=== PATIENT | female | born 1960 | race Caucasian/White ===

== ENCOUNTER 2018-05-05 22:38 | Emergency (ER) | payer OTHER, SELFPAY ==
--- NOTE | 2018-05-06 00:50 | ER ---
Nurse's Notes [facility] Name: Estephanie Paige Age: 57 yrs Sex: Female : 1960 Arrival Date: 05/05/2018 Time: 22:43 Bed 16 Private MD: Mario Stevens S Diagnosis: Unspecified sprain of left little finger Presentation: 05/05 22:54 Presenting complaint: Patient states: Patient states she injured her left little finger ea getting into her truck about four days ago. States she tried grabbing the handle while getting in and accidently tugged her little finger. Transition of care: patient was not received from another setting of care. Onset of symptoms was May 05, 2018. Risk Assessment: Do you want to hurt yourself or someone else? Patient reports no desire to harm self or others. Initial Sepsis Screen: Does the patient meet any 2 criteria? No. Patient's initial sepsis screen is negative. Does the patient have a suspected source of infection? No. Patient's initial sepsis screen is negative. Care prior to arrival: None. 22:54 Method Of Arrival: Ambulatory ea 22:54 Acuity: SARA 3 ea Triage Assessment: 22:58 General: Appears uncomfortable, Behavior is calm, cooperative, appropriate for age. ea Pain: Complains of pain in palmar aspect of distal phalanx of left little finger, palmar aspect of middle phalanx of left little finger and palmar aspect of proximal phalanx of left little finger Pain currently is 6 out of 10 on a pain scale. Quality of pain is described as aching. Neuro: Level of Consciousness is awake, alert, obeys commands, Oriented to person, place, time, situation. Cardiovascular: Heart tones S1 S2 present Patient's skin is warm and dry. Respiratory: Airway is patent Respiratory effort is even, unlabored, Respiratory pattern is regular, symmetrical, Breath sounds are clear bilaterally. GI: No deficits noted. Musculoskeletal: Range of motion: limited in DIP of left little finger, PIP of left little finger and MCP of left little finger Swelling present in palmar aspect of distal phalanx of left little finger, palmar aspect of middle phalanx of left little finger and palmar aspect of proximal phalanx of left little finger. Injury Description: swelling noted to left little finger. 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 - Social history:: Smoking status: Patient/guardian denies using tobacco. - Ebola Screening: : No symptoms or risks identified at this time. Screenin:01 Abuse screen: Denies threats or abuse. Nutritional screening: No deficits noted. ea Tuberculosis screening: No symptoms or risk factors identified. Fall Risk None identified. Assessment: 23:41 Reassessment: Patient and/or family updated on plan of care and expected duration. Pain ea level reassessed. Patient is alert, oriented x 3, equal unlabored respirations, skin warm/dry/pink. 05/06 00:55 Reassessment: Patient and/or family updated on plan of care and expected duration. Pain ea level reassessed. Patient is alert, oriented x 3, equal unlabored respirations, skin warm/dry/pink. Discharge instructions given to patient verbalized the understanding of instructions Patient states feeling better. Patient states symptoms have improved. Vital Signs: 05/05 23:00 BP 144 / 91; Pulse 81; Resp 18; Temp 98.4; Pulse Ox 99% on R/A; Weight 101.6 kg; Height ea 5 ft. 6 in. (167.64 cm); Pain 7/10; 23:51 BP 122 / 80; Pulse 90; Resp 18; Pulse Ox 100% on R/A; mt 05/06 00:45 BP 105 / 86; Pulse 79; Resp 18; Pulse Ox 98% on R/A; Pain 3/10; ea 05/05 23:00 Body Mass Index 36.15 (101.60 kg, 167.64 cm) ea ED Course: 05/05 22:43 Patient arrived in ED. al2 22:43 Mario Stevens MD is Private Physician. al2 22:53 Kathy Phan RN is Primary Nurse. ea 22:56 Triage completed. ea 23:02 Patient has correct armband on for positive identification. Bed in low position. Call ea light in reach. Side rails up X 1. 23:02 Arm band placed on right wrist. Patient placed in an exam room, on a stretcher, on ea pulse oximetry. 23:20 left little finger injury. ea 23:25 Keith Koenig NP is PHCP. pm1 23:25 Quentin Hubbard MD is Attending Physician. pm1 23:45 X-ray completed. Portable x-ray completed in exam room. Patient tolerated procedure kw well. 23:46 XRAY Hand LEFT 2 View In Process Unspecified. EDMS 05/06 00:35 Aluminum finger splint applied to left little finger. mt 00:46 No provider procedures requiring assistance completed. Patient did not have IV access ea during this emergency room visit. 00:48 Carlyle Magana MD is Referral Physician. pm1 Administered Medications: No medications were administered Outcome: 00:48 Discharge ordered by . pm1 01:00 Condition: improved ea 01:00 Discharge instructions given to patient, Instructed on discharge instructions, follow up and referral plans. medication usage, Demonstrated understanding of instructions, follow-up care, medications, Prescriptions given X 1. 01:01 Discharged to home ambulatory, with significant other. ea 01:01 Patient left the ED. ea Signatures: Dispatcher [employer] EDIN Maci Garsia Keith Koenig NP HOSPICE COMMUNITY LIAISON pm1 Lesia Loya mt, Elena, KENTRELL RN Teresita Lagos
--- NOTE | 2018-05-06 00:50 | EDPHYS ---
Physician Documentation [facility] Name: Estephanie Paige Age: 57 yrs Sex: Female : 1960 Arrival Date: 05/05/2018 Time: 22:43 Bed 16 Private MD: Mario Stevens S ED Physician Quentin Hubbard HPI: 05/06 00:40 This 57 yrs old Female presents to ER via Ambulatory with complaints of Hand pm1 Injury. 00:40 The patient or guardian reports pain. The complaints affect the PIP of left little pm1 finger. Context: The problem was sustained at home, resulted from possible jamming of finger when reaching for pull up bar while getting in and out of truck. Onset: The symptoms/episode began/occurred 4 day(s) ago. Modifying factors: The symptoms are alleviated by nothing, the symptoms are aggravated by bending 5th finger. Associated signs and symptoms: Pertinent negatives: cyanosis distally, decreased sensation distally, numbness distally, tingling distally. Severity of symptoms: in the emergency department the symptoms are actually worse. The patient has not experienced similar symptoms in the past. The patient has not recently seen a physician. 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 - Social history:: Smoking status: Patient/guardian denies using tobacco. - Ebola Screening: : No symptoms or risks identified at this time. ROS: 05/06 00:40 Constitutional: Negative for fever, chills, and weight loss, Eyes: Negative for injury, pm1 pain, redness, and discharge, ENT: Negative for injury, pain, and discharge, Neck: Negative for injury, pain, and swelling, Cardiovascular: Negative for chest pain, palpitations, and edema, Respiratory: Negative for shortness of breath, cough, wheezing, and pleuritic chest pain, Abdomen/GI: Negative for abdominal pain, nausea, vomiting, diarrhea, and constipation, Back: Negative for injury and pain. Skin: Negative for injury, rash, and discoloration, Neuro: Negative for headache, weakness, numbness, tingling, and seizure. MS/extremity: Positive for pain, of the left hand and PIP of left little finger, Negative for decreased range of motion, deformity. Exam: 00:40 Constitutional: This is a well developed, well nourished patient who is awake, alert, pm1 and in no acute distress. Head/Face: Normocephalic, atraumatic. Eyes: Pupils equal round and reactive to light, extra-ocular motions intact. Lids and lashes normal. Conjunctiva and sclera are non-icteric and not injected. Cornea within normal limits. Periorbital areas with no swelling, redness, or edema. ENT: Nares patent. No nasal discharge, no septal abnormalities noted. Tympanic membranes are normal and external auditory canals are clear. Oropharynx with no redness, swelling, or masses, exudates, or evidence of obstruction, uvula midline. Mucous membranes moist. Neck: Trachea midline, no thyromegaly or masses palpated, and no cervical lymphadenopathy. Supple, full range of motion without nuchal rigidity, or vertebral point tenderness. No Meningismus. Chest/axilla: Normal chest wall appearance and motion. Nontender with no deformity. No lesions are appreciated. Cardiovascular: Regular rate and rhythm with a normal S1 and S2. No gallops, murmurs, or rubs. Normal PMI, no JVD. No pulse deficits. Respiratory: Lungs have equal breath sounds bilaterally, clear to auscultation and percussion. No rales, rhonchi or wheezes noted. No increased work of breathing, no retractions or nasal flaring. Abdomen/GI: Soft, non-tender, with normal bowel sounds. No distension or tympany. No guarding or rebound. No evidence of tenderness throughout. Back: No spinal tenderness. No costovertebral tenderness. Full range of motion. 00:40 Skin: Warm, dry with normal turgor. Normal color with no rashes, no lesions, and no evidence of cellulitis. 00:40 Musculoskeletal/extremity: Extremities: grossly normal except: noted in the PIP of left little finger: tenderness. 00:40 Neuro: Orientation: is normal, Motor: is normal, moves all fours. Vital Signs: 05/05 23:00 BP 144 / 91; Pulse 81; Resp 18; Temp 98.4; Pulse Ox 99% on R/A; Weight 101.6 kg; Height ea 5 ft. 6 in. (167.64 cm); Pain 7/10; 23:51 BP 122 / 80; Pulse 90; Resp 18; Pulse Ox 100% on R/A; mt 05/06 00:45 BP 105 / 86; Pulse 79; Resp 18; Pulse Ox 98% on R/A; Pain 3/10; ea 05/05 23:00 Body Mass Index 36.15 (101.60 kg, 167.64 cm) ea MDM: 00:13 Patient medically screened. pm1 00:47 Data reviewed: vital signs. Data interpreted: Pulse oximetry: on room air is 98 %. pm1 Interpretation: normal. Counseling: I had a detailed discussion with the patient and/or guardian regarding: the historical points, exam findings, and any diagnostic results supporting the discharge/admit diagnosis, radiology results, the need for outpatient follow up, a hand specialist, to return to the emergency department if symptoms worsen or persist or if there are any questions or concerns that arise at home. 05/05 23:20 Order name: XRAY Hand LEFT 2 View ea 05/06 00:47 Order name: Splint - Finger; Complete Time: 00:48 pm1 Administered Medications: No medications were administered Disposition: 04:25 Co-signature as Attending Physician, Quentin Hubbard MD I agree with the assessment and wa plan of care. Disposition: 05/06/18 00:48 Discharged to Home. Impression: Unspecified sprain of left little finger. - Condition is Stable. - Discharge Instructions: Cast or Splint Care, Adult, Finger Sprain, Adult. - Prescriptions for Naprosyn 500 mg Oral Tablet - take 1 tablet by ORAL route 2 times per day take with food; 30 tablet. - Medication Reconciliation Form, Thank You Letter form. - Follow up: Emergency Department; When: As needed; Reason: Worsening of condition. Follow up: Carlyle Magana MD; When: 5 - 6 days; Reason: Recheck today's complaints, Continuance of care, Re-evaluation by your physician. - Problem is new. - Symptoms have improved. Signatures: Dispatcher [employer] EDMS Keith Koenig, [employer] W[employer]ER pm1 Kathy Phan, Quentin Smith RN, ea, MD MD wa Corrections: (The following items were deleted from the chart) 00:49 00:48 05/06/2018 00:48 Discharged to Home. Impression: Other sprain of left index pm1 finger. Condition is Stable. Forms are Medication Reconciliation Form, Thank You Letter, Antibiotic Education, Prescription Opioid Use. Follow up: Emergency Department; When: As needed; Reason: Worsening of condition. Follow up: Carlyle Magana; When: 2 - 3 days; Reason: Recheck today's complaints, Continuance of care, Re-evaluation by your physician. Problem is new. Symptoms have improved. pm1 00:50 00:49 05/06/2018 00:48 Discharged to Home. Impression: Other sprain of left index pm1 finger. Condition is Stable. Discharge Instructions: Cast or Splint Care, Adult, Finger Sprain, Adult. Prescriptions for Naprosyn 500 mg Oral Tablet - take 1 tablet by ORAL route 2 times per day take with food; 30 tablet. and Forms are Medication Reconciliation Form, Thank You Letter. Follow up: Emergency Department; When: As needed; Reason: Worsening of condition. Follow up: Carlyle Magana; When: 5 - 6 days; Reason: Recheck today's complaints, Continuance of care, Re-evaluation by your physician. Problem is new. Symptoms have improved. pm1 01:01 00:50 05/06/2018 00:48 Discharged to Home. Impression: Unspecified sprain of left ea little finger. Condition is Stable. Discharge Instructions: Cast or Splint Care, Adult, Finger Sprain, Adult. Prescriptions for Naprosyn 500 mg Oral Tablet - take 1 tablet by ORAL route 2 times per day take with food; 30 tablet. and Forms are Medication Reconciliation Form, Thank You Letter. Follow up: Emergency Department; When: As needed; Reason: Worsening of condition. Follow up: Carlyle Magana; When: 5 - 6 days; Reason: Recheck today's complaints, Continuance of care, Re-evaluation by your physician. Problem is new. Symptoms have improved. pm1
--- NOTE | 2018-05-06 08:39 | RAD REPORT ---
EXAM DESCRIPTION: RAD - Hand Left 2 View - 05/05/2018 11:46 pm CLINICAL HISTORY: Left hand pain, pain to the fifth digit COMPARISON: None. FINDINGS: No fracture is identified. There is no dislocation or periosteal reaction noted. IP joint space narrowing is present in the hand. Joint space narrowing is most notable at the fifth DIP joint. No spurring or erosive changes seen. MCP joints are spared. No foreign body or other soft tissue abn ormality. 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 No acute or destructive finding.
== END 2018-05-06 01:01 | disposition home or self-care (01) ==
LOC: ER 22:38
DX: S63.617A Unspecified sprain of left little finger, initial encounter (principal); X58.XXXA Exposure to other specified factors, initial encounter; Y93.89 Activity, other specified; Y92.009 Unspecified place in unspecified non-institutional (private) residence as the place of occurrence of the external cause; Z88.5 Allergy status to narcotic agent; F32.9 Major depressive disorder, single episode, unspecified; R73.03 Prediabetes
CPT/HCPCS: 99284

== ENCOUNTER 2018-08-08 08:40 | Emergency (ER) | payer OTHER, SELFPAY ==
--- OUTSIDE RECORDS SUMMARY | 2018-08-08 08:42 | XMS REPORT ---
:1960 [facility] Address [address] [place] [address] Dr. Mcdermott [address] [place] [id number] Care Team Providers Name Role Phone Unavailable Unavailable Unavailable Problems This patient has no known problems. Allergies, Adverse Reactions, Alerts This patient has no known allergies or adverse reactions. Medications This patient has no known medications.
--- NOTE | 2018-08-08 09:08 | ER ---
Nurse's Notes [facility] Name: Estephanie Paige Age: 57 yrs Sex: Female : 1960 Arrival Date: 08/08/2018 Time: 08:43 Bed 8 Private MD: Mario Stevens S Diagnosis: Acute upper respiratory infection, unspecified Presentation: 08/08 08:54 Presenting complaint: Patient states: COUGH AND CONGESTION. Transition of care: patient bp was not received from another setting of care. Onset of symptoms was August 03, 2018. Risk Assessment: Do you want to hurt yourself or someone else? Patient reports no desire to harm self or others. Initial Sepsis Screen: Does the patient meet any 2 criteria? No. Patient's initial sepsis screen is negative. Does the patient have a suspected source of infection? No. Patient's initial sepsis screen is negative. Care prior to arrival: None. 08:54 Method Of Arrival: Ambulatory bp 08:54 Acuity: SARA 3 bp Triage Assessment: 08:56 General: Appears in no apparent distress. comfortable, ill, obese, Behavior is calm, bp cooperative, appropriate for age. Pain: Complains of pain in neck. EENT: No deficits noted. Neuro: Level of Consciousness is awake, alert, obeys commands, Oriented to person, place, time, situation, Appropriate for age. Cardiovascular: No deficits noted. Respiratory: Breath sounds with crackles bilaterally. GI: No signs and/or symptoms were reported involving the gastrointestinal system. : No signs and/or symptoms were reported regarding the genitourinary system. Derm: No deficits noted. Musculoskeletal: Circulation, motion, and sensation intact. Range of motion: intact in all extremities. 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 - Social history:: Smoking status: unknown. - Ebola Screening: : Patient negative for fever greater than or equal to 101.5 degrees Fahrenheit, and additional compatible Ebola Virus Disease symptoms Patient denies exposure to infectious person Patient denies travel to an Ebola-affected area in the 21 days before illness onset No symptoms or risks identified at this time. Screenin:00 Abuse screen: Denies threats or abuse. Denies injuries from another. Nutritional bp screening: No deficits noted. Tuberculosis screening: No symptoms or risk factors identified. Fall Risk None identified. Assessment: 09:00 General: SEE TRIAGE NOTE. Cardiovascular: No deficits noted. Cardiovascular: Rhythm is bp sinus rhythm. Cardiovascular: Capillary refill < 3 seconds Patient's skin is warm and dry. Respiratory: Reports cough that is productive, Airway is patent Respiratory effort is even, unlabored, Respiratory pattern is regular, symmetrical. 09:00 Respiratory: Breath sounds are clear bilaterally. bp 09:24 Reassessment: PT D/C HOME AMBULATORY, DX WITH URI. bp Vital Signs: 08:56 BP 122 / 72; Pulse 92; Resp 16; Temp 98.2; Pulse Ox 97% ; Weight 99.79 kg; Height 5 ft. bp 5 in. (165.10 cm); 09:25 BP 115 / 55; Pulse 87; Resp 14; Pulse Ox 97% ; bp 08:56 Body Mass Index 36.61 (99.79 kg, 165.10 cm) bp ED Course: 08:43 Patient arrived in ED. rg4 08:43 Mario Stevens MD is Private Physician. rg4 08:50 Miguel Christian, RN is Primary Nurse. bp 08:51 Gagan Barry PA is PHCP. jr8 08:51 Alex Ashley MD is Attending Physician. jr8 08:55 Triage completed. bp 09:00 Patient has correct armband on for positive identification. Bed in low position. Call bp light in reach. Side rails up X2. Adult w/ patient. 09:04 Arm band placed on. bp 09:20 No provider procedures requiring assistance completed. Patient did not have IV access bp during this emergency room visit. Administered Medications: No medications were administered Outcome: 09:07 Discharge ordered by . jr8 09:24 Discharged to home ambulatory, with family. bp 09:24 Condition: stable 09:24 Discharge instructions given to patient, Instructed on discharge instructions, follow up and referral plans. medication usage, Demonstrated understanding of instructions, follow-up care, medications, Prescriptions given X 3. 09:38 Patient left the ED. bp Signatures: Gagan Barry PA PA jr8 Marley Perales rg4 Miguel Christian, RN RN bp
--- NOTE | 2018-08-08 09:08 | EDPHYS ---
Physician Documentation [facility] Name: Estephanie Paige Age: 57 yrs Sex: Female : 1960 Arrival Date: 08/08/2018 Time: 08:43 Bed 8 Private MD: Mario Stevens S ED Physician Alex Ashley HPI: 08/08 09:05 This 57 yrs old Female presents to ER via Ambulatory with complaints of jr8 Cough, Congestion, Sore Throat. 09:05 The patient or guardian reports cough, that is intermittent, described as mild, with jr8 productive sputum, that is yellow, rhinorrhea, sore throat, sinus congestion . Onset: The symptoms/episode began/occurred gradually, 5 day(s) ago. Severity of symptoms: At their worst the symptoms were mild, in the emergency department the symptoms are unchanged. Modifying factors: The symptoms are alleviated by nothing, the symptoms are aggravated by nothing. Associated signs and symptoms: The patient has no apparent associated signs or symptoms. The patient has not experienced similar symptoms in the past. The patient has not recently seen a physician. MARKETING LIAISON: 08:56 LMP N/A - Post-menopause bp Historical: - Allergies: 08:56 Morphine; bp - Home Meds: 08:56 Metformin Oral [Active]; Zoloft 50 mg Oral tab [Active]; bp - PMHx: 08:56 Depression; PRE DIABETIC; bp - Immunization history:: Adult Immunizations up to date. - Social history:: Smoking status: unknown. - Ebola Screening: : Patient negative for fever greater than or equal to 101.5 degrees Fahrenheit, and additional compatible Ebola Virus Disease symptoms Patient denies exposure to infectious person Patient denies travel to an Ebola-affected area in the 21 days before illness onset No symptoms or risks identified at this time. ROS: 09:05 Eyes: Negative for injury, pain, redness, and discharge, Neck: Negative for injury, jr8 pain, and swelling, Cardiovascular: Negative for chest pain, palpitations, and edema, Abdomen/GI: Negative for abdominal pain, nausea, vomiting, diarrhea, and constipation, Back: Negative for injury and pain, MS/Extremity: Negative for injury and deformity, Skin: Negative for injury, rash, and discoloration, Neuro: Negative for headache, weakness, numbness, tingling, and seizure. 09:05 ENT: Positive for rhinorrhea, sinus congestion, sinus pain, sore throat. 09:05 Respiratory: Positive for cough, with yellow sputum. Exam: 09:05 Head/Face: Normocephalic, atraumatic. Eyes: Pupils equal round and reactive to light, jr8 extra-ocular motions intact. Lids and lashes normal. Conjunctiva and sclera are non-icteric and not injected. Cornea within normal limits. Periorbital areas with no swelling, redness, or edema. ENT: Nares patent. No nasal discharge, no septal abnormalities noted. Tympanic membranes are normal and external auditory canals are clear. Oropharynx with no redness, swelling, or masses, exudates, or evidence of obstruction, uvula midline. Mucous membranes moist. Neck: Trachea midline, no thyromegaly or masses palpated, and no cervical lymphadenopathy. Supple, full range of motion without nuchal rigidity, or vertebral point tenderness. No Meningismus. Cardiovascular: Regular rate and rhythm with a normal S1 and S2. No gallops, murmurs, or rubs. Normal PMI, no JVD. No pulse deficits. Respiratory: Lungs have equal breath sounds bilaterally, clear to auscultation and percussion. No rales, rhonchi or wheezes noted. No increased work of breathing, no retractions or nasal flaring. Abdomen/GI: Soft, non-tender, with normal bowel sounds. No distension or tympany. No guarding or rebound. No evidence of tenderness throughout. Back: No spinal tenderness. No costovertebral tenderness. Full range of motion. Skin: Warm, dry with normal turgor. Normal color with no rashes, no lesions, and no evidence of cellulitis. MS/ Extremity: Pulses equal, no cyanosis. Neurovascular intact. Full, normal range of motion. Neuro: Awake and alert, GCS 15, oriented to person, place, time, and situation. Cranial nerves II-XII grossly intact. Motor strength 5/5 in all extremities. Sensory grossly intact. Cerebellar exam normal. Normal gait. Vital Signs: 08:56 BP 122 / 72; Pulse 92; Resp 16; Temp 98.2; Pulse Ox 97% ; Weight 99.79 kg; Height 5 ft. bp 5 in. (165.10 cm); 09:25 BP 115 / 55; Pulse 87; Resp 14; Pulse Ox 97% ; bp 08:56 Body Mass Index 36.61 (99.79 kg, 165.10 cm) bp MDM: 08:51 Patient medically screened. jr8 09:05 Data reviewed: vital signs, nurses notes, and as a result, I will discharge patient. jr8 Data interpreted: Pulse oximetry: on room air is 97 %. Interpretation: normal. Counseling: I had a detailed discussion with the patient and/or guardian regarding: the historical points, exam findings, and any diagnostic results supporting the discharge/admit diagnosis, the need for outpatient follow up, a family practitioner, to return to the emergency department if symptoms worsen or persist or if there are any questions or concerns that arise at home. Administered Medications: No medications were administered Disposition: 08/08/18 09:07 Discharged to Home. Impression: Acute upper respiratory infection, unspecified. - Condition is Stable. - Discharge Instructions: Upper Respiratory Infection, Adult. - Prescriptions for Prednisone 20 mg Oral Tablet - take 1 tablet by ORAL route once daily for 5 days; 5 tablet. Tessalon Perles 100 mg Oral Capsule - take 1 capsule by ORAL route every 8 hours As needed; 15 capsule. Guaifenesin AC 10- 100 mg/5 mL Oral Liquid - take 10 milliliter by ORAL route every 4 hours As needed; 240 milliliter. - Medication Reconciliation Form, Thank You Letter, Antibiotic Education, Prescription Opioid Use, Work release form form. - Follow up: Private Physician; When: 2 - 3 days; Reason: Recheck today's complaints, Continuance of care, Re-evaluation by your physician. - Problem is new. - Symptoms have improved. Addendum: 08/12/2018 08:04 Co-signature as Attending Physician, Alex Ashley MD I agree with the assessment and c bruce plan of care. Signatures: Alex Ashley MD MD cha Roszak, Josh, PA PA jr8 Miguel Christian, RN RN bp Corrections: (The following items were deleted from the chart) 08/08 09:38 09:07 08/08/2018 09:07 Discharged to Home. Impression: Acute upper respiratory bp infection, unspecified. Condition is Stable. Forms are Medication Reconciliation Form, Thank You Letter, Antibiotic Education, Prescription Opioid Use. Follow up: Private Physician; When: 2 - 3 days; Reason: Recheck today's complaints, Continuance of care, Re-evaluation by your physician. Problem is new. Symptoms have improved. jr8
== END 2018-08-08 09:38 | disposition home or self-care (01) ==
LOC: ER 08:40
DX: J06.9 Acute upper respiratory infection, unspecified (principal); F32.9 Major depressive disorder, single episode, unspecified; R73.03 Prediabetes; Z88.5 Allergy status to narcotic agent
CPT/HCPCS: 99284

== ENCOUNTER 2019-02-09 14:10 | Observation (INO) | payer OTHER ==
--- OUTSIDE RECORDS SUMMARY | 2019-02-09 14:21 | XMS REPORT ---
:1960 [facility] Address [address] [place] [address] Dr. Mcdermott [address] [place] [id number] Care Team Providers Name Role Phone Unavailable Unavailable Unavailable Problems This patient has no known problems. Allergies, Adverse Reactions, Alerts This patient has no known allergies or adverse reactions. Medications This patient has no known medications.
[2019-02-09] MEDS ORDERED: NA CHLORIDE 0.9% 1,000 ML ONE (15:07)
[2019-02-09 15:14] LABS: Absolute Lymphocytes (CBC) 2.6 K/uL (0.7-4.9); Basophils % 0.8 % (0-1.3); Eosinophils % 0.9 % (0-4.4); Hematocrit 36.2 % (36.0-45.0); Lymphocytes % 39.6 % (15.3-44.8); MPV 9.8 fL (7.6-11.3); Monocytes % 5.9 % (3.3-12.3); RBC Red Blood Cell Count 5.37 M/uL (3.86-4.86)
[2019-02-09 15:17] LABS: Protime INR 0.9
[2019-02-09 15:34] LABS: ALT/SGPT 25 U/L (12-78); AST/SGOT 15 U/L (15-37); Albumin 3.7 g/dL (3.4-5.0); Alkaline Phosphatase 84 U/L (45-117); BUN Blood Urea Nitrogen 9 mg/dL (7-18); Bicarbonate 27 mmol/L (21-32); Bilirubin Direct < 0.1 mg/dL (0-0.2); Bilirubin Total 0.2 mg/dL (0.2-1.0); Glucose Level 141 mg/dL (74-106); Lipase 107 U/L (73-393); Magnesium 2.3 mg/dL (1.8-2.4); NT PRO-BNP 55 pg/mL (<125); Potassium 3.9 mmol/L (3.5-5.1); Protein, Total 7.1 g/dL (6.4-8.2); Sodium Level 142 mmol/L (136-145); Troponin I < 0.02 ng/mL (0.0-0.045)
[2019-02-09 15:37] LABS: Anisocytosis 1+; Blood Morphology Comment NOTED (NOT SEEN); Platelet Estimate ADEQ; Urine White Blood Cell Casts OK
--- NOTE | 2019-02-09 16:01 | RAD REPORT ---
EXAM DESCRIPTION: US - Abdomen Exam Limited - 02/09/2019 3:46 pm CLINICAL HISTORY: Abdominal pain COMPARISON: None. FINDINGS: No gallstones, sludge or other abnormalities within the gallbladder lumen. There is no wal l thickening or pericholecystic fluid. No common duct stone or biliary tree dilatation identified. Partially imaged liver shows a coarsened, increased echogenicity typical for diffuse fatty infiltrati on. The liver is not fully evaluated. IMPRESSION: Normal gallbladder and biliary tree ultrasound. Fatty infiltration of a partially imaged liver.
[2019-02-09] MEDS ORDERED: FAMOTIDINE 20 MG/2 ML VIAL IV ONE (16:12)
--- NOTE | 2019-02-09 16:14 | RAD REPORT ---
EXAM DESCRIPTION: RAD - Chest Single View - 02/09/2019 3:54 pm CLINICAL HISTORY: Epigastric pain radiating to the back COMPARISON: September 2013 TECHNIQUE: AP portable chest image was obtained 1537 hours . FINDINGS: Lung volumes are low. No peripheral mass, consolidation or failure finding. Lung markings match comparison. Heart and vasculature are normal. No measurable pleural effusion and no pneumothora x. No acute bony abnormality seen. No acute aortic findings suspected. IMPRESSION: No acute cardiopulmonary process. No significant interval change.
--- NOTE | 2019-02-09 16:34 | ER ---
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 Pt denies nausea/vomiting. Transition of care: patient was not received from another setting of care. Onset of symptoms was February 09, 2019. Risk Assessment: Do you want to hurt yourself or someone else? Patient reports no desire to harm self or others. Initial Sepsis Screen: Does the patient meet any 2 criteria? No. Patient's initial sepsis screen is negative. Does the patient have a suspected source of infection? No. Patient's initial sepsis screen is negative. Care prior to arrival: Glucose check: 178 Oxygen administered. via nasal cannula. 14:20 Method Of Arrival: EMS: [facility] aa5 14:20 Acuity: SARA 3 aa5 Historical: - Allergies: 14:22 Morphine; aa5 - Home Meds: 14:22 Zoloft 50 mg Oral tab [Active]; Metformin Oral [Active]; aa5 - PMHx: 14:22 Depression; Diabetes - NIDDM; aa5 - PSHx: 14:22 Knee surgery; right foot; right shoulder; Tonsillectomy; Gastric Bypass; aa5 - Immunization history:: Adult Immunizations up to date. - Ebola Screening: : No symptoms or risks identified at this time. - Family history:: not pertinent. - Social history:: Smoking status: unknown. Screenin:25 Abuse screen: Denies threats or abuse. Nutritional screening: No deficits noted. rb1 Tuberculosis screening: No symptoms or risk factors identified. Fall Risk None identified. Assessment: 14:25 General: Appears in no apparent distress. comfortable, Behavior is calm, cooperative, rb1 Denies fever. General: Pt. had just eaten chili sauce before the pain started.. Pain: Complains of pain in epigastric area Pain radiates to back Pain currently is 5 out of 10 on a pain scale. Neuro: Level of Consciousness is awake, alert, obeys commands, Oriented to person, place, time, situation. Cardiovascular: Capillary refill < 3 seconds is brisk in bilateral fingers. Respiratory: Airway is patent Respiratory effort is even, unlabored, Respiratory pattern is regular, symmetrical. Respiratory: Denies shortness of breath. GI: No signs and/or symptoms were reported involving the gastrointestinal system. : No signs and/or symptoms were reported regarding the genitourinary system. Derm: Skin is pink, warm \\T\\ dry. Musculoskeletal: Range of motion: intact in all extremities. 15:25 Reassessment: Patient appears in no apparent distress at this time. No changes from rb1 previously documented assessment. Family at bedside. 16:22 Reassessment: Patient appears in no apparent distress at this time. Patient and/or rb1 family updated on plan of care and expected duration. Pain level reassessed. Patient is alert, oriented x 3, equal unlabored respirations, skin warm/dry/pink. Pt. reports that the pain is manageable right now. 17:21 Reassessment: Patient appears in no apparent distress at this time. Patient and/or rb1 family updated on plan of care and expected duration. Pain level reassessed. 18:19 Reassessment: Patient appears in no apparent distress at this time. Patient and/or rb1 family updated on plan of care and expected duration. Pain level reassessed. Patient is alert, oriented x 3, equal unlabored respirations, skin warm/dry/pink. 19:00 General: Appears in no apparent distress. Behavior is calm, cooperative, appropriate ea for age. Pain: Denies pain. Neuro: Level of Consciousness is awake, alert, obeys commands, Oriented to person, place, time, situation. Cardiovascular: Patient's skin is warm and dry. Respiratory: Airway is patent Respiratory effort is even, unlabored, Respiratory pattern is regular, symmetrical. GI: No signs and/or symptoms were reported involving the gastrointestinal system. Derm: Skin is pink, warm \\T\\ dry. 20:15 Reassessment: Patient and/or family updated on plan of care and expected duration. Pain ea level reassessed. Patient is alert, oriented x 3, equal unlabored respirations, skin warm/dry/pink. Report called to receiving nurse on second floor. Pt admitted to second floor, taken via wheelchair per tech. Pt tolerating well. Vital Signs: 14:20 BP 126 / 74 LA; Pulse 80; Resp 16 S; Temp 98.1(O); Pulse Ox 99% on R/A; Weight 99.79 kg aa5 (R); Height 5 ft. 6 in. (167.64 cm) (R); Pain 1/10; 14:22 BP 117 / 61 RA; aa5 15:20 BP 120 / 76; Pulse 81; Resp 16; Temp 98.2; Pulse Ox 98% on R/A; Pain 0/10; rb1 16:20 BP 114 / 72; Pulse 75; Resp 14; Temp 98.2(O); Pulse Ox 99% on R/A; Pain 3/10; rb1 17:20 BP 112 / 59; Pulse 79; Resp 15; Temp 98.4(O); Pulse Ox 98% on R/A; Pain 3/10; rb1 18:20 BP 112 / 67; Pulse 79; Resp 17; Temp 98.5(O); Pulse Ox 100% ; Pain 3/10; rb1 19:35 BP 127 / 70; Pulse 75; Resp 18; Pulse Ox 99% ; ea 20:15 BP 130 / 70; Pulse 76; Resp 18; Pulse Ox 100% ; ea 14:20 Body Mass Index 35.51 (99.79 kg, 167.64 cm) aa5 ED Course: 14:19 Patient arrived in ED. aa5 14:20 Arm band placed on Patient placed in an exam room, on a stretcher. aa5 14:21 Triage completed. aa5 14:25 Patient has correct armband on for positive identification. Placed in gown. Bed in low rb1 position. Call light in reach. Side rails up X 1. site monitor on. Pulse ox on. NIBP on. 14:35 Rabia Gamez, RN is Primary Nurse. rb1 14:36 Alex Ashley MD is Attending Physician. vamsi 14:53 EKG done, by senior wind turbine technician. reviewed by Alex Ashley MD. tc 14:54 Initial lab(s) drawn, by co, sent to lab. Inserted saline lock: 20 gauge in right dh3 antecubital area, using aseptic technique. Blood collected. 15:47 US Abdomen Limited In Process Unspecified. EDMS 15:52 X-ray completed. Portable x-ray completed in exam room. Patient tolerated procedure ml well. 16:05 Chest Single View In Process Unspecified. EDMS 16:32 Alberto Cerna MD is Hospitalizing Provider. [facility] 17:32 CT Aorta for Dissection In Process Unspecified. EDMS 19:14 No provider procedures requiring assistance completed. Patient admitted, IV remains in ea place. Administered Medications: 14:58 Drug: NS 0.9% 1000 ml Route: IV; Rate: 125 ml/hr; Site: right antecubital; rb1 20:25 Follow up: Response: No adverse reaction; IV Status: Infusion continued upon admission; ea IV Intake: 500ml 15:20 Drug: Pepcid 20 mg Route: IVP; Site: right antecubital; rb1 15:35 Follow up: Response: No adverse reaction rb1 16:47 Drug: ProTONIX 40 mg Route: IVP; Site: right antecubital; rb1 17:00 Follow up: Response: No adverse reaction rb1 16:47 Drug: Aspirin 162 mg Route: PO; rb1 17:00 Follow up: Response: No adverse reaction rb1 17:47 Not Given (Patient Refused): fentaNYL (PF) 25 mcg IVP once rb1 17:48 Not Given (Patient Refused): Zofran 4 mg IVP once; over 2 minutes rb1 18:54 Not Given (Patient Refused): fentaNYL (PF) 25 mcg IVP once rb1 Intake: 20:25 IV: 500ml; Total: 500ml. ea Outcome: 16:33 Decision to Hospitalize by Provider. [facility] 19:34 Instructed on the need for admit, Demonstrated understanding of instructions. ea 20:25 Admitted to Med/surg accompanied by tech, via wheelchair, room 230, with chart, Report ea called to Receiving nurse on second floor 20:25 Condition: stable 20:28 Patient left the ED. ea Signatures: Dispatcher [employer] EDMS Alex Ashley MD MD cha Lopez, Melissa ml Calderon, Audri, RN RN aa5 My Mejia, scientific informatics analyst EKG Rabia Mcgrath, RN RN rb1 Ashley Meyers formerly [facility] Kathy Phan RN RN ea
--- NOTE | 2019-02-09 16:34 | EDPHYS ---
Physician Documentation [facility] Name: Estephanie Paige Age: 58 yrs Sex: Female : 1960 Arrival Date: 02/09/2019 Time: 14:19 Bed 15 Private MD: ED Physician Alex Ashley HPI: 02/09 15:09 This 58 yrs old Female presents to ER via EMS with complaints of Epigastric vamsi Pain. 15:09 The patient presents with abdominal pain in the epigastric area, in the upper abdomen. vamsi Onset: The symptoms/episode began/occurred just prior to arrival. The symptoms radiate to back. Associated signs and symptoms: none. The symptoms are described as crampy. Modifying factors: The symptoms are alleviated by nothing, the symptoms are aggravated by nothing. Severity of pain: At its worst the pain was mild moderate in the emergency department the pain has improved moderately. The patient has experienced similar episodes in the past, several times. Historical: - Allergies: 14:22 Morphine; aa5 - Home Meds: 14:22 Zoloft 50 mg Oral tab [Active]; Metformin Oral [Active]; aa5 - PMHx: 14:22 Depression; Diabetes - NIDDM; aa5 - PSHx: 14:22 Knee surgery; right foot; right shoulder; Tonsillectomy; Gastric Bypass; aa5 - Immunization history:: Adult Immunizations up to date. - Ebola Screening: : No symptoms or risks identified at this time. - Family history:: not pertinent. - Social history:: Smoking status: unknown. ROS: 15:09 Constitutional: Negative for fever, chills, and weight loss, Eyes: Negative for injury, vamsi pain, redness, and discharge, ENT: Negative for injury, pain, and discharge, Neck: Negative for injury, pain, and swelling, Respiratory: Negative for shortness of breath, cough, wheezing, and pleuritic chest pain, Back: Negative for injury and pain, : Negative for injury, bleeding, discharge, and swelling, MS/Extremity: Negative for injury and deformity, Skin: Negative for injury, rash, and discoloration, Neuro: Negative for headache, weakness, numbness, tingling, and seizure, Psych: Negative for depression, anxiety, suicide ideation, homicidal ideation, and hallucinations, Allergy/Immunology: Negative for hives, rash, and allergies, Endocrine: Negative for neck swelling, polydipsia, polyuria, polyphagia, and marked weight changes, Hematologic/Lymphatic: Negative for swollen nodes, abnormal bleeding, and unusual bruising. 15:09 Cardiovascular: Positive for chest pain, of the diaphragm and xyphoid area. Exam: 15:09 Constitutional: This is a well developed, well nourished patient who is awake, alert, vamsi and in no acute distress. Head/Face: Normocephalic, atraumatic. Eyes: Pupils equal round and reactive to light, extra-ocular motions intact. Lids and lashes normal. Conjunctiva and sclera are non-icteric and not injected. Cornea within normal limits. Periorbital areas with no swelling, redness, or edema. ENT: Nares patent. No nasal discharge, no septal abnormalities noted. Tympanic membranes are normal and external auditory canals are clear. Oropharynx with no redness, swelling, or masses, exudates, or evidence of obstruction, uvula midline. Mucous membranes moist. Neck: Trachea midline, no thyromegaly or masses palpated, and no cervical lymphadenopathy. Supple, full range of motion without nuchal rigidity, or vertebral point tenderness. No Meningismus. Chest/axilla: Normal chest wall appearance and motion. Nontender with no deformity. No lesions are appreciated. Cardiovascular: Regular rate and rhythm with a normal S1 and S2. No gallops, murmurs, or rubs. Normal PMI, no JVD. No pulse deficits. Respiratory: Lungs have equal breath sounds bilaterally, clear to auscultation and percussion. No rales, rhonchi or wheezes noted. No increased work of breathing, no retractions or nasal flaring. Back: No spinal tenderness. No costovertebral tenderness. Full range of motion. Female : Normal external genitalia. Skin: Warm, dry with normal turgor. Normal color with no rashes, no lesions, and no evidence of cellulitis. MS/ Extremity: Pulses equal, no cyanosis. Neurovascular intact. Full, normal range of motion. Neuro: Awake and alert, GCS 15, oriented to person, place, time, and situation. Cranial nerves II-XII grossly intact. Motor strength 5/5 in all extremities. Sensory grossly intact. Cerebellar exam normal. Normal gait. Psych: Awake, alert, with orientation to person, place and time. Behavior, mood, and affect are within normal limits. 15:09 Abdomen/GI: Inspection: abdomen appears normal, Bowel sounds: normal, Palpation: mild abdominal tenderness, in the epigastric area, Liver: no appreciated palpable abnormalities, Hernia: not appreciated. Vital Signs: 14:20 BP 126 / 74 LA; Pulse 80; Resp 16 S; Temp 98.1(O); Pulse Ox 99% on R/A; Weight 99.79 kg aa5 (R); Height 5 ft. 6 in. (167.64 cm) (R); Pain 1/10; 14:22 BP 117 / 61 RA; aa5 15:20 BP 120 / 76; Pulse 81; Resp 16; Temp 98.2; Pulse Ox 98% on R/A; Pain 0/10; rb1 16:20 BP 114 / 72; Pulse 75; Resp 14; Temp 98.2(O); Pulse Ox 99% on R/A; Pain 3/10; rb1 17:20 BP 112 / 59; Pulse 79; Resp 15; Temp 98.4(O); Pulse Ox 98% on R/A; Pain 3/10; rb1 18:20 BP 112 / 67; Pulse 79; Resp 17; Temp 98.5(O); Pulse Ox 100% ; Pain 3/10; rb1 19:35 BP 127 / 70; Pulse 75; Resp 18; Pulse Ox 99% ; ea 20:15 BP 130 / 70; Pulse 76; Resp 18; Pulse Ox 100% ; ea 14:20 Body Mass Index 35.51 (99.79 kg, 167.64 cm) aa5 MDM: 14:36 Patient medically screened. [facility] 15:11 Data reviewed: vital signs, nurses notes, lab test result(s), EKG, radiologic studies, [facility] plain films, ultrasound. 02/09 15:23 Order name: CBC with Automated Diff; Complete Time: 15:39 [facility] 02/09 15:24 Order name: Protime (+INR); Complete Time: 15:39 [facility] 02/09 15:32 Order name: Basic Metabolic Panel [facility] 02/09 15:32 Order name: Liver (Hepatic) Function [facility] 02/09 15:32 Order name: Troponin I [facility] 02/09 15:32 Order name: NT PRO-BNP [facility] 02/09 14:38 Order name: XRAY Chest (1 view) [facility] 02/09 14:38 Order name: EKG; Complete Time: 15:16 [facility] 02/09 14:38 Order name: Cardiac monitoring; Complete Time: 14:58 [facility] 02/09 15:09 Order name: US Abdomen Limited; Complete Time: 16:28 [facility] 02/09 15:25 Order name: Chest Single View [facility] 02/09 15:32 Order name: Magnesium [facility] 02/09 15:32 Order name: Lipase [facility] 02/09 15:35 Order name: CBC Smear Scan; Complete Time: 15:39 [facility] 02/09 16:29 Order name: CT Aorta for Dissection [facility] 02/09 14:38 Order name: EKG - Nurse/Tech; Complete Time: 14:59 [facility] 02/09 14:38 Order name: IV Saline Lock; Complete Time: 14:59 [facility] 02/09 14:38 Order name: Labs collected and sent; Complete Time: 14:59 [facility] 02/09 14:38 Order name: O2 Per Protocol; Complete Time: 14:59 [facility] 02/09 14:38 Order name: O2 Sat Monitoring; Complete Time: 14:59 [facility] 02/09 14:38 Order name: Urine Dipstick-Ancillary (obtain specimen); Complete Time: 20:25 [facility] Administered Medications: 14:58 Drug: NS 0.9% 1000 ml Route: IV; Rate: 125 ml/hr; Site: right antecubital; rb1 20:25 Follow up: Response: No adverse reaction; IV Status: Infusion continued upon admission; ea IV Intake: 500ml 15:20 Drug: Pepcid 20 mg Route: IVP; Site: right antecubital; rb1 15:35 Follow up: Response: No adverse reaction rb1 16:47 Drug: ProTONIX 40 mg Route: IVP; Site: right antecubital; rb1 17:00 Follow up: Response: No adverse reaction rb1 16:47 Drug: Aspirin 162 mg Route: PO; rb1 17:00 Follow up: Response: No adverse reaction rb1 17:47 Not Given (Patient Refused): fentaNYL (PF) 25 mcg IVP once rb1 17:48 Not Given (Patient Refused): Zofran 4 mg IVP once; over 2 minutes rb1 18:54 Not Given (Patient Refused): fentaNYL (PF) 25 mcg IVP once rb1 Disposition: 02/09/19 16:33 Hospitalization ordered by Alberto Cerna for Observation. Preliminary diagnosis are Chest pain, unspecified, Abdominal tenderness, Type 2 diabetes mellitus. - Bed requested for Telemetry/MedSurg (observation). - Status is Observation. ea - Condition is Stable. - Problem is new. - Symptoms have improved. UTI on Admission? No Signatures: Dispatcher [employer] EDMS Xin Finch RN RN dw Anderson, Corey, MD MD cha Calderon, Audri, RN KENTRELL aa5 Rabia Gamez RN RN rb1 Antunez, Elena, RN RN ea Corrections: (The following items were deleted from the chart) 16:54 15:16 BASIC METABOLIC PANEL+C.LAB.BRZ ordered. EDMS EDMS 16:54 15:16 HEPATIC FUNCTION+C.LAB.BRZ ordered. EDMS EDMS 16:54 15:16 MAGNESIUM+C.LAB.BRZ ordered. EDMS EDMS 16:54 15:16 PROBNP+C.LAB.BRZ ordered. EDMS EDMS 16:54 15:16 TROPONIN (EMERG DEPT USE ONLY)+C.LAB.BRZ ordered. EDMS EDMS 16:54 15:16 LIPASE+C.LAB.BRZ ordered. EDMS EDMS 16:55 15:16 CBC+H.LAB.BRZ ordered. EDMS EDMS 16:55 15:16 PROTIME (+INR)+COAG.LAB.BRZ ordered. EDAR EDMS 18:50 16:33 Hospitalization Ordered by Alberto Cerna MD for Observation. Preliminary diagnosis dw is Chest pain, unspecified; Abdominal tenderness; Type 2 diabetes mellitus. Bed requested for Telemetry/MedSurg (observation). Status is Observation. Condition is Stable. Problem is new. Symptoms have improved. UTI on Admission? No. vamsi 20:28 18:50 02/09/2019 16:33 Hospitalization Ordered by Alberto Cerna MD for Observation. ea Preliminary diagnosis is Chest pain, unspecified; Abdominal tenderness; Type 2 diabetes mellitus. Bed requested for Telemetry/MedSurg (observation). Status is Observation. Condition is Stable. Problem is new. Symptoms have improved. UTI on Admission? No. dw
[2019-02-09] MEDS ORDERED: ASPIRIN EC 81 MG TAB PO ONE (17:06)
[2019-02-09] MEDS ORDERED: FENTANYL CITR 100 MCG/2 ML ONE (17:06)
[2019-02-09] MEDS ORDERED: ONDANSETRON 4 MG/2 ML VIAL ONE (17:06)
[2019-02-09] MEDS ORDERED: PANTOPRAZOLE 40 MG INJ ONE (17:07)
--- NOTE | 2019-02-09 18:20 | RAD REPORT ---
EXAM DESCRIPTION: CT - Angio Aorta For Dissection - 02/09/2019 5:31 pm CLINICAL HISTORY: Chest pain COMPARISON: Chest films same date TECHNIQUE: Dynamically enhanced 3 mm thick images of the chest, abdomen, and upper pelvis were obtai gio during administration of approximately 150mL Isovue 370 IV contrast. Sagittal and coronal reconst ruction images were generated using MIP and reviewed. Exam utilizes a protocol to evaluate entire cou rse of the aorta. All CT scans are performed using dose optimization technique as appropriate and may include automated exposure control or mA/KV adjustment according to patient size. FINDINGS: Aorta is normal in diameter with no dissection or other acute aortic findings. Reconstruct ion images show no significant findings. Pulmonary arteries are normal as well. No cardiomegaly, pericardial thickening or pericardial effusio n. No mass or infiltrate in the lung parenchyma. No pleural thickening, pleural effusion or pneumothorax . No abnormal mediastinal or hilar mass or lymphadenopathy seen. No chest wall mass or abnormal axillar y lymphadenopathy. Celiac, SMA and renal arteries show no suspicious findings. Solid abdominal viscera and bowel show no acute findings. Diffuse fatty infiltration of the liver is noted. Lap band is in place. No acute eso phageal finding evident. No mass or abnormal lymphadenopathy. No free air, free fluid or inflammator y stranding. No urinary bladder abnormality. Technical difficulties precluded immediate written report. Findings were telephoned to the referring physician. IMPRESSION: Negative CT scan of the aorta. No acute or suspicious CT chest finding. Fatty infiltration of the liver. No acute abdomen or pelvis findings.
[2019-02-09] MEDS ORDERED: SODIUM CHLORIDE 0.9% 10ML INJ IV PRN (20:19)
[2019-02-09] MEDS ORDERED: FENTANYL CITR 100 MCG/2 ML IV PRN (20:19)
[2019-02-09] MEDS ORDERED: ACETAMINOPHEN 500 MG TAB PO PRN (20:19)
[2019-02-09] MEDS: INSULIN -REGULAR HUMAN 50 UNIT/0.5 ML ML SQ SCH (20:19)
[2019-02-09] MEDS ORDERED: NITROGLYCERIN 0.4 MG/TAB SL PRN (20:19)
[2019-02-09] MEDS: PANTOPRAZOLE 40 MG INJ IVP SCH (20:43)
[2019-02-09] MEDS: METOPROLOL TAR 50 MG TAB PO SCH (20:51)
[2019-02-09 20:57] LABS: Urine Blood NEGATIVE (NEG); Urine Glucose NEGATIVE (NEG)
[2019-02-09 20:58] LABS: Urine Protein NEGATIVE (NEG); Urine pH 6.5 (5.0-7.0)
--- NOTE | 2019-02-10 03:54 | HP ---
Date of Admission: 02/09/2019 Chief Complaint: Epigastric abdominal pain. Primary Care Physician: Dr. Stevens. History Of Present Illness: The patient is a 58-year-old female with past medical history of diabetes and major depressive disorder, who was in her usual state of health until day of admission when the patient was at work and ate some tatertots with chili and has had sudden onset of epigastric abdominal pain radiating to the back. The patient denies any significant nausea, vomiting, diaphoresis, palpitations, fever, chills. No ill contacts. No travel outside the country. The patient did not have any diarrhea or blood in the stool. The patient's symptoms were progressively worsening, constant, and moderate in intensity; therefore, she came into the ER for further evaluation. In the ER, her workup revealed normal WBC count. Her liver enzymes were normal. Ultrasound of the abdomen showed normal gallbladder and biliary tree. Ultrasound did show some fatty infiltration. The patient was given Protonix and Zantac, which helped to alleviate her symptoms. The patient was then referred for admission. When seen in the ER, she was awake, alert, oriented x3. Some mild distress. Past Medical History: Diabetes mellitus type 2, major depressive disorder. Past Surgical History: Gastric bypass in 2000, knee surgery, shoulder surgery, tonsillectomy, wisdom tooth removal. Social History: The patient is . 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 Denies any tobacco use or alcohol use. Independent in her activities of daily living. Allergies: MORPHINE, MAKES HER STOP BREATHING. Family History: Positive for heart disease in the mom, grandparents, as well as the dad. Father had [place] at the age of 42. Review of Systems: An 11-point system reviewed, negative except as per HPI. Physical Examination: Vital Signs: Blood pressure 126/74, pulse 80, respirations 16, temperature 98.1 , O2 99% on room air. BMI is 35.5. General: Awake, alert, oriented x3. Some mild distress due to pain. Obese female. HEENT: Normocephalic, atraumatic. PERRLA. EOMI. Moist mucous membranes. Oropharynx is clear. Conjunctivae are anicteric. Neck: Supple. No JVD. Trachea midline. CV: S1, S2. Regular rate and rhythm. Peripheral pulses are present. Respiratory: Moving air well bilaterally. No wheezing or stridor. No use of accessory muscles. Gastrointestinal: Abdomen is soft. Tenderness to palpation in the epigastric region. No rebound or guarding. Bowel sounds are positive. Extremities: No clubbing, cyanosis, or edema. No calf tenderness. Neuro: Cranial nerves 2 through 12 intact grossly. No focal neurological deficit. Speech is normal. Skin: No rashes. Normal skin turgor. Psych: Mood is okay. Affect is full. Insight and judgment are good. Laboratory Data: Sodium 142, potassium 3.9, chloride 107, CO2 27, BUN 9, creatinine 0.69, glucose 141, calcium 9, magnesium 2.3. Troponin less than 0.02. Lipase 107. Total bilirubin 0.2, AST 15, ALT 25, INR 0.9. WBC 6.5, H and H 11.3 and 36.2, MCV 67.4, MCH is 21, platelets 243. Abdominal ultrasound shows normal gallbladder. Biliary tree ultrasound, fatty infiltration of a partially imaged liver. CT scan of the aorta, dissection mode is still pending. Assessment And Plan: A 58-year-old female with, 1. Acute epigastric abdominal pain, may be secondary to anastomotic ulcer from gastric bypass versus atypical chest pain or gallbladder disease. We will start her on IV proton pump inhibitor and keep her on clear liquids. We will follow up on CT dissection to rule out aortic dissection. We will obtain serial cardiac enzymes to rule out acute coronary syndrome. Start on chest pain guidelines. 2. Diabetes mellitus type 2, non-insulin requiring, with hyperglycemia. We will continue on sliding scale insulin and monitor blood glucose levels. 3. Major depressive disorder, in remission, single episode, stable. 4. Obesity, body mass index 35.5, counseled. 5. Fatty liver disease. 6. Deep venous thrombosis prophylaxis with sequential compression devices. No chemical anticoagulation due to possible ulceration. 7. Microcytic anemia. The patient likely has chronic blood loss anemia. She will need an endoscopy and colonoscopy as an outpatient to rule out malignancy likely caused from bleeding ulcers. Plan: Admit patient to Med/Surg, place as observation. /THONG Voice ID: [id number] ALPESH
[2019-02-10 05:11] LABS: Absolute Lymphocytes (CBC) 2.2 K/uL (0.7-4.9); Basophils % 0.8 % (0-1.3); Eosinophils % 1.5 % (0-4.4); Hematocrit 33.9 % (36.0-45.0); Lymphocytes % 40.5 % (15.3-44.8); MPV 9.7 fL (7.6-11.3); Monocytes % 6.9 % (3.3-12.3); RBC Red Blood Cell Count 5.04 M/uL (3.86-4.86)
[2019-02-10 05:23] LABS: ALT/SGPT 23 U/L (12-78); AST/SGOT 11 U/L (15-37); Albumin 3.3 g/dL (3.4-5.0); Alkaline Phosphatase 74 U/L (45-117); BUN Blood Urea Nitrogen 8 mg/dL (7-18); Bicarbonate 30 mmol/L (21-32); Bilirubin Total 0.2 mg/dL (0.2-1.0); Glucose Level 156 mg/dL (74-106); HDL Cholesterol 40 mg/dL (40-60); LDL Cholesterol, Calculated 110 (<130); Potassium 4.1 mmol/L (3.5-5.1); Protein, Total 6.4 g/dL (6.4-8.2); Sodium Level 143 mmol/L (136-145)
[2019-02-10] MEDS: INSULIN -REGULAR HUMAN 50 UNIT/0.5 ML ML SQ SCH ×3 (06:00→12:00)
[2019-02-10] MEDS ORDERED: LISINOPRIL 10 MG TAB PO SCH (09:00)
[2019-02-10] MEDS ORDERED: ASPIRIN EC 81 MG TAB PO SCH (09:00)
[2019-02-10] MEDS: METOPROLOL TAR 50 MG TAB PO SCH (09:24)
[2019-02-10] MEDS: PANTOPRAZOLE 40 MG INJ IVP SCH (09:25)
--- NOTE | 2019-02-10 09:58 | EKG ---
Test Date: 2019-02-09 Test Time: 14:27:49 Structural Ironworker: JOSE MEASUREMENT RESULTS: Intervals: Rate: 78 WI: 152 QRSD: 78 QT: 368 QTc: 419 [place]: P: 34 WI: 152 QRS: 45 T: 41 INTERPRETIVE STATEMENTS: Normal sinus rhythm Normal ECG No previous ECG available for comparison Electronically Signed On 02-10-19 09:57:20 CDT by Matheus Fernandez
--- NOTE | 2019-02-10 10:12 | ECHO ---
HEIGHT: 5 ft 6 in WEIGHT: 2275 lb 15.999 oz DATE OF STUDY: 02/10/[address]: Alberto Cerna MD 2-DIMENSIONAL: YES M.MODE: YES DOPPLER: YES COLOR FLOW: YES TDS: NO PORTABLE: NO DEFINITY: NO BUBBLE STUDY: NO DIAGNOSIS: CHEST PAIN CARDIAC HISTORY: CATHERIZATION: NO SURGERY: NO PROSTHETIC VALVE: NO PACEMAKER: NO MEASUREMENTS (cm) DIASTOLIC (NORMALS) SYSTOLIC (NORMALS) IVSd 0.9 (0.6-1.2) LA Diam 3.4 (1.9-4.0) LVEF 73% LVIDd 4.4 (3.5-5.7) LVIDs 2.5 (2.0-3.5) %FS 42% LVPWd 0.9 (0.6-1.2) Ao Diam 2.8 (2.0-3.7) 2 DIMENSIONAL ASSESSMENT: RIGHT ATRIUM: NORMAL LEFT ATRIUM: NORMAL RIGHT VENTRICLE: NORMAL LEFT VENTRICLE: NORMAL TRICUSPID VALVE: NORMAL MITRAL VALVE: NORMAL PULMONIC VALVE: NORMAL AORTIC VALVE: NORMAL PERICARDIAL EFFUSION: NONE AORTIC ROOT: NORMAL LEFT VENTRICULAR WALL MOTION: NORMAL DOPPLER/COLOR FLOW: PHYSIOLOGIC TRICUSPID REGURGITATION. NORMAL RIGHT VENTRICULAR SYSOTLIC PRESSURE. COMMENTS: NORMAL 2D ECHOCARDIOGRAM WITH DOPPLER. TECHNOLOGIST: Sonia MADDEN
--- NOTE | 2019-02-10 14:10 | RAD REPORT ---
EXAM DESCRIPTION: RAD - Upper GI W/KUB - 02/10/2019 2:03 pm CLINICAL HISTORY: abd pain Abdominal pain COMPARISON: Abdomen Exam Limited dated 02/09/2019; Angio Aorta For Dissection dated 02/09/2019 FINDINGS: The patient was administered barium by mouth under fluoroscopic observation. Swallowing me chanism is normal. There is a normal contour in appearance to the esophagus. No intrinsic or extrinsi c esophageal lesion detected. Mild gastroesophageal reflux was seen. A small stomach cavity is detected. There is rapid emptying of barium through the small stomach cavit y into the small intestine, which is normal in appearance. Total fluoroscopy time 0.72 minutes. Eight fluoroscopic images were obtained. IMPRESSION: Unremarkable upper GI series status post gastric bypass procedure. Mild gastroesophageal reflux.
[2019-02-10] MEDS ORDERED: INSULIN -REGULAR HUMAN 50 UNIT/0.5 ML ML SQ SCH (16:30)
--- NOTE | 2019-02-10 17:09 | CON ---
Date of Consultation: 02/10/2019 Brief History Of Present Illness: The patient is a 58-year-old female with a history of Ro ux-en-Y gastric bypass, who presents with abdominal pain in the epigastric region that began approxim ately 1 day prior to her admission to the hospital, which was on 02/09/2019. She states that the sym ptoms radiated through to her back. The pain was described as essentially crampy. It was not aggrava ting or alleviating by any other issues. It was mild to moderate in the emergency room. However, af ter I saw her in consultation. She tells me she is completely pain-free during my examination. Past Medical History: Significant for depression, diabetes, morbid obesity. Past Surgical History: Knee surgery, right foot surgery, right shoulder surgery, tonsillectomy, and a Julianna-en-Y gastric bypass with Dr. Champagne. Allergies: TO MORPHINE. Home Medications: Zoloft and metformin. Social History: She denies smoking or recreational drug use. Review of Systems: A 10-point review of systems other than HPI, denies. Physical Examination: Vital Signs: At the time of my examination, her blood pressure 121/67, pulse is 70, respiratory rate 18, temperature 97.0. General: She is awake, alert, oriented. Psychiatric: She is appropriate and conversive. HEENT: She is normocephalic. Neck: Supple. No JVD. Chest: Normal expansion and excursion. Cardiovascular: Regular rate and rhythm. Pulmonary: Clear to auscultation bilaterally. Abdomen: Soft, nontender, nondistended. No rebound. No guarding. No focal peritonitis. Extremities: No clubbing, cyanosis, or edema. Skin: Warm and dry. Laboratory Data: Reveals a white blood count 5.4, hemoglobin 10.7, hematocrit 33.9, platelet count i s 187, PT 10.7. Her sodium is 143, potassium 4.1, chloride 109, carbon dioxide 30, BUN 8, creatinine 0.59, glucose is 156. Her magnesium was 2.3 on admission. Total bilirubin 0.2 on admission, AST 15 , ALT 25, alkaline phosphatase is 84. Her lipase is 107. UA was essentially negative she had imagin g performed, which included a chest x-ray officially read as no acute cardiopulmonary process. She a dditionally had an abdominal ultrasound performed, which officially read as normal gallbladder, bilia ry tree, fatty infiltration of a partially imaged liver. She additionally had a CT dissection protoc ol which is read as negative CT scan of the aorta. No acute or suspicious CT chest findings. Fatty infiltration of liver. No acute abdomen or pelvis findings. Assessment And Plan: This is a 58-year-old woman who comes with possible gastritis/enteritis, uncert ain etiology of the abdominal pain. I have recommended EGD, however, we do not have the scope capabl e of reaching the patient's residual stomach because of her previous Julianna-en-Y gastric bypass and as such I recommend the patient be managed nonoperatively at this time and have outpatient workup if she is able to tolerate diet as she is currently pain free. I have explained the risks, benefits, and a lternatives of the above stated plan with the patient. She agrees to proceed as indicated. THAI/THONG Voice ID: [id number] Report ID: [id number]
--- NOTE | 2019-02-10 23:30 | DS ---
Date of Discharge: 02/10/2019 Consultants: Dr. Kaiser, General Surgery. Procedures: Upper GI series, normal. Echocardiogram shows EF of 73%, physiologic tricuspid regurg. Discharge Diagnoses: 1.Acute epigastric abdominal pain, improved, likely secondary to peptic ulcer disease. 2.Diabetes mellitus, type 2, [id number], with hyperglycemia. 3.Major depressive disorder, in remission, single episode, stable. 4.Obesity, BMI 35.5. 5.Fatty liver disease. 6.Microcytic anemia, likely has pernicious anemia due to history of gastric bypass. We will need lo ng-term B12 shots and IV iron supplementation. Hospital Course: The patient is a 58-year-old female with past medical history of diabetes, comes in with epigastric abdominal pain after eating some tater tots with chili. The patient had sudden onse t of pain radiating to her back. She was worked up in the ER. She felt better with Protonix. CT ao rtic dissection was done, which was negative for aortic dissection. Ultrasound was done, showed norm al gallbladder. There was some fatty infiltration of the liver. Her pain was thought to be from eit her anastomotic ulcer or peptic ulcer disease. She was started on IV Protonix, which improved her pa in. Of note, she has been on NSAIDs regularly for chronic pain and osteoarthritis. She was counsele d regarding use of NSAIDs. She needs to completely stop NSAIDs, switch to Tylenol. There was no GI available. Dr. Kaiser with Surgery was consulted. Due to the nature of her Julianna-en-Y bypass, he wa s not able to scope the patient. The patient's symptoms resolved. She also had an upper GI series, which was normal. She was then cleared for discharge. I did contact Dr. Champagne, her original surge on, for the bypass. He was happy to see her as needed in his office. There is no emergent surgical issue at this time. Dr. Kaiser did not feel that this patient has an internal hernia as a complicat ion of her bypass surgery. She is pain free. Does not have any elevated white blood cell count. He r labs are normal. ACS was also ruled out due to her cardiac pain being masked as epigastric pain. Cardiac enzymes were negative. Echocardiogram showed normal EF. She did have physiologic tricuspid regurg. She was counseled regarding her fatty liver disease. She will need to alter her diet and ex ercise habits in order to avoid fulminant liver failure in the next 10-20 years from nonalcoholic fat ty liver disease. Regarding her anemia, she will need to see internal control specialist for workup of pernicious a nemia and to continue with vitamin B12 and supplemental iron or iron infusions. The patient will be given trial of Protonix 40 mg p.o. b.i.d. She understands that she needs an endoscopy to rule out ul cers and H pylori disease. Protonix is not a permanent drug that she needs to be on for life. This is a trial only until she has endoscopy and found to have ulcers. Followup: The patient to follow up with primary care physician in 2-3 days. Follow up with surgeon, Dr. Kaiser, in 2 weeks or with primary surgeon, Dr. Champagne in [place]. Follow up with GI in 2-4 w eeks for endoscopy. Return to ER for worsening condition. Diet: Diabetic. Activity: As tolerated. Physical Examination: General: Awake, alert, oriented x3, obese female. CV: S1, S2. No murmurs. Respiratory: Moving air well bilaterally. Abdomen: Soft, nontender, nondistended. Positive bowel sounds. Extremities: No clubbing, cyanosis, or edema. Neuro: Nonfocal. SA/MODL Voice ID: [id number] Report ID: [id number]
[2019-02-11] MEDS ORDERED: SERTRALINE HCL 100 MG TAB PO SCH (09:00)
== END 2019-02-10 16:10 | disposition home or self-care (01) ==
LOC: ER 14:10 → ERHOLD 17:50 → 2ND 20:05
PROVIDERS: ADMIT Family Medicine; ATTEND Family Medicine
DX: R10.13 Epigastric pain (principal); E11.65 Type 2 diabetes mellitus with hyperglycemia; F32.5 Major depressive disorder, single episode, in full remission; K76.0 Fatty (change of) liver, not elsewhere classified; D50.9 Iron deficiency anemia, unspecified; E66.9 Obesity, unspecified; Z68.35 Body mass index [BMI] 35.0-35.9, adult; R07.9 Chest pain, unspecified; K21.9 Gastro-esophageal reflux disease without esophagitis; Z79.84 Long term (current) use of oral hypoglycemic drugs; Z79.899 Other long term (current) drug therapy; Z98.84 Bariatric surgery status
CPT/HCPCS: 36415; 71045; 71275; 74175; 74241; 76705; 80048; 80053; 80061; 80076; 81003; 82962; 83690; 83735; 83880; 84484; 85025; 85610; 93005; 93306; 94760; 96361; 96374; 96375; 99285; C9113; G0378; J2405; J3010; J7030; Q9967

== ENCOUNTER 2019-10-10 23:45 | Observation (INO) | payer OTHER ==
--- OUTSIDE RECORDS SUMMARY | 2019-10-10 23:48 | XMS REPORT ---
:1960 [facility] Address [address] [place] [address] Dr. Mcdermott [address] [place] [id number] Care Team Providers Name Role Phone Unavailable Unavailable Unavailable Problems This patient has no known problems. Allergies, Adverse Reactions, Alerts This patient has no known allergies or adverse reactions. Medications This patient has no known medications.
[2019-10-11] MEDS ORDERED: ASPIRIN 81 MG CHEWABLE TABLET ONE (00:10)
[2019-10-11 00:51] LABS: Absolute Lymphocytes (CBC) 3.1 K/uL (0.7-4.9); Basophils % 0.9 % (0-1.3); Hematocrit 33.2 % (36.0-45.0); Lymphocytes % 40.2 % (15.3-44.8); MPV 10.2 fL (7.6-11.3); RBC Red Blood Cell Count 5.03 M/uL (3.86-4.86)
[2019-10-11 01:12] LABS: ALT/SGPT 21 U/L (12-78); AST/SGOT 13 U/L (15-37); Albumin 3.6 g/dL (3.4-5.0); Alkaline Phosphatase 82 U/L (45-117); BUN Blood Urea Nitrogen 12 mg/dL (7-18); Bicarbonate 23 mmol/L (21-32); Bilirubin Direct < 0.1 mg/dL (0-0.2); Bilirubin Total 0.2 mg/dL (0.2-1.0); Glucose Level 154 mg/dL (74-106); Magnesium 2.1 mg/dL (1.8-2.4); NT PRO-BNP 29 pg/mL (<125); Potassium 3.8 mmol/L (3.5-5.1); Protein, Total 6.9 g/dL (6.4-8.2); Sodium Level 137 mmol/L (136-145); Troponin (Emerg Dept Use Only) < 0.02 ng/mL (0.0-0.045)
--- NOTE | 2019-10-11 01:27 | ER ---
Nurse's Notes [facility] Name: Estephanie Wasserman Age: 59 yrs Sex: Female : 1960 Arrival Date: 10/10/2019 Time: 23:46 Bed 16 Private MD: Diagnosis: Chest pain, unspecified Presentation: 10/09 23:45 Chief complaint: EMS states: Chest pain that began prior to calling EMS, states pain to lp1 epigastric area radiating to back; Per EMS,patient was initially tachycardic; Chest pain has now resolved on arrival to ED, pain rated 1/10; Per EMS, EKG sinus rhythm. 23:45 Coronavirus screen: The patient has NOT traveled to a country currently being monitored lp1 by the [facility] within the last 14 days. The patient has NOT had contact with any known and/or suspected case of coronavirus. Ebola Screen: No symptoms or risks identified at this time. Initial Sepsis Screen: Does the patient meet any 2 criteria? No. Patient's initial sepsis screen is negative. Does the patient have a suspected source of infection? No. Patient's initial sepsis screen is negative. Risk Assessment: Do you want to hurt yourself or someone else? Patient reports no desire to harm self or others. Onset of symptoms was October 11, 2019. 23:45 Method Of Arrival: EMS: [facility] 23:45 Acuity: SAAR 3 lp1 23:45 Care prior to arrival: IV initiated. 20 GA, in the right forearm, Glucose check: 171. lp1 Historical: - Allergies: 10/10 00:37 Morphine; lp1 - Home Meds: 00:37 Zoloft 50 mg Oral tab once daily [Active]; lp1 - PMHx: 00:37 Depression; Diabetes - NIDDM; lp1 - PSHx: 00:37 Gastric Bypass; Tonsillectomy; lp1 - Immunization history:: Adult Immunizations up to date. - Social history:: Patient/guardian denies using alcohol, street drugs, The patient lives with family, Smoking status: Patient denies any tobacco usage or history of. - Family history:: not pertinent. Screenin:36 Abuse screen: Denies threats or abuse. Denies injuries from another. Nutritional lp1 screening: No deficits noted. Tuberculosis screening: No symptoms or risk factors identified. Fall Risk None identified. Assessment: 00:00 General: Appears in no apparent distress. Behavior is calm, cooperative, appropriate lp1 for age. Pain: Complains of pain in epigastric area Pain radiates to back Pain currently is 1 out of 10 on a pain scale. Quality of pain is described as crampy. Neuro: Level of Consciousness is awake, alert, obeys commands, Oriented to person, place, time, situation. Cardiovascular: Patient's skin is warm and dry. Respiratory: Respiratory effort is even, unlabored, Breath sounds are clear bilaterally. GI: Abdomen is non-distended. : No signs and/or symptoms were reported regarding the genitourinary system. EENT: No signs and/or symptoms were reported regarding the EENT system. Derm: Skin is pink, warm \T\ dry. Musculoskeletal: No deficits noted. 01:30 Reassessment: Patient appears in no apparent distress at this time. Patient is alert, lp1 oriented x 3, equal unlabored respirations, skin warm/dry/pink. Patient states aching pain 1/10 to epigastric area. Vital Signs: 10/09 23:45 BP 119 / 79; Pulse 82; Resp 18; Temp 98.1(O); Pulse Ox 99% on R/A; Weight 101.6 kg (R); lp1 Height 5 ft. 6 in. (167.64 cm); Pain 1/10; 10/10 00:36 BP 115 / 63 LA Sitting (auto/reg); Pulse 78 MON; Pulse Ox 98% on R/A; Pain 1/10; mb4 01:50 BP 111 / 94 RA Sitting (auto/reg); Pulse 78 MON; Pulse Ox 96% on R/A; mb4 10/09 23:45 Body Mass Index 36.15 (101.60 kg, 167.64 cm) lp1 ED Course: 10/09 23:46 Patient arrived in ED. ds1 23:49 Radha Meza MD is Attending Physician. ma2 10/10 00:00 Arm band placed on left wrist. lp1 00:04 Eveline Babin, KENTRELL is Primary Nurse. lp1 00:04 EKG done, by ED staff, reviewed by Radha Meza MD. lp1 00:20 Maintain EMS IV. Dressing intact. Good blood return noted. Site clean \T\ dry. Gauge \T\ mb 4 site: 20G right forearm. 00:20 Initial lab(s) drawn, by me, sent to lab. Flushed right forearm saline lock. mb4 00:22 XRAY Chest (1 view) In Process Unspecified. EDMS 00:35 Patient has correct armband on for positive identification. Bed in low position. Call mb4 light in reach. Side rails up X 1. traffic monitor specialist on. Pulse ox on. NIBP on. 00:36 Triage completed. lp1 01:25 Karan Woods MD is Hospitalizing Provider. ma2 01:25 IV without good blood return, IV discontinued, bleeding controlled, Pressure dressing mb4 applied. 01:30 Inserted saline lock: 22 gauge in left antecubital area, using aseptic technique. Blood mb4 collected. 01:35 Lab(s) recollected, by me, sent to lab. mb4 01:41 Bed in low position. Call light in reach. traffic monitor specialist on. Pulse ox on. NIBP on. mb4 01:49 No provider procedures requiring assistance completed. Patient admitted, IV remains in lp1 place. Administered Medications: 00:08 Drug: Aspirin Chewable Tablet 324 mg Route: PO; lp1 01:42 Follow up: Response: No adverse reaction lp1 Outcome: 01:26 Decision to Hospitalize by Provider. ma2 01:49 Condition: stable lp1 01:49 Instructed on the need for admit. 01:52 Admitted to Tele accompanied by tech, via wheelchair, room 431, with chart, Report lp1 called to KENTRELL Mo 02:20 Patient left the ED. lp1 Signatures: Dispatcher [employer] [facility] Henna Leon 1 Eveline Bbain RN RN lp1 Radha Meza MD MD ma2 Elizabeth Limon mb4
--- NOTE | 2019-10-11 01:27 | EDPHYS ---
Physician Documentation [facility] Name: Estephanie Wasserman Age: 59 yrs Sex: Female : 1960 Arrival Date: 10/10/2019 Time: 23:46 Bed 16 Private MD: ED Physician Radha Meza HPI: 10/09 23:58 This 59 yrs old Female presents to ER via Unassigned with complaints of chest ma2 pain. 23:58 The patient or guardian reports chest pain that is located primarily in the substernal ma2 area. Onset: gradually, 1 hour(s) ago. Associated signs and symptoms: Pertinent negatives: cough, headache, lower extremity swelling, nausea. Severity of pain: At its worst the pain was mild in the emergency department the pain has resolved. Historical: - Allergies: 10/10 00:37 Morphine; lp1 - Home Meds: 00:37 Zoloft 50 mg Oral tab once daily [Active]; lp1 - PMHx: 00:37 Depression; Diabetes - NIDDM; lp1 - PSHx: 00:37 Gastric Bypass; Tonsillectomy; lp1 - Immunization history:: Adult Immunizations up to date. - Social history:: Patient/guardian denies using alcohol, street drugs, The patient lives with family, Smoking status: Patient denies any tobacco usage or history of. - Family history:: not pertinent. ROS: 10/09 23:58 Constitutional: Negative for fever, chills, and weight loss. ma2 All other systems are negative. Exam: 23:58 Constitutional: This is a well developed, well nourished patient who is awake, alert, ma2 and in no acute distress. Neck: Trachea midline, no thyromegaly or masses palpated, and no cervical lymphadenopathy. Supple, full range of motion without nuchal rigidity, or vertebral point tenderness. No Meningismus. Chest/axilla: Normal chest wall appearance and motion. Nontender with no deformity. No lesions are appreciated. Cardiovascular: Regular rate and rhythm with a normal S1 and S2. No gallops, murmurs, or rubs. Normal PMI, no JVD. No pulse deficits. Respiratory: Lungs have equal breath sounds bilaterally, clear to auscultation and percussion. No rales, rhonchi or wheezes noted. No increased work of breathing, no retractions or nasal flaring. Abdomen/GI: Soft, non-tender, with normal bowel sounds. No distension or tympany. No guarding or rebound. No evidence of tenderness throughout. MS/ Extremity: Pulses equal, no cyanosis. Neurovascular intact. Full, normal range of motion. Neuro: Awake and alert, GCS 15, oriented to person, place, time, and situation. Cranial nerves II-XII grossly intact. Motor strength 5/5 in all extremities. Sensory grossly intact. Cerebellar exam normal. Normal gait. Vital Signs: 23:45 BP 119 / 79; Pulse 82; Resp 18; Temp 98.1(O); Pulse Ox 99% on R/A; Weight 101.6 kg (R); lp1 Height 5 ft. 6 in. (167.64 cm); Pain 08/13; 10/10 00:36 BP 115 / 63 LA Sitting (auto/reg); Pulse 78 MON; Pulse Ox 98% on R/A; Pain 08/13; mb4 01:50 BP 111 / 94 RA Sitting (auto/reg); Pulse 78 MON; Pulse Ox 96% on R/A; mb4 10/09 23:45 Body Mass Index 36.15 (101.60 kg, 167.64 cm) lp1 MDM: 10/09 23:49 Patient medically screened. ma2 23:58 Differential diagnosis: abnormal EKG, gastroesophageal reflux disease (GERD), pleurisy, ma2 stable angina, unstable angina. HEART Score: History: Moderately Suspicious (1), ECG: Normal (0), Age: > 45 and < 65 years (1), Risk Factors: 1 or 2 risk factors (1), Troponin: Total Score = 2. The patient was given aspirin in the Emergency Department. RIKY Risk Score: TOTAL SCORE =. Data reviewed: vital signs, nurses notes. Counseling: I had a detailed discussion with the patient and/or guardian regarding: the historical points, exam findings, and any diagnostic results supporting the discharge/admit diagnosis, the presence of at least one elevated blood pressure reading (>120/80) during this emergency department visit, the need for further work-up and treatment in the hospital. 10/09 23:56 Order name: Basic Metabolic Panel; Complete Time: 01:22 ma2 10/09 23:56 Order name: CBC with Diff ma2 10/09 23:56 Order name: LFT's; Complete Time: 01:22 ma2 10/09 23:56 Order name: Magnesium; Complete Time: 01:22 ma2 10/09 23:56 Order name: NT PRO-BNP; Complete Time: 01:22 ma2 10/09 23:56 Order name: PT-INR vt2 10/09 23:56 Order name: Troponin (emerg Dept Use Only); Complete Time: 01:22 ma2 10/10 00:53 Order name: CBC Smear Scan EDMS 10/10 01:35 Order name: Comprehensive Metabolic Panel EDMS 10/10 01:35 Order name: Comprehensive Metabolic Panel EDMS 10/10 01:35 Order name: Lipid Profile EDMS 10/10 01:35 Order name: Lipid Profile EDMS 10/10 01:35 Order name: Troponin I EDMS 10/10 01:35 Order name: Troponin I EDMS 10/09 23:56 Order name: XRAY Chest (1 view) vt2 10/09 23:56 Order name: EKG; Complete Time: 23:58 vt2 10/09 23:56 Order name: Cardiac monitoring; Complete Time: 00:05 ma2 10/09 23:56 Order name: EKG - Nurse/Tech; Complete Time: 00:05 vt2 10/09 23:56 Order name: IV Saline Lock; Complete Time: 00:05 vt2 10/09 23:56 Order name: Labs collected and sent; Complete Time: 00:39 ma2 10/09 23:56 Order name: O2 Per Protocol; Complete Time: 00:05 vt2 10/09 23:56 Order name: O2 Sat Monitoring; Complete Time: 00:05 ma2 10/10 01:35 Order name: Troponin I EDMS 10/10 01:38 Order name: CONS Pharmacy Consult EDMS 10/10 01:38 Order name: Consistent Carb (ADA) 1800 Reji EDMS 10/10 01:38 Order name: CBC with Automated Diff EDMS 10/10 01:38 Order name: CBC with Automated Diff EDMS 10/10 01:40 Order name: Magnesium EDMS Administered Medications: 10/10 00:08 Drug: Aspirin Chewable Tablet 324 mg Route: PO; lp1 01:42 Follow up: Response: No adverse reaction lp1 Disposition: 10/11/19 01:26 Hospitalization ordered by Karan Woods for Observation. Preliminary diagnosis is Chest pain, unspecified. - Bed requested for Telemetry/MedSurg (observation). - Status is Observation. lp1 - Condition is Fair. - Problem is new. - Symptoms are resolved. Signatures: Dispatcher [employer] EDMS Eveline Babin RN RN lp1 Laverne Perales RN RN Radha Meza MD MD ma2 Corrections: (The following items were deleted from the chart) 01:45 01:26 Hospitalization Ordered by Karan Woods MD for Observation. Preliminary cg diagnosis is Chest pain, unspecified. Bed requested for Telemetry/MedSurg (observation). Status is Observation. Condition is Fair. Problem is new. Symptoms are resolved. ma2 :20 01:45 10/11/2019 01:26 Hospitalization Ordered by Karan Woods MD for Observation. lp1 Preliminary diagnosis is Chest pain, unspecified. Bed requested for Telemetry/MedSurg (observation). Status is Observation. Condition is Fair. Problem is new. Symptoms are resolved.
[2019-10-11] MEDS ORDERED: ACETAMINOPHEN 500 MG TAB PO PRN (01:32)
[2019-10-11] MEDS ORDERED: ONDANSETRON 4 MG/2 ML VIAL IV PRN (01:32)
[2019-10-11] MEDS ORDERED: MORPHINE 2 MG/ML SYR IV PRN (01:32)
[2019-10-11] MEDS ORDERED: ALBUTEROL 2.5 MG/3 ML NEB SOL NEB PRN ×2 (01:32→16:00)
[2019-10-11] MEDS ORDERED: HYDRALAZINE HCL 20 MG/ML VIAL IV PRN (01:35)
[2019-10-11] MEDS ORDERED: HYDROMORPHONE HCL 0.5 MG/0.5 ML INJ IV PRN (01:37)
[2019-10-11 02:03] LABS: Protime INR 0.9
[2019-10-11 02:07] LABS: Blood Morphology Comment NOTED (NOT SEEN); Hypochromasia 1+; Platelet Estimate ADEQ; Urine White Blood Cell Casts OK
[2019-10-11 02:42] VITALS: BMI 34.4
[2019-10-11 05:00] LABS: Magnesium 2.1 mg/dL (1.8-2.4); Troponin I < 0.02 ng/mL (0.0-0.045)
--- NOTE | 2019-10-11 07:29 | EKG ---
Test Date: 2019-10-10 Test Time: 22:59:27 Chemical Operator: LADI MEASUREMENT RESULTS: Intervals: Rate: 75 AR: 154 QRSD: 78 QT: 370 QTc: 413 [place]: P: 35 AR: 154 QRS: 40 T: 40 INTERPRETIVE STATEMENTS: Normal sinus rhythm normal ECG No previous ECG available for comparison Electronically Signed On 10-11-19 07:28:38 CDT by Matheus Fernandez
[2019-10-11] MEDS ORDERED: METFORMIN HCL 500 MG TAB PO SCH (08:00)
[2019-10-11] MEDS: INSULIN -REGULAR HUMAN 50 UNIT/0.5 ML ML SQ SCH ×2 (08:21→12:23)
[2019-10-11 08:25] VITALS: O2SAT 98
--- NOTE | 2019-10-11 08:26 | RAD REPORT ---
EXAM DESCRIPTION: RAD - Chest Single View - 10/11/2019 12:17 am CLINICAL HISTORY: CHEST PAIN Chest pain. COMPARISON: Chest Single View dated 02/09/2019; CHEST SINGLE VIEW dated 09/29/2013 FINDINGS: Portable technique limits examination quality. The lungs are grossly clear. The heart is mildly enlarged in size. No displaced fractures. IMPRESSION: No acute intrathoracic process suspected.
[2019-10-11] MEDS ORDERED: ENOXAPARIN 40 MG/0.4 ML SQ SCH (09:00)
[2019-10-11] MEDS ORDERED: NITROGLYCERIN 0.2 MG/HR (5 MG) PATCH TD SCH (09:00)
[2019-10-11] MEDS ORDERED: FAMOTIDINE 20 MG TAB PO SCH (09:00)
[2019-10-11] MEDS ORDERED: SERTRALINE HCL 50 MG TAB PO SCH (09:00)
[2019-10-11] MEDS ORDERED: SERTRALINE HCL 100 MG TAB PO SCH (09:00)
[2019-10-11 09:30] VITALS: BP 108/63
[2019-10-11 10:17] VITALS: TEMP 97.3
--- NOTE | 2019-10-11 12:36 | HP ---
Date of Admission: 10/11/2019 Presenting Complaint: Chest pain. History Of Present Illness: Ms. Maynor Mitchell is a 59-year-old female with past medical h istory of gastric bypass, diabetes mellitus type 2, previously on metformin but has stopped taking af ter she misplaced her medications 3 months ago when she was moving from her house, who presented to [facility] ED today because of chest pain. Pain is mostly in the epigastric area, radiating to both sides of the chest. She describes pain as also pleuritic and worse with deep breathing. She admits to some mild cough. She denies any sputum. She denies any chills or fever. Pain continued to persist until arrival in the ED. Pain slowly started to decrease after the patient received IV fluid, aspirin. S he did not receive any sublingual nitroglycerin. She states she has had pain in the past. She has h ad similar pain in the past. She had a stress test done 3 years ago that was reportedly negative. S he denies any history of pulmonary embolism in the past. She is currently still having mild pain sym ptoms now, although pain has decreased in intensity to 2/10. Past Medical History: Significant for depression, diabetes mellitus, non-insulin dependent, history of obesity status post gastric bypass. Past Surgical History: Gastric bypass as well as tonsillectomy. Home Medications: Zoloft 50 mg daily. Allergies: SUPPOSED TO BE ON METFORMIN BUT NOT TAKING 500 B.I.D. Allergies: MORPHINE. Social History: Patient resides in the community with her mom. She denies any alcohol, tobacco, or illicit drug use. Family History: No family history of coronary artery disease. Review of Systems: All systems reviewed x14 were negative. Physical Examination: Current Vitals: Blood pressure of 111/94, pulse of 78, respiratory rate of 18, O2 saturation of 96 o n room air, temp 98.1. General: Slightly overweight middle-aged female, calm, not in any distress. HEENT: Head atraumatic, normocephalic. Pupils equal, reactive to light. Extraocular motor movement s intact. Neck: No JVD. No carotid bruit. Respiratory: Good air entry. No crepitation. Cardiovascular: S1, S2. Rate and rhythm regular. No reproducible chest wall tenderness. GI: Abdomen full, soft, nontender. No epigastric tenderness. Bowel sounds positive. Rectal: Deferred. Extremities: No pedal edema. No calf tenderness. Neuro: Patient is alert, oriented. Cranial nerves 2 through 12 grossly intact. Laboratory Data: WBC 7.8, hemoglobin 10.3, platelets 199, neutrophils 51%. INR 0.9, potassium 3.8, magnesium 2.1. Glucose 149, creatinine 0.7, sodium 137. Rapid troponin less than 0.02. Repeat trop onin 4 hours later less than 0.02. AST, alkaline phosphatase, T-bilirubin normal. Chest x-ray reportedly normal, unable to urinate independently. Impression: 1.Atypical chest pain likely due to GERD, less likely acute coronary syndrome. 2.History of diabetes mellitus. 3.Depression. Plan: 1.We will admit patient for observation. Do serial set of cardiac enzymes. We will start patient o n b.i.d. Given low likelihood of acute coronary syndrome if patient is ruled out, patient can be safely discharged. Given negative stress test 3 years ago I do not think patient needs to bruce ve repeat imaging at this time. 2.Diabetes mellitus with insulin sliding scale. 3.Depression. Continue Zoloft 50 mg daily. 4.DVT prophylaxis. Subcutaneous Lovenox. Advanced Directives: Full code. Total Time Spent: Greater than 60 minutes. EO/MODL Voice ID: [id number]
--- NOTE | 2019-10-11 12:44 | P.PN ---
Subjective Date of Service: 10/11/19 Chief Complaint: Chest pain Subjective: Improving, Doing well This is a 59-year-old female that came in through the emergency department after having chest pain that started acutely yesterday afternoon. Initial cardiac enzymes were negative but due to her history of diabetes and age was admitted for further workup and rule out. <Abby Barryshua - Last Filed: 10/11/19 12:40> Date of Service: 10/12/19 <Alberto Cerna - Last Filed: 10/12/19 14:12> Review of Systems General: Unremarkable Eyes: Unremarkable ENT: Unremarkable Respiratory: Unremarkable Cardiovascular: Chest Pain Gastrointestinal: Unremarkable Genitourinary: Unremarkable Musculoskeletal: Unremarkable Integumentary: Unremarkable Neurological: Unremarkable Lymphatics: Unremarkable <Abby Barryshua - Last Filed: 10/11/19 12:40> Physical Examination - Vital Signs Temperature: 97.3 F Blood Pressure: 108/63 Pulse: 72 Respirations: 16 Pulse Ox (%): 98 - Physical Exam General: Alert, In no apparent distress, Oriented x3 HEENT: Normocephalic, PERRLA, Mucous membr. moist/pink Neck: Supple, 2+ carotid pulse no bruit, JVD not distended, No Thyromegaly Respiratory: Clear to auscultation bilaterally, Normal air movement Cardiovascular: No edema, Normal pulses, Regular rate/rhythm, Normal S1 S2, No gallops, No rubs, No murmurs Capillary refill: <2 Seconds Gastrointestinal: Normal bowel sounds, Soft and benign, Non-distended, No ascites, No tenderness, No masses, No rebound, No guarding Musculoskeletal: No clubbing, No swelling, No contractures, No erythema, No tenderness, No warmth Integumentary: No rashes, No breakdown, No significant lesion, No tenderness/ swelling, No erythema, No warmth, No cyanosis Neurological: Normal gait, Normal speech, Normal strength at 5/5 x4 extr, Normal tone, Sensation intact, Cranial nerves 3-12 intact, Normal reflexes 2+, Normal affect Lymphatics: No axilla or inguinal lymphadenopathy - Studies Laboratory Data (last 24 hrs) 10/11/19 01:30: PT 10.7, INR 0.90 10/11/19 00:20: WBC 7.8, Hgb 10.3 L, Hct 33.2 L, Plt Count 199 10/11/19 00:20: Sodium 137, Potassium 3.8, BUN 12, Creatinine 0.74, Glucose 154 H, Magnesium 2.1, Total Bilirubin 0.2, AST 13 L, ALT 21, Alkaline Phosphatase 82 Medications List Reviewed: Yes <Henrik Barry - Last Filed: 10/11/19 12:40> Assessment And Plan - Current Problems (Diagnosis) (1) Diabetes Status: Acute Qualifiers: Diabetes mellitus type: type 2 Diabetes mellitus ecommerce analyst insulin use: with ecommerce analyst use Diabetes mellitus complication status: without complication Qualified Code(s): E11.9 - Type 2 diabetes mellitus without complications; Z79.4 - smoking pipe maker (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 Patient has remained chest pain free since initial therapy yesterday afternoon. No acute changes overnight. Labs have remained unremarkable. Awaiting consult from cardiology as to whether they want to complete distress test or not. If they are comfortable with her going home will hopefully be discharged later today. Discharge Plan: Home Plan to discharge in: 24 Hours - Code Status/Comfort Care Code Status Assessed: Yes Code Status: Full Code Critical Care: No Time Spent Managing PTS Care (In Minutes): 35 <Henrik Barry - Last Filed: 10/11/19 12:40> Physician Review: Patient Assessed, Agree with Above Assessment and Plan Physician Review Additional Text: chart reviewed and case discussed with PA. <Alberto Cerna - Last Filed: 10/12/19 14:12>
--- NOTE | 2019-10-11 14:26 | P.DS ---
Admission Date: 10/11/19 Discharge Date: 10/11/19 Primary Care Provider: Dr. Stevens Reason for Admission: Chest pain - Problems (1) Diabetes Status: Chronic Qualifiers: Diabetes mellitus type: type 2 Diabetes mellitus superintendent container terminal insulin use: with superintendent container terminal use Diabetes mellitus complication status: without complication Qualified Code(s): E11.9 - Type 2 diabetes mellitus without complications; Z79.4 - care home (current) use of insulin (2) Chest pain Status: Acute Qualifiers: Chest pain type: unspecified Qualified Code(s): R07.9 - Chest pain, unspecified Brief History of Present Illness: 59 y/o Female that came to ED yesterday for acute onset chest pressure substernal with radiation to back. Was worked up and treated in ED with resolution of pain and no acute findings initially on labs. Was admitted to hospitalist for observation for continued chest pain r/o. Hospital Course: Patient has done well while admitted. Continues to be pain free and without any other symptoms. Patient had x3 troponins drawn all negative. ECG unremarkable. Patient had cardiology consult. Dr. Fernandez came and evaluated patient. No findings on his exam and was comfortable sending patient home without doing stress test at this time. Patient had medications at home and is seeing her PCP this Friday. Patient will be d/c'd home today for follow up with knowing that if something were to change that she should come back to ED immediately. <Henrik Barry - Last Filed: 10/11/19 14:20> Admission Date: 10/11/19 Discharge Date: 10/12/19 <Alberto Cerna - Last Filed: 10/12/19 14:14> Disposition: ROUTINE DISCHARGE Discharge Condition: GOOD Vital Signs/Physical Exam: Temp Pulse Resp BP Pulse Ox 97.3 F 72 16 108/63 98 10/11/19 12:44 10/11/19 12:44 10/11/19 12:44 10/11/19 12:44 10/11/19 12:44 General: Alert, In no apparent distress, Oriented x3 HEENT: Normocephalic, PERRLA, Mucous membr. moist/pink, EOMI Neck: Supple, 2+ carotid pulse no bruit, JVD not distended, No Thyromegaly Respiratory: Clear to auscultation bilaterally, Normal air movement Cardiovascular: No edema, Normal pulses, Regular rate/rhythm, Normal S1 S2, No gallops, No rubs, No murmurs Capillary refill: <2 Seconds Gastrointestinal: Normal bowel sounds, Soft and benign, Non-distended, No ascites, No tenderness, No masses, No rebound, No guarding Musculoskeletal: No clubbing, No swelling, No contractures, No erythema, No tenderness, No warmth Integumentary: No rashes, No breakdown, No significant lesion, No tenderness/ swelling, No erythema, No warmth, No cyanosis Neurological: Normal gait, Normal speech, Normal strength at 5/5 x4 extr, Normal tone, Sensation intact, Cranial nerves 3-12 intact, Normal reflexes 2+, Normal affect Lymphatics: No axilla or inguinal lymphadenopathy Laboratory Data at Discharge: WBC 7.8 K/uL (4.3-10.9) 10/11/19 00:20 Hgb 10.3 g/dL (12.0-15.0) L 10/11/19 00:20 Hct 33.2 % (36.0-45.0) L 10/11/19 00:20 Plt Count 199 K/uL (152-406) 10/11/19 00:20 PT 10.7 SECONDS (9.5-12.5) 10/11/19 01:30 INR 0.90 10/11/19 01:30 Sodium 137 mmol/L (136-145) 10/11/19 00:20 Potassium 3.8 mmol/L (3.5-5.1) 10/11/19 00:20 BUN 12 mg/dL (7-18) 10/11/19 00:20 Creatinine 0.74 mg/dL (0.55-1.3) 10/11/19 00:20 Glucose 154 mg/dL (74-106) H 10/11/19 00:20 Magnesium 2.1 mg/dL (1.8-2.4) 10/11/19 04:07 Total Bilirubin 0.2 mg/dL (0.2-1.0) 10/11/19 00:20 AST 13 U/L (15-37) L 10/11/19 00:20 ALT 21 U/L (12-78) 10/11/19 00:20 Alkaline Phosphatase 82 U/L (45-117) 10/11/19 00:20 Troponin I < 0.02 ng/mL (0.0-0.045) 10/11/19 08:05 <Henrik Barry - Last Filed: 10/11/19 14:20> Vital Signs/Physical Exam: Temp Pulse Resp BP Pulse Ox 97.3 F 72 16 108/63 98 10/11/19 12:44 10/11/19 12:44 10/11/19 12:44 10/11/19 12:44 10/11/19 12:44 Laboratory Data at Discharge: WBC 7.8 K/uL (4.3-10.9) 10/11/19 00:20 Hgb 10.3 g/dL (12.0-15.0) L 10/11/19 00:20 Hct 33.2 % (36.0-45.0) L 10/11/19 00:20 Plt Count 199 K/uL (152-406) 10/11/19 00:20 PT 10.7 SECONDS (9.5-12.5) 10/11/19 01:30 INR 0.90 10/11/19 01:30 Sodium 137 mmol/L (136-145) 10/11/19 00:20 Potassium 3.8 mmol/L (3.5-5.1) 10/11/19 00:20 BUN 12 mg/dL (7-18) 10/11/19 00:20 Creatinine 0.74 mg/dL (0.55-1.3) 10/11/19 00:20 Glucose 154 mg/dL (74-106) H 10/11/19 00:20 Magnesium 2.1 mg/dL (1.8-2.4) 10/11/19 04:07 Total Bilirubin 0.2 mg/dL (0.2-1.0) 10/11/19 00:20 AST 13 U/L (15-37) L 10/11/19 00:20 ALT 21 U/L (12-78) 10/11/19 00:20 Alkaline Phosphatase 82 U/L (45-117) 10/11/19 00:20 Troponin I < 0.02 ng/mL (0.0-0.045) 10/11/19 08:05 <Alberto Cerna - Last Filed: 03/10/20 14:14> Patient Discharge Instructions: No smoking. Limit Alcohol consumption. Drink plenty of fluids. Continue her diabetic, antidepressive, and refulx medications. To go back to ED if something were to change or worse. Follow up with PCP on Friday as scheduled Diet: ADA Activity: Ad aaron Time spent managing pt's care (in minutes): 35 <Henrik Barry - Last Filed: 10/11/19 14:20> Physician Review: Patient Assessed, Agree with Above Assessment and Plan (Case discussed w PA. Chart reviewed) <Alberto Cerna - Last Filed: 10/12/19 14:14> Home Medications: Sertraline HCl 50 mg PO DAILY 10/11/19 Followup: Mario Stevens MD [UNKNOWN] - (call office to schedule follow up appointment)
--- NOTE | 2019-10-11 16:17 | CON ---
History Of Present Illness: Mrs. Wasserman is 59. She came to the hospital with chest pain. The mani st pain was sudden onset at 11 p.m. yesterday, lasted a few hours. It got better without any particu lar treatment and since she has been in the hospital, EKGs and cardiac enzymes are normal. The patie nt has no previous history of myocardial infarction or stroke. She had morbid obesity, underwent Rou x-en-Y gastric bypass and around the year 2000 lost 94 pounds, gained about 20 of it back over the 20 years. Has borderline diabetes. Does not have hypertension. No history of vascular disease. No history of dyslipidemia. Outpatient medications have been sertraline only and I think metformin is a medicine she uses sometimes, although she may have been off it the past 3 months because of fail ure to refill the prescription. Her blood sugars have been 149 to 161 while here in the hospital. Social History: She uses no tobacco. Rare alcohol. No illegal drugs. Physical Examination: Vital Signs: 5 feet 6 inches, 213 pounds. HEENT: Normal. Lungs: Clear. Neck: Carotids no bruit. Heart: Within normal limits. Abdomen: Soft. Extremities: Normal. No cyanosis, clubbing, or edema. Laboratory Data: Electrocardiogram is normal. Troponins are all less than 0.02. I believe Mrs. Wasserman is safe enough to be discharged home and I believe she could undergo an outpa tient stress test. I encouraged her to call my office. We will schedule a nuclear stress test. If she has recurrent pain, I would be concerned that she may have pericarditis, although there are no physical findings, EKG findings presently. JOSI/THONG Voice ID: [id number] Report ID: [id number]
== END 2019-10-11 15:29 | disposition home or self-care (01) ==
LOC: ER 23:45 → 4TH 10-11 01:33
PROVIDERS: ADMIT Internal Medicine; ATTEND Family Medicine
DX: R07.89 Other chest pain (principal); E11.9 Type 2 diabetes mellitus without complications; F32.9 Major depressive disorder, single episode, unspecified; Z98.84 Bariatric surgery status; Z79.899 Other long term (current) drug therapy
CPT/HCPCS: 93005; 85025; 80048; 36415; 83735 ×2; 85610; 82947 ×3; 80076; 84484 ×3; 83880; 71045; 99285; J1650; G0378 ×2

== ENCOUNTER 2021-01-08 02:33 | Emergency (ER) | payer BC, OTHER ==
--- OUTSIDE RECORDS SUMMARY | 2021-01-08 02:36 | XMS REPORT | Continuity of Care Document ---
:1960 Author Organization [facility] t Address [address] [place] [address] Care Team Providers Name Role Phone Rodney IBARRA Attending Clinician Clinic, Neurology Continuity Attending Clinician Unavailabl e Problems This patient has no known problems. Allergies, Adverse Reactions, Alerts This patient has no known allergies or adverse reactions. Medications This patient has no known medications. Procedures This patient has no known procedures. Encounters Start End Encounter Admission Attending Care Care Encounter Source Date/Time Date/Time Type Type Clinicians Facility Department ID 2020-12-26 2020-12-26 Refill ESSENCE Stevesn [id number] 00:00:00 00:00:00 Mario Villagran [id number] [place] [id number] Professio [phone] nal 044 Building 2020-11-15 2020-11-15 Letter Clinic, [facility] [id number] 00:00:00 00:00:00 (Out) Neurology [facility] [id number] Continuity CLINICS [phone] [id number] 2020-11-09 2020-11-09 Office ESSENCE Stevens [id number] 08:55:04 09:10:04 Visit [facility] [id number] [place] [id number] Professio [phone] nal 044 Office Building One Results This patient has no known results.
[2021-01-08 03:47] LABS: Absolute Lymphocytes (CBC) 2.3 K/uL (0.7-4.9); Hematocrit 37.3 % (36.0-45.0); Lymphocytes % 38.8 % (15.3-44.8); MPV 10.1 fL (7.6-11.3); RBC Red Blood Cell Count 5.04 M/uL (3.86-4.86)
[2021-01-08 03:49] LABS: ALT/SGPT 24 U/L (12-78); AST/SGOT 16 U/L (15-37); Albumin 3.6 g/dL (3.4-5.0); Alkaline Phosphatase 78 U/L (45-117); BUN Blood Urea Nitrogen 10 mg/dL (7-18); Bicarbonate 24 mmol/L (21-32); Bilirubin Direct < 0.1 mg/dL (0-0.2); Bilirubin Total 0.3 mg/dL (0.2-1.0); Glucose Level 145 mg/dL (74-106); Lipase 84 U/L (73-393); Potassium 3.6 mmol/L (3.5-5.1); Protein, Total 7.1 g/dL (6.4-8.2); Sodium Level 141 mmol/L (136-145)
[2021-01-08] MEDS ORDERED: ONDANSETRON 4 MG/2 ML VIAL ONE (04:08)
[2021-01-08] MEDS ORDERED: NA CHLORIDE 0.9% 1,000 ML ONE (04:09)
[2021-01-08 04:37] LABS: Troponin (Emerg Dept Use Only) < 0.02 ng/mL (0.0-0.045)
--- NOTE | 2021-01-08 04:45 | EDPHYS ---
Physician Documentation [facility] Name: Estephanie Wasserman Age: 60 yrs Sex: Female : 1960 Arrival Date: 01/08/2021 Time: 02:36 Bed 7 Private MD: ED Physician Mario Patrick HPI: 01/08 03:53 This 60 yrs old Female presents to ER via EMS with unknown complaint. tw4 03:53 The patient presents to the emergency department with nausea, that is moderate, tw4 vomiting. Onset: The symptoms/episode began/occurred just prior to arrival, today. Possible causes: antibiotics. The symptoms are aggravated by nothing. The symptoms are alleviated by nothing. Associated signs and symptoms: The patient has no apparent associated signs or symptoms. Severity of symptoms: At their worst the symptoms were moderate in the emergency department the symptoms have resolved. The patient has not experienced similar symptoms in the past. Historical: - Allergies: 03:11 Morphine; lp1 - Home Meds: 03:11 Zoloft 50 mg Oral tab once daily [Active]; Metformin Oral [Active]; ozempic [Active]; lp1 - PMHx: 03:11 Depression; Diabetes - NIDDM; lp1 - PSHx: 03:11 None; lp1 - Immunization history:: Adult Immunizations up to date. - Social history:: Smoking status: Patient denies any tobacco usage or history of. ROS: 03:53 Constitutional: Negative for fever, chills, and weight loss, Eyes: Negative for injury, tw4 pain, redness, and discharge, Cardiovascular: Negative for chest pain, palpitations, and edema, Respiratory: Negative for shortness of breath, cough, wheezing, and pleuritic chest pain, Back: Negative for injury and pain, MS/Extremity: Negative for injury and deformity, Skin: Negative for injury, rash, and discoloration, Neuro: Negative for headache, weakness, numbness, tingling, and seizure. 03:53 Abdomen/GI: Positive for nausea and vomiting, nausea, vomiting, Negative for abdominal pain, diarrhea, constipation, abdominal cramps, abdominal distension, anorexia, dysphagia, hematemesis, black/tarry stool, rectal pain, rectal bleeding, bowel incontinence. Exam: 03:55 Constitutional: This is a well developed, well nourished patient who is awake, alert, tw4 and in no acute distress. Head/Face: Normocephalic, atraumatic. Chest/axilla: Normal chest wall appearance and motion. Nontender with no deformity. No lesions are appreciated. Cardiovascular: Regular rate and rhythm with a normal S1 and S2. No gallops, murmurs, or rubs. Normal PMI, no JVD. No pulse deficits. Respiratory: Lungs have equal breath sounds bilaterally, clear to auscultation and percussion. No rales, rhonchi or wheezes noted. No increased work of breathing, no retractions or nasal flaring. Abdomen/GI: Soft, non-tender, with normal bowel sounds. No distension or tympany. No guarding or rebound. No evidence of tenderness throughout. Back: No spinal tenderness. No costovertebral tenderness. Full range of motion. Skin: Warm, dry with normal turgor. Normal color with no rashes, no lesions, and no evidence of cellulitis. MS/ Extremity: Pulses equal, no cyanosis. Neurovascular intact. Full, normal range of motion. Neuro: Awake and alert, GCS 15, oriented to person, place, time, and situation. Cranial nerves II-XII grossly intact. Motor strength 5/5 in all extremities. Sensory grossly intact. Cerebellar exam normal. Normal gait. Vital Signs: 02:30 BP 134 / 67; Pulse 84; Resp 18; Temp 98.1(O); Pulse Ox 99% on R/A; Weight 94.35 kg (R); lp1 Height 5 ft. 5 in. (165.10 cm); Pain 0/10; 03:00 BP 129 / 63; Pulse 80; Resp 16; Pulse Ox 96% on R/A; lp1 03:45 BP 118 / 88; Pulse 84; Resp 14; Pulse Ox 98% on R/A; lp1 04:45 BP 125 / 67; Pulse 80; Resp 14; Pulse Ox 98% on R/A; lp1 06:10 BP 121 / 61; Pulse 78; Resp 18; Pulse Ox 98% on R/A; lp1 02:30 Body Mass Index 34.61 (94.35 kg, 165.10 cm) lp1 MDM: 03:44 Patient medically screened. tw4 01/08 02:37 Order name: Basic Metabolic Panel; Complete Time: 04:43 tw4 06/07 04:43 Interpretation: Normal except: GLUC 145; GFR 89. tw4 01/08 02:37 Order name: CBC with Diff; Complete Time: 04:43 tw4 01/08 04:43 Interpretation: Normal except: RBC 5.04; MCV 74.0; MCH 24.5. 01/08 02:37 Order name: Hepatic Function; Complete Time: 04:43 tw4 01/08 04:43 Interpretation: Normal except: A/G 1.0. 01/08 02:37 Order name: Lipase; Complete Time: 04:43 tw4 01/08 04:43 Interpretation: Within normal limits: LIP 84. tw4 01/08 04:04 Order name: Troponin (Emerg Dept Use Only); Complete Time: 04:43 EDMS 01/08 04:43 Interpretation: Within normal limits: TROPED < 0.02. 01/08 02:37 Order name: IV Saline Lock; Complete Time: 03:10 tw4 01/08 02:37 Order name: Labs collected and sent; Complete Time: 03:10 tw4 01/08 02:47 Order name: EKG; Complete Time: 02:48 tw4 01/08 03:10 Order name: EKG - Nurse/Tech; Complete Time: 03:10 lp1 EC:55 Rate is 76 beats/min. Rhythm is regular. QRS [place] is Normal. FL interval is normal. QRS tw4 interval is normal. QT interval is normal. No Q waves. T waves are Normal. No ST changes noted. Clinical impression: Normal ECG. Interpreted by me. Reviewed by me. Administered Medications: 03:58 Drug: NS 0.9% 1000 ml Route: IV; Rate: 1 bolus; Site: right antecubital; lp1 06:10 Follow up: IV Status: Completed infusion; IV Intake: 1000ml lp1 03:58 Drug: Zofran (Ondansetron) 4 mg Route: IVP; Site: right antecubital; lp1 05:19 Follow up: Response: No adverse reaction; Nausea is decreased lp1 04:58 Drug: TORadol (ketorolac) 30 mg Route: IVP; Site: right antecubital; jb4 05:46 Follow up: Response: Marked relief of symptoms lp1 Disposition: 06/07/21 04:45 Discharged to Home. Impression: Nausea with vomiting, unspecified, Other viral enteritis, Dehydration. - Condition is Stable. - Discharge Instructions: Nausea, Adult, Viral Gastroenteritis, Adult, George Diet. - Prescriptions for Zofran 4 mg Oral Tablet - take 1 tablet by ORAL route every 12 hours As needed; 6 tablet. - Medication Reconciliation Form, Thank You Letter, Antibiotic Education, Prescription Opioid Use form. - Follow up: Private Physician; When: Upon discharge from the Emergency Department; Reason: Recheck today's complaints, Continuance of care, Re-evaluation by your physician. - Problem is new. - Symptoms have improved. Signatures: Dispatcher [employer] [facility] Eveline Babin RN RN lp1 Flex Linder RN RN jb4 Mario Patrick MD MD tw4 Corrections: (The following items were deleted from the chart) 04:04 02:48 TROPONIN (EMERG DEPT USE ONLY)+C.LAB.BRZ ordered. [facility] 06:12 04:45 01/08/2021 04:45 Discharged to Home. Impression: Nausea with vomiting, lp1 unspecified; Other viral enteritis; Dehydration. Condition is Stable. Forms are Medication Reconciliation Form, Thank You Letter, Antibiotic Education, Prescription Opioid Use. Follow up: Private Physician; When: Upon discharge from the Emergency Department; Reason: Recheck today's complaints, Continuance of care, Re-evaluation by your physician. Problem is new. Symptoms have improved. tw4
--- NOTE | 2021-01-08 04:45 | ER ---
Nurse's Notes [facility] Name: Estephanie Wasserman Age: 60 yrs Sex: Female : 1960 Arrival Date: 01/08/2021 Time: 02:36 Bed 7 Private MD: Diagnosis: Nausea with vomiting, unspecified;Other viral enteritis;Dehydration Presentation: 01/08 02:30 Chief complaint: EMS states: Patient was at work when she suddenly became nauseated, lp1 vomited x1, witnesses report patient being diaphoretic; patient reports taking caffeine pill x1 at 0100. 02:30 Coronavirus screen: Client denies travel out of the [place] in the last 14 days. At this lp1 time, the client does not indicate any symptoms associated with coronavirus-19. Ebola Screen: No symptoms or risks identified at this time. Initial Sepsis Screen: Does the patient meet any 2 criteria? No. Patient's initial sepsis screen is negative. Does the patient have a suspected source of infection? No. Patient's initial sepsis screen is negative. Risk Assessment: Do you want to hurt yourself or someone else? Patient reports no desire to harm self or others. Onset of symptoms was January 08, 2021. 02:30 Method Of Arrival: EMS: [facility] lp1 02:30 Acuity: SARA 3 lp1 02:30 Care prior to arrival: IV initiated. 20 GA, in the right antecubital area, Glucose lp1 check: 167. Historical: - Allergies: 03:11 Morphine; lp1 - Home Meds: 03:11 Zoloft 50 mg Oral tab once daily [Active]; Metformin Oral [Active]; ozempic [Active]; lp1 - PMHx: 03:11 Depression; Diabetes - NIDDM; lp1 - PSHx: 03:11 None; lp1 - Immunization history:: Adult Immunizations up to date. - Social history:: Smoking status: Patient denies any tobacco usage or history of. Screenin:11 Abuse screen: Denies threats or abuse. Denies injuries from another. Nutritional lp1 screening: No deficits noted. Tuberculosis screening: No symptoms or risk factors identified. Fall Risk None identified. Assessment: 02:30 General: Appears in no apparent distress. Behavior is calm, cooperative. Pain: Denies lp1 pain. Neuro: Level of Consciousness is awake, alert, obeys commands, Oriented to person, place, time, situation. Cardiovascular: Patient's skin is warm and dry. Respiratory: Respiratory effort is even, unlabored, Respiratory pattern is regular, Breath sounds are clear bilaterally. GI: Abdomen is round non-distended, Bowel sounds present X 4 quads. Reports nausea. : No signs and/or symptoms were reported regarding the genitourinary system. EENT: No signs and/or symptoms were reported regarding the EENT system. Derm: Skin is pink, warm \T\ dry. Musculoskeletal: No deficits noted. 03:40 Reassessment: Patient is alert, oriented x 3, equal unlabored respirations, skin lp1 warm/dry/pink. Patient reports nausea appears to come in waves; denies any vomiting, abdominal pain. 04:45 Reassessment: Patient appears in no apparent distress at this time. Patient is alert, lp1 oriented x 3, equal unlabored respirations, skin warm/dry/pink. Patient states symptoms have improved. 06:10 Reassessment: Patient appears in no apparent distress at this time. Patient is alert, lp1 oriented x 3, equal unlabored respirations, skin warm/dry/pink. Patient denies pain at this time. Patient states feeling better. Patient states symptoms have improved. Vital Signs: 02:30 BP 134 / 67; Pulse 84; Resp 18; Temp 98.1(O); Pulse Ox 99% on R/A; Weight 94.35 kg (R); lp1 Height 5 ft. 5 in. (165.10 cm); Pain 0/10; 03:00 BP 129 / 63; Pulse 80; Resp 16; Pulse Ox 96% on R/A; lp1 03:45 BP 118 / 88; Pulse 84; Resp 14; Pulse Ox 98% on R/A; lp1 04:45 BP 125 / 67; Pulse 80; Resp 14; Pulse Ox 98% on R/A; lp1 06:10 BP 121 / 61; Pulse 78; Resp 18; Pulse Ox 98% on R/A; lp1 02:30 Body Mass Index 34.61 (94.35 kg, 165.10 cm) lp1 ED Course: 02:36 Patient arrived in ED. mw2 02:37 Mario Patrick MD is Attending Physician. tw4 02:45 Eveline Babin, RN is Primary Nurse. lp1 02:50 Maintain EMS IV. Dressing intact. Good blood return noted. Site clean \T\ dry. Gauge \T\ lp 1 site: 20g IV to R AC. 02:50 Initial lab(s) drawn, by me, sent to lab. lp1 03:07 Triage completed. lp1 03:12 Arm band placed on. lp1 03:12 Patient has correct armband on for positive identification. Bed in low position. Call lp1 light in reach. court recording monitor on. Pulse ox on. NIBP on. 05:18 No provider procedures requiring assistance completed. lp1 06:10 IV discontinued, No redness/swelling at site. Pressure dressing applied. lp1 Administered Medications: 03:58 Drug: NS 0.9% 1000 ml Route: IV; Rate: 1 bolus; Site: right antecubital; lp1 06:10 Follow up: IV Status: Completed infusion; IV Intake: 1000ml lp1 03:58 Drug: Zofran (Ondansetron) 4 mg Route: IVP; Site: right antecubital; lp1 05:19 Follow up: Response: No adverse reaction; Nausea is decreased lp1 04:58 Drug: TORadol (ketorolac) 30 mg Route: IVP; Site: right antecubital; jb4 05:46 Follow up: Response: Marked relief of symptoms lp1 Intake: 06:10 IV: 1000ml; Total: 1000ml. lp1 Outcome: 04:45 Discharge ordered by . tw4 06:11 Discharged to home ambulatory, with significant other. lp1 06:11 Condition: good 06:11 Discharge instructions given to patient, Instructed on discharge instructions, follow up and referral plans. medication usage, Demonstrated understanding of instructions, follow-up care, medications, Prescriptions given X 1. 06:12 Patient left the ED. lp1 Signatures: Eveline Babin, RN RN lp1 Flex Linder RN RN jb4 Mario Patrick MD MD tw4 Gigi Brown 2
[2021-01-08] MEDS ORDERED: KETOROLAC 30 MG/ML INJ ONE (05:14)
[2021-01-08 06:33] VITALS: O2SAT 98
[2021-01-08 06:36] VITALS: BP 121/61
== END 2021-01-08 06:12 | disposition home or self-care (01) ==
LOC: ER 02:33
DX: A08.4 Viral intestinal infection, unspecified (principal); E86.0 Dehydration; E11.9 Type 2 diabetes mellitus without complications; F32.9 Major depressive disorder, single episode, unspecified; Z79.84 Long term (current) use of oral hypoglycemic drugs
CPT/HCPCS: 93005; 85025; 80048; 36415; 80076; 84484; 83690; J7030; J2405; 96361; 96374; 96375; 99284

== ENCOUNTER 2022-04-17 16:37 | Emergency (ER) | payer BC ==
--- OUTSIDE RECORDS SUMMARY | 2022-04-17 16:40 | XMS REPORT | Continuity of Care Document ---
:1960 Author Organization [facility] t Address [address] [place] [place] [address] Care Team Providers Name Role Phone Mario Stevens MD Primary Care Physician Keturah Avila Attending Clinician KETURAH BARCENAS Attending Clinician Unavailable Doctor Unassigned, [place] Attending Clinician Unavailable Ellis Martines MD Attending Clinician Mario Stevens MD Attending Clinician [facility] Continuity Attending Clinician Unavail able Payers Payer Name Policy Type Policy Number Effective Date Expiration Date S ource Problems Condition Condition Condition Status Onset Resolution Last Treating Co mments Source Name Details Category Date Date Treatment Clinician Date Iron Iron Disease Active Univers deficiency deficiency 5-29 it y of anemia, anemia, 00:00: [place] unspecifie unspecifie 00 Me dical d iron d iron Branch deficiency deficiency anemia anemia type type Light Light Disease Active Univers headedness headedness 6-15 it y of 00:00: [place] 00 Medical Branch Fatigue, Fatigue, Disease Active Unive rs unspecifie unspecifie 6-15 it y of d type d type 00:00: [place] 00 Medical Branch Vitamin D Vitamin D Disease Active Uni vers deficiency deficiency 6-15 it y of 00:00: [place] 00 Medical Branch Depression Depression Disease Active 2014-08 U theodora 2-16 ity of 00:00: [place] 00 Medical Branch Allergies, Adverse Reactions, Alerts Allergy Allergy Status Severity Reaction(s) Onset Inactive Treating Comm ents Source Name Type Date Date Clinician Morphine Propensi Active Unknown - 2014-08 Uni vers ty to See comments 2-16 ity of adverse 00:00: [place] reaction 00 Medical s Branch MORPHINE DRUG Active Unknown-Cmnt 2014-08 Un [place] INGREDI 2-16 ity of 00:00: [place] 00 Medical Branch Social History Social Habit Start Date Stop Date Quantity Comments Source History SDOH University o f Alcohol Frequency [facility] edical Branch History SDOH University o f Alcohol Std [place] [facility] Drinks [facility] History SDOH University o f Alcohol Binge [place] [facility] Alcohol intake 2022-03-30 2022-03-30 Current drinker of Un iversity of 00:00:00 00:00:00 alcohol (finding) [facility] [place] [facility] [place] Tobacco use and 2022-03-30 2022-03-30 Smokeless tobacco Un iversity of exposure 00:00:00 00:00:00 non-user [facility] Exposure to 2022-03-19 2022-03-29 Not sure [facility] SARS-CoV-2 00:00:00 12:23:00 [facility] (event) [place] Alcohol Comment 2015-07-19 2015-07-19 occasionally Univers ity of 00:00:00 00:00:00 [facility] Sex Ass[birth year] At [birth year] Universit y of 00:00:00 00:00:00 [facility] Smoking Status Start Date Stop Date Source Never smoked tobacco [facility] Medications Ordered Filled Start Stop Current Ordering Indication Dosage Frequency Signature Comments Components Source Medication Medication Date Date Medication? Clinician (SIG) Name Name ketoconazol Yes [id number] TOPICALLY Univers e 2 % cream 03-30 once daily it y of 00:00: for 2 [place] 00 weeks Medical Branch fluconazole 2021- Yes [id number] 150mg Take 1 Univers (DIFLUCAN) 03-30-19 tablet by ity of 150 mg 00:00: 04:59 mouth [place] tablet 00 :00 weekly for Medical 4 doses. Branch SERTRALINE 2020-08 Yes [id number] TAKE 1 U nivers 100 mg 2-14 TABLET ity of tablet 00:00: DAILY [place] 00 Medical Branch SERTRALINE 2020-08 Yes [id number] TAKE 1 U nivers 100 mg 2-14 TABLET ity of tablet 00:00: DAILY Medical Branch SERTRALINE 2020-08 Yes [id number] TAKE 1 U nivers 100 mg 2-14 TABLET ity of tablet 00:00: DAILY Medical Branch SERTRALINE 2020-08 Yes [id number] TAKE 1 U nivers 100 mg 2-14 TABLET ity of tablet 00:00: DAILY [place] [facility] semaglutide 2020-08 Yes [id number] .5mg inject Univers (OZEMPIC) 1-01 0.375 mL ity of 0.25 mg [place] 00:[place] 0.[place] mg(2 00 skin Medical mg/1.5 mL) weekly. Branch PnIj metFORMIN 2020-08 Yes [id number] 1000mg Take 1 Univers 1,000 mg 1-01 tablet by ity of tablet 00:00: mouth 2 (two) Medical times Branch daily with meals. semaglutide 2020-08 Yes [id number] .5mg inject Univers (OZEMPIC) 1-01 0.375 mL ity of 0.25 mg [place] 00:[place] 0.5 mg(2 00 skin Medical mg/1.5 mL) weekly. Branch PnIj metFORMIN 2020-08 Yes [id number] 1000mg Take 1 Univers 1,000 mg 1-01 tablet by ity of tablet 00:00: mouth 2 (two) Medical times Branch daily with meals. semaglutide 2020-08 Yes [id number] .5mg inject Univers (OZEMPIC) 1-01 0.375 mL ity of 0.25 mg [place] 00:00[place] 0.5 mg(2 00 skin Medical mg/1.5 mL) weekly. Branch PnIj metFORMIN 2020-08 Yes [id number] 1000mg Take 1 Univers 1,000 mg 1-01 tablet by ity of tablet 00:00: mouth 2 (two) Medical times Branch daily with meals. semaglutide 2020-08 Yes [id number] .5mg inject Univers (OZEMPIC) 1-01 0.375 mL ity of 0.25 mg [place] 00:00[place] 0.5 mg(2 00 skin Medical mg/1.5 mL) weekly. Branch PnIj metFORMIN 2020-08 Yes [id number] 1000mg Take 1 Univers 1,000 mg 1-01 tablet by ity of tablet 00:00: mouth 2 (two) Medical times Branch daily with meals. diclofenac 2020-08 Yes [id number] 50mg Take 1 Un [place] 50 mg EC 0-15 tablet by ity of tablet 00:00: mouth 2 (two) Medical times Branch daily with meals. diclofenac 2020-08 Yes [id number] 50mg Take 1 Un [place] 50 mg EC 0-15 tablet by ity of tablet 00:00: mouth 2 (two) Medical times Branch daily with meals. diclofenac 2020-08 Yes [id number] 50mg Take 1 Un [place] 50 mg EC 0-15 tablet by ity of tablet 00:00: mouth 2 (two) Medical times Branch daily with meals. diclofenac 2020-08 Yes [id number] 50mg Take 1 Un [place] 50 mg EC 0-15 tablet by ity of tablet 00:00: mouth 2 (two) Medical times Branch daily with meals. ferrous Yes [id number] 325mg Take 1 Uni vers sulfate 325 5-29 tablet by ity of mg (65 mg 00:00: mouth 3 [place] iron) 00 (three) Medical tablet times Branch daily with meals. ferrous Yes [id number] 325mg Take 1 Uni vers sulfate 325 5-29 tablet by ity of mg (65 mg 00:00: mouth 3 [place] iron) 00 (three) Medical tablet times Branch daily with meals. ferrous Yes [id number] 325mg Take 1 Uni vers sulfate 325 5-29 tablet by ity of mg (65 mg 00:00: mouth 3 [place] iron) 00 (three) Medical tablet times Branch daily with meals. ferrous Yes [id number] 325mg Take 1 Uni vers sulfate 325 5-29 tablet by ity of mg (65 mg 00:00: mouth 3 [place] iron) 00 (three) Medical tablet times Branch daily with meals. Vital Signs Vital Name Observation Time Observation Value Comments Source Systolic blood 2022-03-30 14:10:00 119 mm[Hg] Univer sity of pressure [facility] Diastolic blood 2022-03-30 14:10:00 71 mm[Hg] Unive rsity of [facility] Heart rate 2022-03-30 14:10:00 87 /min Universi ty of [place] [facility] Body temperature 2022-03-30 14:10:00 36.72 Radha [facility] ersity of [place] [facility] Respiratory rate 2022-03-30 14:10:00 16 /min Univ ersity of [place] [facility] Body height 2022-03-30 14:10:00 166.4 cm Universi ty of [place] [facility] Body weight 2022-03-30 14:10:00 91.655 kg Universi ty of [place] [facility] BMI 2022-03-30 14:10:00 33.11 kg/m2 Universi ty of [place] [facility] Oxygen saturation in 2022-03-30 14:10:00 100 /min University of Arterial blood by [facility] Pulse oximetry Branch Systolic blood 2021-10-10 22:01:00 127 mm[Hg] Univer sity of pressure [place] [facility] [place] Diastolic blood 2021-10-10 22:01:00 76 mm[Hg] [facility] Heart rate 2021-10-10 22:01:00 88 /min Universi ty of [place] [facility] Body height 2021-10-10 22:01:00 165.1 cm Universi ty of [place] [facility] Body weight 2021-10-10 22:01:00 95.255 kg Universi ty [facility] [place] [facility] BMI 2021-10-10 22:01:00 34.95 kg/m2 Universi ty [facility] [place] [facility] Oxygen saturation in 2021-10-10 22:01:00 95 /min University of Arterial blood by [facility] Pulse oximetry Branch Procedures Procedure Date / Time Performing Clinician Source Performed ASSIGNMENT OF BENEFITS 2022-03-30 14:05:49 Doctor Unassigned, [facility] Name Medical Branch MEDICATION CORRESPONDENCE 2022-01-01 05:01:00 Doctor Unassigned, [facility] [place] [facility] Encounters Start End Encounter Admission Attending Care Care Encounter Source Date/Time Date/Time Type Type Clinicians Facility Department ID 2022-03-30 2022-03-30 Urgent Ovidio, [facility] [place] [id number] Univers 09:00:00 09:20:00 [facility] [email or web address] [id number] it y of [place] 4.2.7.2.686 José Miguel as PAYAM?BLEA [id number] Az jim MARCANOEY [address] [place] [facility] 2022-03-30 2022-03-30 Outpatient R OVIDIO, [facility] [id number] Univers 09:00:00 09:00:00 KETURAH ity of [facility] 2022-03-30 2022-03-30 Outpatient R [facility] [id number] Univers 09:00:00 09:00:00 [id number] ity of [facility] 2022-03-30 2022-03-30 Orders Doctor BECKHAM [id number] Univers 00:00:00 00:00:00 Only Unassigned, HUEY [id number] ity of [place] [facility] [id number] José Miguel as [phone] [address] 2022-01-01 2022-01-01 Orders Doctor BECKHAM [id number] Univers 00:00:00 00:00:00 Only Unassigned, HUEY [id number] ity of [place] [facility] [id number] José Miguel as [phone] [address] 2021-10-10 2021-10-10 [facility] [id number] Univers 15:40:00 16:00:00 Visit Ellis VILLAGRAN [id number] ity of [place]7.2.686 [place] [phone] Az jim CABALLERO 085 [facility] 2020-12-26 2020-12-26 [facility] [id number] 00:00:00 00:00:00 Mario Villagran [id number] [place] [id number] Professio [id number] [address] 2020-11-15 2020-11-15 Letter Clinic, [facility] UNIVERSIT [id number] 00:00:00 00:00:00 (Out) Neurology Y HEALTH [id number] Continuity CLINICS [id number] 2020-11-09 2020-11-09 Office Rodney [facility] [place] [id number] 08:55:04 09:10:04 Visit [facility] [id number] [id number] [place] [phone] nal 0[address] Office [address] One Results This patient has no known results.
[2022-04-17] MEDS ORDERED: HYDROCODONE/APAP 10/325 TAB ONE (17:51)
--- NOTE | 2022-04-17 18:42 | RAD REPORT ---
EXAM DESCRIPTION: CT - Head Brain Wo Cont - 04/17/2022 6:33 pm CLINICAL HISTORY: fall injury, nasal pain COMPARISON: Facial Bones W/ Mpr dated 04/17/2022 TECHNIQUE: All CT scans are performed using dose optimization technique as appropriate and may inclu de automated exposure control or mA/KV adjustment according to patient size. FINDINGS: No intracranial hemorrhage, hydrocephalus or extra-axial fluid collection.No areas of brai n edema or evidence of midline shift. Mild ethmoid air cell thickening. The calvarium is intact. IMPRESSION: No acute intracranial abnormality.
--- NOTE | 2022-04-17 18:43 | RAD REPORT ---
EXAM DESCRIPTION: CT - CTFB CLINICAL HISTORY: fall injury, nasal injury COMPARISON: No comparisons TECHNIQUE: Axial 2 mm thick images of the face were obtained with sagittal and coronal reconstructio n images. All CT scans are performed using dose optimization technique as appropriate and may include automated exposure control or mA/KV adjustment according to patient size. FINDINGS: Nondisplaced left nasal bone fracture.The mandible is intact. The globes and orbital contents are grossly unremarkable.Ethmoid air cell thickening. IMPRESSION: Nondisplaced left nasal bone fracture.
--- NOTE | 2022-04-17 19:04 | RAD REPORT ---
EXAM DESCRIPTION: CTChest Abd Pelvis Wo Con - 04/17/2022 6:35 pm CLINICAL HISTORY: fall injury, rib pain COMPARISON: Angio Aorta For Dissection dated 02/09/2019; Head Brain Wo Cont dated 04/17/2022 TECHNIQUE: CT of the chest, abdomen, and pelvis was performed. All CT scans are performed using dose optimization technique as appropriate and may include automated exposure control or mA/KV adjustment according to patient size. FINDINGS: Thorax: Chest Wall: No abnormal mass Lungs: No acute abnormality. Pleura: No effusions or pneumothorax. Marleen/Mediastinum: No lymphadenopathy. Circumferentially thickened distal esophagus. Aorta/Pulmonary Arteries: Unremarkable Heart: Normal size. Abdomen/Pelvis: Liver: No acute abnormality or suspicious lesions. Biliary: No biliary ductal dilatation. Stomach: Julianna-en-Y gastric bypass. Duodenum: No significant focal abnormality. Pancreas: No significant abnormality. Spleen: No significant abnormality. Adrenal: No suspicious lesions. Kidney/ureter: No hydronephrosis. No renal calculi. Left lower pole renal lesion likely has a thin se ptation. This was present on the prior CT from 2019 and is benign. Retroperitoneum: No retroperitoneal adenopathy. Vascular: No aneurysm. Bowel: No significant focal abnormality. Peritoneum: No ascites or free air. Bladder: Grossly unremarkable. Reproductive: No adnexal masses. Bones: Possible nondisplaced left anterior fifth rib fracture. Age-indeterminate right anterior seven th and eighth rib fractures. Other: n/a IMPRESSION: No definite acute findings within the chest, abdomen, or pelvis. Age indeterminate nondi splaced right anterior seventh and eighth and left anterior fifth rib fractures. No pneumothorax.
--- NOTE | 2022-04-17 19:07 | RAD REPORT ---
EXAM DESCRIPTION: RAD - Hand Left 3 View - 04/17/2022 6:51 pm CLINICAL HISTORY: Pain COMPARISON: Hand Left 2 View dated 05/05/2018 FINDINGS/IMPRESSION: No acute fracture. No malalignment. No significant focal degenerative changes.
--- NOTE | 2022-04-17 19:36 | ER ---
Nurse's Notes [facility] Name: Estephanie Wasserman Age: 61 yrs Sex: Female : 1960 Arrival Date: 04/17/2022 Time: 16:39 Bed 10 Private MD: Mario Stevens S Diagnosis: Contusion of left hand;Fracture of one rib, left side;Multiple fractures of ribs, right side-two ribs;Fracture of nasal bones;Fall on same level, unspecified Presentation: 04/17 16:50 Chief complaint: Patient states: walking dog when dog saw a cat and took off while pt vg1 still holding leash; pt landed on left arm and face and chest; appears to have abrasions to left arm and ANGEL knees. Also stated nose was bleeding on scene but has stopped since. 16:50 Care prior to arrival: IV initiated. 22 GA, in the left antecubital area. vg1 17:19 Coronavirus screen: Vaccine status: Patient reports being unvaccinated. Client denies vg1 travel out of the [place] in the last 14 days. Ebola Screen: Patient denies exposure to infectious person. Patient denies travel to an Ebola-affected area in the 21 days before illness onset. Initial Sepsis Screen: Does the patient meet any 2 criteria? No. Patient's initial sepsis screen is negative. Does the patient have a suspected source of infection? No. Patient's initial sepsis screen is negative. Risk Assessment: Do you want to hurt yourself or someone else? Patient reports no desire to harm self or others. Onset of symptoms was April 17, 2022. 17:19 Method Of Arrival: Wheelchair vg1 17:19 Acuity: SARA 3 vg1 Triage Assessment: 17:27 General: Appears uncomfortable, Behavior is calm, cooperative. Pain: Complains of pain vg1 in left arm, right knee, left side, nose Pain currently is 10 out of 10 on a pain scale. Respiratory: Airway is patent Respiratory effort is even, unlabored. Derm: appears to have abrasion to left arm and ANGEL knees. Historical: - Allergies: 17:24 Morphine (Respiratory distress); vg1 - Home Meds: 17:24 ozempic [Active]; Zoloft 50 mg Oral tab once daily [Active]; vg1 - PMHx: 17:24 Depression; Diabetes - NIDDM; vg1 - PSHx: 17:27 right knee; left knee; Gastric sleeve; Tonsillectomy; vg1 - Immunization history:: Client reports having NOT received the Covid vaccine. - Social history:: Smoking status: Patient denies any tobacco usage or history of. Screenin:29 Abuse screen: Denies threats or abuse. Nutritional screening: No deficits noted. bm7 Tuberculosis screening: No symptoms or risk factors identified. Fall Risk None identified. Primary Survey: 16:55 NO uncontrolled hemorrhage observed. A: The client is awake and alert. The airway is vg1 patent. The client is alert. Breathing/Chest: Spontaneous respiratory effort, equal unlabored respirations, breath sounds clear bilaterally, regular pattern, symmetrical chest rise and fall. Circulation: No external hemorrhage present. Regular and strong central pulse, skin warm/dry/normal color. Disability Client is alert. Exposure/Environment: All clothing and personal items were removed. Forensic evidence collection is not deemed to be indicated at this time. Items placed in patient belonging bag. There is no evidence of uncontrolled external bleeding. pt c/o left arm pain. 17:35 Reassessment Alertness and Airway: Awake and alert. The airway is patent. Airway Patent vg1 Breathing: Spontaneous respiratory effort, equal unlabored respirations, breath sounds clear bilaterally, regular pattern with symmetrical chest rise and fall. Respiratory effort Spontaneous Breath sounds Clear Respiratory pattern Regular Circulation: No external hemorrhage noted. Regular and strong central pulse, skin warm/dry/normal color. Disability: Alert. Secondary Survey: 16:55 HEENT: No deficits noted. Nose: pt stated after fall had a nose bleed; bleeding vg1 controlled at this time. Gastrointestinal: No deficits noted. : No signs and/or symptoms were reported regarding the genitourinary system. Musculoskeletal: Circulation, motion, and sensation intact. Swelling present in left hand. Assessment: 20:29 Reassessment: No changes from previously documented assessment. bm7 Vital Signs: 17:19 BP 125 / 79; Pulse 90; Resp 16; Temp 98.4(TE); Pulse Ox 97% on R/A; Weight 90.72 kg; vg1 Height 5 ft. 5 in. (165.10 cm); Pain 10/10; 20:29 BP 138 / 80; Pulse 78; Resp 16; Pulse Ox 100% on R/A; Pain 5/10; bm7 17:19 Body Mass Index 33.28 (90.72 kg, 165.10 cm) vg1 ED Course: 16:39 Patient arrived in ED. mr 16:39 Mario Stevens MD is Private Physician. mr 17:24 Triage completed. vg1 17:27 Arm band placed on. vg1 17:40 Kieth Koenig NP is PHCP. pm1 17:40 Rashad Romero MD is Attending Physician. pm1 18:35 CT Head Brain wo Cont In Process Unspecified. EDMS 18:35 CT Facial Bones W/O Con In Process Unspecified. EDMS 18:36 CT Chest Abdomen Pelvis W/O Contrast In Process Unspecified. EDMS 18:52 XRAY Hand LEFT 3 View In Process Unspecified. EDMS 19:03 Aditi Trivedi, RN is Primary Nurse. bm7 20:29 Patient has correct armband on for positive identification. bm7 20:29 No provider procedures requiring assistance completed. IV discontinued, intact, bm7 bleeding controlled, No redness/swelling at site. Pressure dressing applied. Administered Medications: 17:47 Drug: [place] (HYDROcodone-acetaminophen) 10 mg-325 mg 1 tabs Route: PO; vg1 19:17 Follow up: Response: Pain is decreased bm7 Medication: 20:29 VIS not applicable for this client. bm7 Outcome: 19:35 Discharge ordered by . pm1 20:29 Discharged to home via wheelchair, with family. bm7 20:29 Condition: good 20:29 Discharge instructions given to patient, family, Instructed on discharge instructions, follow up and referral plans. medication usage, Demonstrated understanding of instructions, follow-up care, medications, Prescriptions given X 1. 20:30 Patient left the ED. bm7 Signatures: Dispatcher [employer] Soledad Stock mr Keith Koenig, [employer]ICR[employer]Z [employer]ER pm1 Nithya Perales RN RN vg1 Aditi Trivedi, KENTRELL RN bm7 Corrections: (The following items were deleted from the chart) 17:24 16:50 Chief complaint: Patient states: fell while walking dog; appears to have swelling vg1 to bridge of nose vg1
--- NOTE | 2022-04-17 19:36 | EDPHYS ---
Physician Documentation [facility] Name: Estephanie Wasserman Age: 61 yrs Sex: Female : 1960 Arrival Date: 04/17/2022 Time: 16:39 Bed 10 Private MD: Mario Stevens S ED Physician Rashad Romero HPI: 04/17 17:47 This 61 yrs old Female presents to ER via Wheelchair with complaints of Fall Injury. pm1 17:47 Details of fall: The patient fell from an upright position, while walking, her dog. Her pm1 dog pulled the leash and pulled the patient down to the ground. Patient landed on bilateral knees and against with her left arm tucked against left rib area. Patient also hit her head with bloody nose. Negative for LOC and neck pain. Onset: The symptoms/episode began/occurred just prior to arrival. Associated injuries: The patient sustained nose, Pain, tenderness, left hand, Pain and swelling, Left rib cage, anterior aspect, Tenderness and pain. Severity of symptoms: in the emergency department the symptoms are unchanged. The patient has not experienced similar symptoms in the past. The patient has not recently seen a physician. Historical: - Allergies: 17:24 Morphine (Respiratory distress); vg1 - Home Meds: 17:24 ozempic [Active]; Zoloft 50 mg Oral tab once daily [Active]; vg1 - PMHx: 17:24 Depression; Diabetes - NIDDM; vg1 - PSHx: 17:27 right knee; left knee; Gastric sleeve; Tonsillectomy; vg1 - Immunization history:: Client reports having NOT received the Covid vaccine. - Social history:: Smoking status: Patient denies any tobacco usage or history of. ROS: 17:47 Constitutional: Negative for fever, chills, and weight loss, Cardiovascular: Negative pm1 for chest pain, palpitations, and edema, Respiratory: Negative for shortness of breath, cough, wheezing, and pleuritic chest pain, Abdomen/GI: Negative for abdominal pain, nausea, vomiting, diarrhea, and constipation. 17:47 Neuro: Negative for headache, weakness, numbness, tingling, and seizure. 17:47 MS/extremity: Positive for Mild abrasion to bilateral knees, pain to medial aspect of left hand, Negative for decreased range of motion, deformity. 17:47 All other systems are negative. Exam: 17:47 Constitutional: This is a well developed, well nourished patient who is awake, alert, pm1 and in no acute distress. Head/Face: Normocephalic, atraumatic. 17:47 Back: No spinal tenderness. No costovertebral tenderness. Full range of motion. Skin: Warm, dry with normal turgor. Normal color with no rashes, no lesions, and no evidence of cellulitis. MS/ Extremity: Pulses equal, no cyanosis. Neurovascular intact. Full, normal range of motion. 17:47 ENT: Nose: External nose: swelling is noted, bridge of nose, Nasal septum: is midline, no septal hematoma appreciated, Mouth: no acute changes, Lips: normal, moist, Oral mucosa: normal, pink and intact, moist, Gums: normal with healthy appearance. 17:47 Neck: Exam negative for acute changes, External neck: is normal, C-spine: no acute changes. 17:47 Chest/axilla: Palpation: tenderness, of the left lateral posterior chest, that totally reproduces the patient's complaints. 17:47 Cardiovascular: Exam negative for acute changes, Rate: normal, Rhythm: regular, Pulses: no pulse deficits are appreciated. 17:47 Respiratory: Exam negative for acute changes, respiratory distress, shortness of breath, Breath sounds: are clear throughout. 17:47 Abdomen/GI: Exam negative for acute changes, Inspection: abdomen appears normal, Palpation: abdomen is soft and non-tender. 17:47 Neuro: Exam negative for acute changes, Orientation: is normal, Mentation: is normal, Motor: is normal, moves all fours. Vital Signs: 17:19 BP 125 / 79; Pulse 90; Resp 16; Temp 98.4(TE); Pulse Ox 97% on R/A; Weight 90.72 kg; vg1 Height 5 ft. 5 in. (165.10 cm); Pain 10/10; 20:29 BP 138 / 80; Pulse 78; Resp 16; Pulse Ox 100% on R/A; Pain 5/10; bm7 17:19 Body Mass Index 33.28 (90.72 kg, 165.10 cm) vg1 MDM: 17:41 Patient medically screened. pm1 19:04 ED course: Reports pain improved with hydrocodone given in the ER. Informed patient she pm1 has nondisplaced nasal fracture. Negative for septal hematoma. 19:33 ED course: Patient offered additional pain medication prior to leaving. Reports current pm1 pain is 4 out of 10 with standing still but 12 out of 10 with movement. Patient reports she would rather take tramadol at home instead of taking 1 now. 19:33 Data reviewed: vital signs. Data interpreted: Pulse oximetry: on room air is 97 %. pm1 Interpretation: normal. Counseling: I had a detailed discussion with the patient and/or guardian regarding: the historical points, exam findings, and any diagnostic results supporting the discharge/admit diagnosis, radiology results, the need for outpatient follow up, to return to the emergency department if symptoms worsen or persist or if there are any questions or concerns that arise at home. 04/17 17:47 Order name: CT Head Brain wo Cont; Complete Time: 18:55 vg1 04/17 17:47 Order name: CT Facial Bones W/O Con; Complete Time: 18:55 vg1 04/17 17:47 Order name: CT Chest Abdomen Pelvis W/O Contrast; Complete Time: 19:16 vg1 04/17 17:47 Order name: XRAY Hand LEFT 3 View; Complete Time: 19:16 vg1 Administered Medications: 17:47 Drug: [place] (HYDROcodone-acetaminophen) 10 mg-325 mg 1 tabs Route: PO; vg1 19:17 Follow up: Response: Pain is decreased bm7 Disposition Summary: 04/17/22 19:35 Discharge Ordered Location: Home pm1 Problem: new pm1 Symptoms: have improved pm1 Condition: Stable pm1 Diagnosis - Contusion of left hand pm1 - Fracture of one rib, left side pm1 - Multiple fractures of ribs, right side - two ribs pm1 - Fracture of nasal bones pm1 - Fall on same level, unspecified pm1 Followup: pm1 - With: Emergency Department - When: As needed - Reason: Worsening of condition Followup: pm1 - With: Private Physician - When: 2 - 3 days - Reason: Recheck today's complaints, Continuance of care, Re-evaluation by your physician Discharge Instructions: - Discharge Summary Sheet pm1 - Abrasion pm1 - Hand Contusion pm1 - Rib Fracture pm1 - How to Use an Incentive Spirometer pm1 - Nasal Fracture pm1 Forms: - Medication Reconciliation Form pm1 - Thank You Letter pm1 - Antibiotic Education pm1 - Prescription Opioid Use pm1 Prescriptions: - Amoxicillin 500 mg Oral Capsule - take 1 capsule by ORAL route every 8 hours for 10 days; 30 tablet; Refills: 0, pm1 Product Selection Permitted - Tramadol 50 mg Oral Tablet - take 1 tablet by ORAL route every 8 hours as needed; 12 tablet; Refills: 0, pm1 Product Selection Permitted Addendum: 04/18/2022 20:32 Co-signature as Attending Physician, Rashad Romero MD. r n Signatures: Dispatcher [employer] EDCT Rashad Romero MD MD rn Keith Koenig, BUSINESS BANKING SALES ASSISTANT BUSINESS BANKING SALES ASSISTANT pm1 Nithya Perales RN RN vg1 Aditi Trivedi RN bm7
[2022-04-18 16:30] VITALS: TEMP 98.4
[2022-04-18 16:42] VITALS: BP 138/80; O2SAT 100
== END 2022-04-17 20:30 | disposition home or self-care (01) ==
LOC: ER 16:37
DX: S22.41XA Multiple fractures of ribs, right side, initial encounter for closed fracture (principal); S22.32XA Fracture of one rib, left side, initial encounter for closed fracture; S02.2XXA Fracture of nasal bones, initial encounter for closed fracture; S60.222A Contusion of left hand, initial encounter; W18.30XA Fall on same level, unspecified, initial encounter; E11.9 Type 2 diabetes mellitus without complications; F32.A Depression, unspecified; Z88.5 Allergy status to narcotic agent
CPT/HCPCS: 70450; 70486; 71250; 74176; 76377; 99283

== ENCOUNTER 2024-11-12 12:31 | Observation (INO) | payer BC ==
--- OUTSIDE RECORDS SUMMARY | 2024-11-12 12:36 | XMS REPORT | Continuity of Care Document ---
Author Name Unknown Address [address] [facility] [address] [place] [address] [facility] [place] Address [address] [facility]. 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 Name Role Phone MARIO PENA Primary Care Physician Unavailab HERMELINDA Carrion Attending Clinician Unavailable HERMELINDA YEAGER Attending Clinician Unavailable Mario Pena MD Attending Clinician [phone] MARIO PENA Attending Clinician Unavailable VIVI ORTIZ Attending Clinician Unavailable REGLA MCGRAW Attending Clinician Unavailable REGLA MCGRAW Attending Clinician Unavailable Regla Leija Attending Clinician [phone] Lab, Ang - Db Attending Clinician Unavailable Doctor Unassigned, [place] Attending Clinician U Marissa Manrique PA-C Attending Clinician + [phone] TREVOR ELIZALDE Attending Clinician Unavailable PETE SAAB Attending Clinician Unavailable PAT LONG Attending Clinician Unavail able PAT LONG Attending Clinician Unavail able Sima Neri Attending Clinician [phone] Lab, Ang - Db Attending Clinician Unavailable SIMA ELIZABTEH Attending Clinician Unavailable Mario Pena MD Attending Clinician [phone] Doctor Unassigned, [place] Attending Clinician U AMALIA Carmichael Attending Clinician Rashida RANDA Mehta Attending Clinician Unavaila QUENTIN Gilliam Attending Clinician Unavailab juan Foster MD, Amalia Faye Attending Clinician Quentin York MD Attending Clinician [phone] Marissa Middleton PA-C Attending Clinician [phone] CHAPINCITO NEWELL Attending Clinician Unavailable MARISSA MIDDLETON Attending Clinician Unavailable Unknown, Attending Attending Clinician Unavailab NERIS Cardoso Attending Clinician Unavailable Pao Avila Attending Clinician [phone] PAO NOLAN Attending Clinician Unavailable Ellis Shay MD Attending Clinician + [phone] ELLIS SHAY Attending Clinician Unavaila ELLIS Khoury Attending Clinician Unavaila ble 1, [facility] Sleep Lab Bed Attending Clinician Unavail able Only, [facility] Test Attending Clinician Unavailable Matilde Mark MD Attending Clinician [phone] MATILDE MARK Attending Clinician Unavailabl e Lab, [facility] Fam Pob I Attending Clinician Unavailab juan UNKNOWN, ATTENDING Attending Clinician Unavailab le Clinic, [facility] Neurology Continuity Attending Karen dyer Unavailable Omaghomi Luca GATICA Attending Clinician [phone] ROSITA YATES Attending Clinician Unavailable Payers Payer Name Policy Type Policy Number Effective Date Expirati on Date Source [employer] CHOICE POS II [id number] 2020 00:00:00 Problems Condition Name Condition Details Condition Category Status Onset Date Resolution Date Last Treatment Date Treating Clinician Comments Source Attention deficit disorder (ADD) without hyperactiv ity Attention deficit disorder (ADD) without hyperactiv ity Disease Active 09-08 00:00: 00 [facility] Iron deficiency anemia, unspecifie d iron deficiency anemia type Iron deficiency anemia, unspecifie d iron deficiency anemia type Disease Active 12-30 00:00: 00 [facility] Light headedness Light headedness Disease Active 01-16 00:00: 00 [facility] Fatigue, unspecifie d type Fatigue, unspecifie d type Disease Active 01-16 00:00: 00 [facility] Vitamin D deficiency Vitamin D deficiency Disease Active 01-16 00:00: 00 [facility] Depression Depression Disease Active 2014-08 00:00: 00 [facility] Uncontroll ed type 2 diabetes mellitus without complicati on, without long-term current use of insulin Uncontroll ed type 2 diabetes mellitus without complicati on, without long-term current use of insulin Disease Resolve d 01-16 00:00: 00 2020-11-09 00:00:00 2020-11-09 09:10:46 [facility] Low ferritin Low ferritin Disease Resolve d 01-16 00:00: 00 2017-12-30 00:00:00 2017-12-30 19:53:25 [facility] Allergies, Adverse Reactions, Alerts Allergy Name Allergy Type Status Severity Reaction(s) Onset Date Inactive Date Treating Clinician Comments Source Morphine Propensi ty to adverse reaction s Active Unknown - See comments 2014-08 00:00: 00 [facility] MORPHINE DRUG INGREDI Active High Unknown-Cmnt 2014-08 00:00: 00 [facility] Morphine Propensi ty to adverse reaction s to drug Active Unknown - See comments 2014-08 00:00: 00 Stops breathing [facility] Social History Social Habit Start Date Stop Date Quantity Comments Source History SDOH Alcohol Frequency [facility] History SDOH Alcohol Std Drinks [facility] History SDOH Alcohol Binge [facility] Gender identity [facility] Alcoholic beverage intake 2024-11-11 00:00:00 2024-11-11 00:00:00 Current drinker of alcohol (finding) [facility] History of Social function 2024-11-11 00:00:00 2024-11-11 00:00:00 [facility] Alcohol intake 2023-11-04 00:00:00 2023-11-04 00:00:00 Current drinker of alcohol (finding) [facility] Exposure to SARS-CoV-2 (event) 2022-11-30 00:00:00 2022-12-10 09:03:00 Not sure [facility] Tobacco use and exposure 2022-03-30 00:00:00 2022-03-30 00:00:00 Smokeless tobacco non-user [facility] Alcohol Comment 2015-07-19 00:00:00 2015-07-19 00:00:00 occasionally [facility] Sex assigned at 1960 00:00:00 1960 00:00:00 [facility] Smoking Status Start Date Stop Date Source Never smoked tobacco [facility] Medications Ordered Medication Name Filled Medication Name Start Date Stop Date Current Medication? Ordering Clinician Indication Dosage Frequency Signature (SIG) Comments Components Source semaglutide (OZEMPIC) 0.25 mg or 0.5 mg (2 mg/3 mL) PnIj 11-11 00:00: 00 Yes [id number] .25mg inject 0.25 mg under the skin weekly. inject 0.5 mg under the skin weekly. [facility] insulin lispro (human) (HumaLOG U-100) injection 10 Units 10-27 03:15: 00 10-27 02:49 :00 No 10U 10 Units, Subcutaneo us, ONCE, 1 dose, On Fri10/26/24 at 2215, Routine [facility] NaCl 0.9% (NS) bolus infusion 1,000 mL 10-27 02:00: 00 10-27 03:37 :00 No 1000mL at 999 mL/hr, 1,000 mL, IV Infusion, ONCE, 1 dose, On Fri10/26/24 at 2100, PUJA [facility] ondansetron (ZOFRAN (PF)) injection 4 mg 10-27 01:15: 10-27 01:35 :00 No 4mg 4 mg, Slow IV Push, ONCE, 1 dose, On Fri10/26/24 at 2015, Administer over 2-5 Minutes, 2 mL [facility] lisdexamfet amine 40 mg capsule 3-25 00:00: 00 Yes [id number] 40mg Take 1 capsule by mouth every morning. [facility] ondansetron 4 mg disintegrat ing tablet 3-25 00:00: 00 Yes [id number] 4mg Take 1 tablet by mouth every 8 (eight) hours as needed for Nausea and Vomiting (N/V). [facility] meclizine 25 mg tablet 3-12 00:00: 00 Yes [id number] 25mg Take 1 tablet by mouth 2 (two) times daily as needed for Dizziness. [facility] lisdexamfet amine 40 mg capsule 1-23 00:00: 00 10-26 00:00 :00 No [id number] 40mg Take 1 capsule by mouth every morning. [facility] SERTraline 100 mg tablet 2023-08 2- 00:00: 00 Yes [id number] 100mg Take 1 tablet by mouth in the morning. [facility] lisdexamfet amine 40 mg capsule 2023-08 2-23 00:00: 00 08-26 00:00 :00 No [id number] 40mg Take 1 capsule by mouth every morning. [facility] lisdexamfet amine 40 mg capsule 2023-08 0-30 00:00: 00 07-23 00:00 :00 No [id number] 40mg Take 1 capsule by mouth every morning. [facility] lisdexamfet amine 40 mg capsule 0 9-16 00:00: 00 06-02 00:00 :00 No [id number] 40mg Take 1 capsule by mouth every morning. [facility] lisdexamfet amine 40 mg capsule 2023-0 8-12 00:00: 00 04-19 00:00 :00 No [id number] 40mg Take 1 capsule by mouth every morning. [facility] lisdexamfet amine 40 mg capsule 0 8-07 00:00: 00 03-12 00:00 :00 No [id number] 40mg Take 1 capsule by mouth every morning. [facility] meclizine 25 mg tablet 0 7-29 00:00: 00 Yes [id number] 25mg Take 1 tablet by mouth 2 (two) times daily as needed for Dizziness. [facility] lisdexamfet amine 40 mg capsule 0 6-24 00:00: 00 03-10 00:00 :00 No [id number] 40mg Take 1 capsule by mouth every morning. [facility] lisdexamfet amine 40 mg capsule 0 5-16 00:00: 00 01-25 00:00 :00 No [id number] 40mg Take 1 capsule by mouth every morning. [facility] lisdexamfet amine 40 mg capsule 4-22 00:00: 00 12-17 00:00 :00 No [id number] 40mg Take 1 capsule by mouth every morning. [facility] cefUROXime 500 mg tablet 4-02 00:00: 00 03-01 00:00 :00 No [id number] 500mg Take 1 tablet by mouth in the morning and 1 tablet in the evening. [facility] lisdexamfet amine 40 mg capsule 0 3-25 00:00: 00 11-23 00:00 :00 No [id number] 40mg Take 1 capsule by mouth every morning. [facility] lisdexamfet amine 40 mg capsule 0 2-29 00:00: 00 Yes [id number] 40mg Take 1 capsule by mouth every morning. [facility] lisdexamfet amine (VYVANSE) 30 mg capsule 0 2-14 00:00: 00 00:00 :00 No [id number] 30mg Take 1 capsule by mouth every morning. [facility] lisdexamfet amine (VYVANSE) 30 mg capsule 0 2-05 00:00: 00 Yes [id number] 30mg Take 1 capsule by mouth every morning. [facility] amoxicillin -clavulanat e (AUGMENTIN) 875-125 mg per tablet 0 2-05 00:00: 00 03-01 00:00 :00 No [id number] 1{tbl} Take 1 tablet by mouth in the morning and 1 tablet in the evening. [facility] SERTraline 100 mg tablet - 00:00: 00 07-26 00:00 :00 No [id number] 100mg Take 1 tablet by mouth in the morning. [facility] blood sugar diagnostic (ONETOUCH VERIO TEST STRIPS) strip 08-05 00:00: 00 Yes Use to test blood sugar 1 to 2 times daily [facility] lisdexamfet amine (VYVANSE) 30 mg capsule 2022-08- 00:00: 00 09-08 00:00 :00 No [id number] 30mg Take 1 capsule by mouth every morning. [facility] diphenoxyla te-atropine 2.5-0.025 mg tablet 2022-08 00:00: 00 03-01 00:00 :00 No [id number] 1{tbl} Take 1 tablet by mouth every 6 (six) hours as needed for Other (diarrhea) . [facility] proMETHazin e 25 mg tablet 2022-08 00:00: 00 03-01 00:00 :00 No [id number] 25mg Take 1 tablet by mouth every 4 (four) hours as needed for Other (nausea). [facility] OZEMPIC 0.25 mg or 0.5 mg (2 mg/3 mL) PnIj 8-11 00:00: 00 11-11 00:00 :00 No inject 0.5 mg under the skin weekly. [facility] dexamethaso ne sod phos PF injection 10 mg 12-10 15:30: 00 12-10 14:40 :00 No [id number] 10mg [facility] cetirizine 10 mg tablet 12-10 00:00: 00 11-11 00:00 :00 No [id number] 10mg Take 1 tablet by mouth in the morning. [facility] fluticasone propionate 50 mcg/actuati on nasal spray 12-10 00:00: 00 03-01 00:00 :00 No [id number] 2{spray } Use 2 Sprays in each nostril in the morning. [facility] benzonatate 200 mg capsule 12-10 00:00: 00 04-22 00:00 :00 No [id number] 200mg Take 1 capsule by mouth 3 (three) times daily as needed for Cough. [facility] SERTraline 100 mg tablet 08-08 00:00: 00 09-03 00:00 :00 No [id number] 100mg Take 1 tablet by mouth in the morning. [facility] semaglutide (OZEMPIC) 0.25 mg or 0.5 mg(2 mg/1.5 mL) PnIj 08-08 00:00: 00 04-22 00:00 :00 No [id number] .5mg inject 0.5 mg under the skin weekly. [facility] metFORMIN 1,000 mg tablet 08-08 00:00: 00 04-22 00:00 :00 No [id number] 1000mg Take 1 tablet by mouth in the morning and 1 tablet in the evening. Take with meals. [facility] SERTRALINE 100 mg tablet 2021-08 00:00: 00 08-08 00:00 :00 No [id number] TAKE 1 TABLET DAILY [facility] ketoconazol e 2 % cream 03-30 00:00: 00 04-22 00:00 :00 No [id number] TOPICALLY once daily for 2 weeks [facility] fluconazole (DIFLUCAN) 150 mg tablet 03-30 00:00: 00 04-22 04:59 :00 No [id number] 150mg Take 1 tablet by mouth weekly for 4 doses. [facility] SERTRALINE 100 mg tablet 2020-08 2-14 00:00: 00 06-12 00:00 :00 No [id number] TAKE 1 TABLET DAILY [facility] semaglutide (OZEMPIC) 0.25 mg or 0.5 mg(2 mg/1.5 mL) PnIj 2020-08 00:00: 00 08-08 00:00 :00 No [id number] .5mg inject 0.375 mL under the skin weekly. [facility] metFORMIN 1,000 mg tablet 2020-08 00:00: 00 08-08 00:00 :00 No [id number] 1000mg Take 1 tablet by mouth 2 (two) times daily with meals. [facility] diclofenac 50 mg EC tablet 2020-08 00:00: 00 08-08 00:00 :00 No [id number] 50mg Take 1 tablet by mouth 2 (two) times daily with meals. [facility] ferrous sulfate 325 mg (65 mg iron) tablet 12-30 00:00: 00 08-08 00:00 :00 No [id number] 325mg Take 1 tablet by mouth 3 (three) times daily with meals. [facility] Vital Signs Vital Name Observation Time Observation Value Comments S ource Systolic blood pressure 2024-11-11 12:23:00 121 mm[Hg] [facility] Diastolic blood pressure 2024-11-11 12:23:00 73 mm[Hg] [facility] Heart rate 2024-11-11 12:23:00 85 /min [facility] Body height 2024-11-11 12:23:00 165.1 cm [facility] Body weight 2024-11-11 12:23:00 87.862 kg [facility] BMI 2024-11-11 12:23:00 32.23 kg/m2 [facility] Oxygen saturation in Arterial blood by Pulse oximetry 2024-11-11 12:23:00 99 /min [facility] Systolic blood pressure 2024-10-27 04:00:00 97 mm[Hg] [facility] Diastolic blood pressure 2024-10-27 04:00:00 58 mm[Hg] [facility] Heart rate 2024-10-27 04:00:00 107 /min [facility] Body temperature 2024-10-27 04:00:00 37.61 Radha [facility] Respiratory rate 2024-10-27 04:00:00 18 /min [facility] Oxygen saturation in Arterial blood by Pulse oximetry 2024-10-27 04:00:00 97 /min [facility] Body height 2024-10-27 01:00:[address] [facility] Body weight 2024-10-27 01:00:[address] [facility] BMI 2024-10-27 01:00:00 32.45 kg/m2 [facility] Systolic blood pressure 2024-10-26 15:17:00 122 mm[Hg] [facility] Diastolic blood pressure 2024-10-26 15:17:00 82 mm[Hg] [facility] Heart rate 2024-10-26 15:17:00 102 /min [facility] Body height 2024-10-26 15:17:[address] [facility] Body weight 2024-10-26 15:17:00 88.678 kg [facility] BMI 2024-10-26 15:17:00 32.53 kg/m2 [facility] Oxygen saturation in Arterial blood by Pulse oximetry 2024-10-26 15:17:00 98 /min [facility] Systolic blood pressure 2024-03-01 20:34:00 119 mm[Hg] [facility] Diastolic blood pressure 2024-03-01 20:34:00 87 mm[Hg] [facility] Heart rate 2024-03-01 20:34:00 94 /min [facility] Body temperature 2024-03-01 20:34:00 36.67 Radha [facility] Body height 2024-03-01 20:34:[address] [facility] Body weight 2024-03-01 20:34:[address] [facility] BMI 2024-03-01 20:34:00 32.18 kg/m2 [facility] Oxygen saturation in Arterial blood by Pulse oximetry 2024-03-01 20:34:00 98 /min [facility] Systolic blood pressure 2023-11-04 14:55:00 138 mm[Hg] [facility] Diastolic blood pressure 2023-11-04 14:55:00 79 mm[Hg] [facility] Heart rate 2023-11-04 14:55:00 91 /min [facility] Body height 2023-11-04 14:55:[address] [facility] Body weight 2023-11-04 14:55:[address] [facility] BMI 2023-11-04 14:55:00 34.55 kg/m2 [facility] Oxygen saturation in Arterial blood by Pulse oximetry 2023-11-04 14:55:00 98 /min [facility] Systolic blood pressure 2023-10-02 18:20:00 121 mm[Hg] [facility] Diastolic blood pressure 2023-10-02 18:20:00 71 mm[Hg] [facility] Heart rate 2023-10-02 18:20:00 91 /min [facility] Body height 2023-10-02 18:20:[address] [facility] Body weight 2023-10-02 18:20:00 95.754 kg [facility] BMI 2023-10-02 18:20:00 35.13 kg/m2 [facility] Oxygen saturation in Arterial blood by Pulse oximetry 2023-10-02 18:20:00 97 /min [facility] Systolic blood pressure 2023-09-08 18:39:00 123 mm[Hg] [facility] Diastolic blood pressure 2023-09-08 18:39:00 81 mm[Hg] [facility] Heart rate 2023-09-08 18:39:00 83 /min [facility] Body height 2023-09-08 18:39:[address] [facility] Body weight 2023-09-08 18:39:00 95.255 kg [facility] BMI 2023-09-08 18:39:00 34.95 kg/m2 [facility] Oxygen saturation in Arterial blood by Pulse oximetry 2023-09-08 18:39:00 99 /min [facility] Systolic blood pressure 2023-07-31 15:27:00 119 mm[Hg] [facility] Diastolic blood pressure 2023-07-31 15:27:00 78 mm[Hg] [facility] Heart rate 2023-07-31 15:27:00 86 /min [facility] Body height 2023-07-31 15:27:00 165.1 cm [facility] Body weight 2023-07-31 15:27:00 100.562 kg [facility] BMI 2023-07-31 15:27:00 36.89 kg/m2 [facility] Oxygen saturation in Arterial blood by Pulse oximetry 2023-07-31 15:27:00 97 /min [facility] Systolic blood pressure 2023-05-22 20:12:00 106 mm[Hg] [facility] Diastolic blood pressure 2023-05-22 20:12:00 73 mm[Hg] [facility] Heart rate 2023-05-22 20:11:00 93 /min [facility] Body temperature 2023-05-22 20:11:00 37.11 Radha [facility] Respiratory rate 2023-05-22 20:11:00 18 /min [facility] Body height 2023-05-22 20:11:[address] [facility] Body weight 2023-05-22 20:11:00 97.478 kg [facility] BMI 2023-05-22 20:11:00 35.76 kg/m2 [facility] Oxygen saturation in Arterial blood by Pulse oximetry 2023-05-22 20:11:00 97 /min [facility] Systolic blood pressure 2023-04-22 18:31:00 128 mm[Hg] [facility] Diastolic blood pressure 2023-04-22 18:31:00 72 mm[Hg] [facility] Heart rate 2023-04-22 18:31:00 81 /min [facility] Respiratory rate 2023-04-22 18:31:00 18 /min [facility] Body height 2023-04-22 18:31:[address] [facility] Body weight 2023-04-22 18:31:[address] [facility] BMI 2023-04-22 18:31:00 36.87 kg/m2 [facility] Oxygen saturation in Arterial blood by Pulse oximetry 2023-04-22 18:31:00 99 /min [facility] Systolic blood pressure 2023-03-31 21:32:00 132 mm[Hg] [facility] Diastolic blood pressure 2023-03-31 21:32:00 80 mm[Hg] [facility] Heart rate 2023-03-31 21:32:00 92 /min [facility] Body temperature 2023-03-31 21:32:00 37 Radha [facility] Respiratory rate 2023-03-31 21:32:00 18 /min [facility] Body weight 2023-03-31 21:32:00 97.977 kg [facility] BMI 2023-03-31 21:32:00 35.94 kg/m2 [facility] Oxygen saturation in Arterial blood by Pulse oximetry 2023-03-31 21:32:00 97 /min [facility] Systolic blood pressure 2022-12-10 14:19:00 123 mm[Hg] [facility] Diastolic blood pressure 2022-12-10 14:19:00 79 mm[Hg] [facility] Heart rate 2022-12-10 14:19:00 89 /min [facility] Body temperature 2022-12-10 14:19:00 37.17 Radha [facility] Respiratory rate 2022-12-10 14:19:00 17 /min [facility] Body height 2022-12-10 14:19:[address] [facility] Body weight 2022-12-10 14:19:[address] [facility] BMI 2022-12-10 14:19:00 34.36 kg/m2 [facility] Oxygen saturation in Arterial blood by Pulse oximetry 2022-12-10 14:19:00 96 /min [facility] Systolic blood pressure 2022-11-25 20:31:00 116 mm[Hg] [facility] Diastolic blood pressure 2022-11-25 20:31:00 68 mm[Hg] [facility] Heart rate 2022-11-25 20:31:00 80 /min Un[facility] Body temperature 2022-11-25 20:31:00 36.94 Radha [facility] Respiratory rate 2022-11-25 20:31:00 18 /min [facility] Body height 2022-11-25 20:31:[address] [facility] Body weight 2022-11-25 20:31:[address] [facility] BMI 2022-11-25 20:31:00 34.95 kg/m2 [facility] Oxygen saturation in Arterial blood by Pulse oximetry 2022-11-25 20:31:00 97 /min [facility] Systolic blood pressure 2022-11-11 18:57:00 116 mm[Hg] [facility] Diastolic blood pressure 2022-11-11 18:57:00 69 mm[Hg] [facility] Heart rate 2022-11-11 18:57:00 89 /min Un[facility] Body temperature 2022-11-11 18:57:00 36.39 Radha [facility] Respiratory rate 2022-11-11 18:57:00 16 /min [facility] Body height 2022-11-11 18:57:[address] [facility] Body weight 2022-11-11 18:57:[address] [facility] BMI 2022-11-11 18:57:00 34.71 [facility] O[facility] in Arterial blood by Pulse oximetry 2022-11-11 18:57:00 96 /min [facility] Systolic blood pressure 2022-11-04 16:39:00 105 mm[Hg] [facility] Diastolic blood pressure 2022-11-04 16:39:00 70 mm[Hg] [facility] Heart rate 2022-11-04 16:39:00 92 /min [facility] Body temperature 2022-11-04 16:39:00 36.94 Radha [facility] Body height 2022-11-04 16:39:00 165.1 cm [facility] Body weight 2022-11-04 16:39:00 95.255 kg [facility] BMI 2022-11-04 16:39:00 34.95 kg/m2 [facility] Oxygen saturation in Arterial blood by Pulse oximetry 2022-11-04 16:39:00 98 /min [facility] Systolic blood pressure 2022-08-08 18:54:00 109 mm[Hg] [facility] Diastolic blood pressure 2022-08-08 18:54:00 69 mm[Hg] [facility] Heart rate 2022-08-08 18:54:00 95 /min Un[facility] Body height 2022-08-08 18:54:00 166.4 cm [facility] Body weight 2022-08-08 18:54:00 90.719 kg [facility] BMI 2022-08-08 18:54:00 32.78 kg/m2 [facility] Oxygen saturation in Arterial blood by Pulse oximetry 2022-08-08 18:54:00 94 /min [facility] Systolic blood pressure 2022-03-30 14:10:00 119 mm[Hg] [facility] Diastolic blood pressure 2022-03-30 14:10:00 71 mm[Hg] [facility] Heart rate 2022-03-30 14:10:00 87 /min Unive [facility] Body temperature 2022-03-30 14:10:00 36.72 Radha [facility] Respiratory rate 2022-03-30 14:10:00 16 /min [facility] Body height 2022-03-30 14:10:00 166.4 cm [facility] Body weight 2022-03-30 14:10:00 91.655 kg [facility] BMI 2022-03-30 14:10:00 33.11 kg/m2 [facility] Oxygen saturation in Arterial blood by Pulse oximetry 2022-03-30 14:10:00 100 /min [facility] Systolic blood pressure 2021-10-10 22:01:00 127 mm[Hg] [facility] Diastolic blood pressure 2021-10-10 22:01:00 76 mm[Hg] [facility] Heart rate 2021-10-10 22:01:00 88 /min [facility] Body height 2021-10-10 22:01:00 165.1 cm [facility] Body weight 2021-10-10 22:01:00 95.255 kg [facility] BMI 2021-10-10 22:01:00 34.95 kg/m2 [facility] Oxygen saturation in Arterial blood by Pulse oximetry 2021-10-10 22:01:00 95 /min [facility] Procedures Procedure Date / Time Performed Performing Clinician Source POCT GLUCOSE (AUTOMATED) 2024-10-27 03:41:00 Hector Mcgraw [facility] POCT GLUCOSE (AUTOMATED) 2024-10-27 02:49:00 Hector Mcgraw [facility] TROPONIN I 2024-10-27 01:32:00 Regla Mcgraw [facility] BASIC METABOLIC PANEL (NA, K, CL, CO2, GLUCOSE, BUN, CREATININE, CA) 2024-10-27 01:32:00 Regla Mcgraw [facility] URINALYSIS 2024-10-27 01:32:00 Regla Mcgraw [facility] INFLUENZA A/B RSV COVID NAAT 2024-10-27 01:32:00 Regla Mcgraw [facility] POCT SARS-COV-2 ANTIGEN (BINAX NOW) 2024-03-01 00:00:00 Sima Elizabeth [facility] REFERRAL- REQUEST/RESPONSE 2023-03-26 05:01:00 Doctor Unassigned, [place] [facility] POCT SARS-COV-2 ANTIGEN (BINAX NOW) 2022-12-10 14:12:00 Pao Nolan [facility] EXTERNAL PROVIDER RECORDS 2022-05-23 05:01:00 Do ctor Unassigned, [place] [facility] EXTERNAL PROVIDER RECORDS 2022-05-08 05:01:00 Do ctor Unassigned, [place] [facility] ASSIGNMENT OF BENEFITS 2022-03-30 14:05:49 Docto r Unassigned, [place] [facility] MEDICATION CORRESPONDENCE 2022-01-01 05:01:00 Do ctor Unassigned, [place] [facility] Encounters Start Date/Time End Date/Time Encounter Type Admission Type Attending [facility] Care Facility Care Department Encounter ID Source 2024-11-11 07:15:00 2024-11-11 07:30:00 Office Visit Mario Pena [facility] 1.2.840.114 350.1.13.10 4.2.7.2.686 [id number] [id number] [facility] 2024-11-11 07:15:00 2024-11-11 07:15:00 Outpatient MARIO PRYOR [facility] [id number] [facility] 2024-11-10 08:30:00 2024-11-10 08:30:00 Outpatient HERMELINDA OLMSTEAD HAIDER [facility] [id number] [facility] 2024-11-08 15:15:00 2024-11-08 15:15:00 Outpatient MARIO PRYOR [facility] [id number] [facility] 2024-11-05 15:00:00 2024-11-05 15:00:00 Outpatient VIVI MAHONEY [facility] [id number] [facility] 2024-11-02 08:45:00 2024-11-02 08:45:00 Outpatient R MARIO PENA [facility] [id number] [facility] 2024-10-26 20:03:00 2024-10-26 23:07:00 Emergency X GEOVANY MCGRAWMALRia REGLA MCGRAW [facility] ERT [id number] [facility] 2024-10-26 20:03:00 2024-10-26 23:07:00 Emergency Regla Mcgraw Coreen [facility] 1.840.114 350.1.13.10 4.2.7.2.686 [id number] [facility] 2024-10-26 10:45:00 2024-10-26 10:54:05 Electroplater Automatic Visit Lab, Mario Leahy Lab, Raf Foote [facility] 1.840.114 350.1.13.10 4.2.7.2.686 [id number] [facility] 2024-10-26 10:00:00 2024-10-26 10:30:37 Outpatient MARIO PRYOR [facility] [id number] [facility] 2024-10-26 10:00:00 2024-10-26 10:15:00 Office Visit Mario Pena [facility] 1..840.114 350.1.13.10 4.2.7.2.686 [id number] 044 [id number] [facility] 2024-09-23 00:00:00 2024-09-23 10:00:55 Refill Mario Pena [facility] 1.840.114 350.1.13.10 4.2.7.2.686 [id number] 044 [id number] [facility] 2024-09-07 00:00:00 2024-09-07 11:47:05 Refill Rodney [facility] 1.2.840.114 350.1.13.10 4.2.7.2.686 [id number] 044 [id number] [facility] 2024-08-30 00:00:00 2024-08-30 10:05:56 Mario [facility] 1.2840.114 350.1.13.10 4.2.7.2.686 [id number] 044 [id number] [facility] 2024-08-26 00:00:00 2024-08-26 09:49:29 Mario Lorenzo [facility] 1.2840.114 350.1.13.10 4.2.7.2.686 [id number] 044 [id number] [facility] 2024-07-26 00:00:00 2024-07-26 12:57:26 Mario Lorenzo [facility] 1.2840.114 350.1.13.10 4.2.7.2.686 [id number] 044 [id number] [facility] 2024-07-23 00:00:00 2024-07-26 06:46:08 Mario Lorenzo [facility] 1.284.114 350.1.13.10 4.2.7.2.686 [id number] 044 [id number] [facility] 2024-07-09 00:00:00 2024-07-12 09:48:46 Patient Secure Msg Doctor Unassigned, [place] Doctor Unassigned, [place] [facility] 1.2840.114 350.1.13.10 4.2.7.2.686 [id number] 044 [id number] [facility] 2024-06-02 00:00:00 2024-06-02 09:22:36 [facility] 1.840.114 350.1.13.10 4.2.7.2.686 [id number] 044 [id number] [facility] 2024-05-31 00:00:00 2024-05-31 12:15:22 Refelissa Everdamonmimi Marissa [facility] 1.840.114 350.1.13.10 4.2.7.2.686 [id number] [facility] 2024-04-22 09:11:00 2024-04-22 23:59:00 Outpatient TREVOR ELIZALDE [facility] [id number] [address] [facility] 2024-04-19 00:00:00 2024-04-19 11:18:31 Refill Rodney [facility] [place]?[facility] 1.84.114 350.1.13.10 4.2.7.2.686 [id number] 044 [id number] [facility] 2024-03-22 15:00:00 2024-03-22 15:00:00 Outpatient PAT BELL HOWARD [facility] [id number] [facility] 2024-03-12 00:00:00 2024-03-15 06:30:08 Refill Rodney [facility] 1.84.114 350.1.13.10 4.2.7.2.686 [id number] 044 [id number] [facility] 2024-03-10 00:00:00 2024-03-10 10:44:59 [facility] 1.84.114 350.1.13.10 4.2.7.2.686 [id number] 044 [id number] [facility] 2024-03-02 00:00:00 2024-03-03 06:34:57 Patient Secure Msg Sima Elizabeth [facility] 1.2.840.114 350.1.13.10 4.2.7.2.686 [id number] 044 [id number] [facility] 2024-03-01 17:00:00 2024-03-01 17:15:00 Electroplater Automatic Visit Lab, Ang - Qamar Sima Elizabeth [facility] 1.2.840.114 350.1.13.10 4.2.7.2.686 [id number] [facility] 2024-03-01 00:00:00 2024-03-01 16:39:48 Letter (Out) Sima Elizabeth [facility] 1..840.114 350.1.13.10 4.2.7.2.686 [id number] 044 [id number] [facility] 2024-03-01 15:30:00 2024-03-01 16:38:30 Outpatient R GLENNCORAL GREENLIE [facility] [id number] [facility] 2024-03-01 15:30:00 2024-03-01 16:38:30 Office Visit Sima Elizabeth [facility] 1.2.840.114 350.1.13.10 4.2.7.2.686 [id number] 044 [id number] [facility] 2024-01-26 00:00:00 2024-01-26 09:33:38 Mario Lorenzo [facility] 1.2.840.114 350.1.13.10 4.2.7.2.686 [id number] 044 [id number] [facility] 2023-12-18 00:00:00 2023-12-18 10:54:02 Refill Mario Pena [facility] 1.84114 350.1.13.10 4.2.7.2.686 [id number] 044 [id number] [facility] 2023-11-24 00:00:00 2023-11-24 00:00:00 Refill Mario Pena [facility] 1..114 350.1.13.10 4.2.7.2.686 [id number] 044 [id number] [facility] 2023-11-04 09:45:00 2023-11-04 10:00:00 Office Visit Mario Pena [facility] 1.114 350.1.13.10 4.2.7.2.686 [id number] 044 [id number] [facility] 2023-11-04 09:45:00 2023-11-04 09:45:00 Outpatient MARIO PRYOR [facility] [id number] [facility] 2023-10-02 12:00:00 2023-10-02 12:15:00 Office Visit Mario Pena [facility] 1.84114 350.1.13.10 4.2.7.2.686 [id number] 044 [id number] [facility] 2023-10-02 12:00:00 2023-10-02 12:00:00 Outpatient R MARIO PENA [facility] [id number] [facility] 2023-09-30 00:00:00 2023-09-30 00:00:00 Patient Secure Msg Doctor Unassigned, [place] [facility] 1.84114 350.1.13.10 4.2.7.2.686 [id number] 044 [id number] [facility] 2023-09-16 00:00:00 2023-09-16 00:00:00 Telephone Mario Pena [facility] 1.2.840.114 350.1.13.10 4.2.7.2.686 [id number] 044 [id number] [facility] 2023-09-08 12:15:00 2023-09-08 12:30:00 Office Visit Mario Pena [facility] 1.2840.114 350.1.13.10 4.2.7.2.686 [id number] [id number] [facility] 2023-09-08 12:15:00 2023-09-08 12:15:00 Outpatient R RODNEY MARIO [facility] [id number] [facility] 2023-09-08 00:00:00 2023-09-08 00:00:00 Letter (Out) Rodney [facility] 1.840.114 350.1.13.10 4.2.7.2.686 [id number] 044 [id number] [facility] 2023-09-03 00:00:00 2023-09-03 00:00:00 Refill Mario Pena [facility] 1.2840.114 350.1.13.10 4.2.7.2.686 [id number] 044 [id number] [facility] 2023-08-05 00:00:00 2023-08-05 00:00:00 Refill Rodney Mario [facility] 1.2840.114 350.1.13.10 4.2.7.2.686 [id number] 044 [id number] [facility] 2023-07-31 09:30:00 2023-07-31 09:45:00 Office Visit Mario Pena [facility] 1.2.840.114 350.1.13.10 4.2.7.2.686 [id number] 044 [id number] [facility] 2023-07-31 09:30:00 2023-07-31 09:30:00 Outpatient R MARIO EPNA [facility] [id number] [facility] 2023-07-15 13:20:00 2023-07-15 13:20:00 Outpatient R AMALIA FOSTER [facility] [id number] [facility] 2023-06-25 11:30:00 2023-06-25 11:30:00 Outpatient R RANDA BARNES [facility] [id number] [facility] 2023-06-09 11:30:00 2023-06-09 11:30:00 Outpatient R RANDA BARNES [facility] [id number] [facility] 2023-05-28 00:00:00 2023-05-28 00:00:00 Patient Secure Msg Doctor Unassigned, [place] [facility] 1.2.840.114 350.1.13.10 4.2.7.2.686 [id number] [facility] 2023-05-26 11:30:00 2023-05-26 11:30:00 Outpatient R RANDA BARNES [facility] [id number] [facility] 2023-05-22 15:00:00 2023-05-22 15:27:37 Office Visit Mario Pena [facility] 1.2.840.114 350.1.13.10 4.2.7.2.686 [id number] 044 [id number] [facility] 2023-05-22 15:00:00 2023-05-22 15:00:00 Outpatient R PENA MARIO [facility] [id number] [facility] 2023-05-22 00:00:00 2023-05-22 00:00:00 Telephone Mario Pena [facility] 1..840.114 350.1.13.10 4.2.7.2.686 [id number] [id number] [facility] 2023-05-20 14:30:00 2023-05-20 14:30:00 Outpatient R RANDA BARNES [facility] [id number] [facility] 2023-04-28 14:30:00 2023-04-28 14:30:00 Outpatient R QUENTIN YORK [facility] [id number] [facility] 2023-04-22 15:15:00 2023-04-22 15:30:00 Electroplater Automatic Visit Lab, Amalia Lorenzana [facility] 1..840.114 350.1.13.10 4.2.7.2.686 [id number] [facility] 2023-04-22 13:40:00 2023-04-22 14:48:45 Outpatient R AMALIA FOSTER [facility] [id number] [facility] 2023-04-22 13:40:00 2023-04-22 14:00:00 Office Visit Amalia Foster [facility] 1..840.114 350.1.13.10 4.2.7.2.686 [id number] [id number] [facility] 2023-03-31 16:15:00 2023-03-31 16:58:56 Outpatient R QUENTIN YORK [facility] [id number] [facility] 2023-03-31 16:15:00 2023-03-31 16:58:56 Office Visit Quentin [facility] 1..840.114 350.1.13.10 4.2.7.2.686 [id number] [facility] 2023-03-26 00:00:00 2023-03-26 00:00:00 Orders Only Doctor Unassigned, [place] [facility] 1.840.114 350.1.13.10 4.2.7.2.686 [id number] [facility] 2023-03-03 13:30:00 2023-03-03 13:30:00 Outpatient QUENTIN LAROSE [facility] [id number] [facility] 2023-01-06 00:00:00 2023-01-06 00:00:00 Refill Marissa Middlteon [facility] 1..840.114 350.1.13.10 4.2.7.2.686 [id number] [facility] 2022-12-11 10:00:00 2022-12-11 10:00:00 Outpatient CHAPINCITO ALICIA [facility] [id number] [facility] 2022-12-10 09:00:00 2022-12-10 09:53:24 Outpatient MARISSA GILBERT [facility] [id number] [facility] 2022-12-10 09:00:00 2022-12-10 09:53:24 Urgent Care Marissa Middleton Unknown, Attending [facility] 1.840.114 350.1.13.10 4.2.7.2.686 [id number] [facility] 2022-11-25 15:15:00 2022-11-25 16:08:14 Outpatient R QUENTIN YORK [facility] [id number] [facility] 2022-11-25 15:15:00 2022-11-25 16:08:14 Office Visit Quentin York [facility] 1.840.114 350.1.13.10 4.2.7.2.686 [id number] [facility] 2022-11-19 13:30:00 2022-11-19 13:30:00 Outpatient R ANEUDY NERIS [facility] [id number] [facility] 2022-11-11 13:45:00 2022-11-11 15:00:08 Outpatient R QUENTIN YORK [facility] [id number] [facility] 2022-11-11 13:45:00 2022-11-11 15:00:08 Office Visit Quentin York [facility] 1.84.114 350.1.13.10 4.2.7.2.686 [id number] [facility] 2022-11-09 00:00:00 2022-11-09 00:00:00 Patient Secure Msg Doctor Unassigned, [place] [facility] 1.84114 350.1.13.10 4.2.7.2.686 [id number] [facility] 2022-11-04 11:45:00 2022-11-04 12:00:00 Office Visit Rodney [facility] 1.840.114 350.1.13.10 4.2.7.2.686 [id number] [id number] [facility] 2022-11-04 11:45:00 2022-11-04 11:45:00 Outpatient R MARIO PENA [facility] [id number] [facility] 2022-08-15 08:30:00 2022-08-15 08:45:00 Electroplater Automatic Visit Lab, Raf Pena Critical access hospital?[facility] 1.840.114 350.1.13.10 4.2.7.2.686 [id number] [facility] 2022-08-15 08:30:00 2022-08-15 08:30:00 Outpatient R KRISTEN PENAONY [facility] [id number] [facility] 2022-08-08 13:15:00 2022-08-08 13:30:00 Office Visit Mario Pena [facility] 1.114 350.1.13.10 4.2.7.2.686 [id number] [facility] 2022-08-08 13:15:00 2022-08-08 13:15:00 Outpatient R MARIO PENA [facility] [id number] [facility] 2022-08-05 12:00:00 2022-08-05 12:00:00 Outpatient MARIO PRYOR [facility] [id number] [facility] 2022-07-30 08:00:00 2022-07-30 08:00:00 Outpatient R PENA MARIO [facility] [id number] [facility] 2022-06-17 00:00:00 2022-06-17 00:00:00 Refill Rodney [facility] 1.114 350.1.13.10 4.2.7.2.686 [id number] [facility] 2022-06-11 00:00:00 2022-06-11 00:00:00 Refill Rodney [facility] 1.114 350.1.13.10 4.2.7.2.686 [id number] 044 [id number] [facility] 2022-05-23 00:00:00 2022-05-23 00:00:00 Orders Only Doctor Unassigned, [place] [facility] 1..114 350.1.13.10 4.2.7.2.686 [id number] [facility] 2022-05-08 00:00:00 2022-05-08 00:00:00 Orders Only Doctor Unassigned, [place] [facility] 1.2.840.114 350.1.13.10 4.2.7.2.686 [id number] [facility] 2022-04-17 00:00:00 2022-04-17 00:00:00 Telephone Mario Pena [facility] 1.2.840.114 350.1.13.10 4.2.7.2.686 [id number] [id number] [facility] 2022-03-30 09:00:00 2022-03-30 09:20:00 Urgent Care Ovidio [facility] 1.2.840.114 350.1.13.10 4.2.7.2.686 [id number] [facility] 2022-03-30 09:00:00 2022-03-30 09:00:00 Outpatient R PAO NOLAN [facility] [id number] [facility] 2022-03-30 00:00:00 2022-03-30 00:00:00 Orders Only Doctor Unassigned, [place] [facility] 1.2840.114 350.1.13.10 4.2.7.2.686 [id number] [facility] 2022-01-01 00:00:00 2022-01-01 00:00:00 Orders Only Doctor Unassigned, [place] [facility] 1.2840.114 350.1.13.10 4.2.7.2.686 [id number] [facility] 2021-10-10 15:40:00 2021-10-10 16:00:00 Office Visit Atanasov, Strahil [facility] 1.2.840.114 350.1.13.10 4.2.7.2.686 [id number] [facility] 2021-10-10 15:40:00 2021-10-10 15:40:00 Outpatient ELLIS GALLEGOS STRAARGigi [facility] [id number] [facility] 2021-09-08 19:30:00 2021-09-08 22:00:00 Electroplater Automatic Visit 1, [facility] Sleep Lab Bed Lizzie Shaygigi Minaya [facility] 1..840.114 350.1.13.10 4.2.7.2.686 [id number] [facility] 2021-09-08 19:30:00 2021-09-08 19:30:00 Outpatient ELLIS GALLEGOS STRAARGigi [facility] [id number] [facility] 2021-09-08 00:00:00 2021-09-08 00:00:00 Orders Only Doctor Unassigned, [place] [facility] 1..840.114 350.1.13.10 4.2.7.2.686 [id number] [facility] 2021-08-09 09:00:00 2021-08-09 09:15:00 Laboratory Only Only, [facility] Test Matilde Mark [facility] 1.2.840.114 350.1.13.10 4.2.7.2.686 [id number] [facility] 2021-08-09 09:00:00 2021-08-09 09:00:00 Outpatient MATILDE NOLASCO [facility] [id number] [facility] 2021-08-01 19:30:00 2021-08-01 19:30:00 Outpatient R ELLIS SHAY STRAARGigi [facility] [id number] [facility] 2021-08-01 10:00:00 2021-08-01 10:15:00 Laboratory Only Only, Adc Test Ellis Shay [facility] 1..114 350.1.13.10 4.2.7.2.686 [id number] [facility] 2021-08-01 10:00:00 2021-08-01 10:00:00 Outpatient R ELLIS SHAY STRAARGigi [facility] [id number] [facility] 2021-07-24 11:00:00 2021-07-24 11:15:00 Laboratory Only Only, Adc Test Matilde Mark [facility] 1.840.114 350.1.13.10 4.2.7.2.686 [id number] [facility] 2021-07-24 11:00:00 2021-07-24 11:00:00 Outpatient MATILDE NOLASCO [facility] [id number] [facility] 2021-07-24 00:00:00 2021-07-24 00:00:00 Patient Secure Msg Doctor Unassigned, [place] [facility] 1.84.114 350.1.13.10 4.2.7.2.686 [id number] [facility] 2021-07-23 19:30:00 2021-07-23 19:30:00 Outpatient R ELLIS SHAY STRAARGigi [facility] [id number] [facility] 2021-07-20 10:00:00 2021-07-20 10:00:00 Outpatient R [facility] [id number] [facility] 2021-07-17 00:00:00 2021-07-17 00:00:00 Mario Lorenzo [facility] 1.840.114 350.1.13.10 4.2.7.2.686 [id number] [facility] 2021-06-13 15:13:08 2021-06-13 15:33:08 Office Visit Ellis Sh[facility] 1.114 350.1.13.10 4.2.7.2.686 [id number] [facility] 2021-06-13 15:20:00 2021-06-13 15:20:00 [facility] [id number] [facility] 2021-06-13 15:20:00 2021-06-13 15:20:00 Outpatient R ELLIS SHAY STRAARGigi [facility] [id number] [facility] 2021-06-08 00:00:00 2021-06-08 00:00:00 Patient Secure Msg Doctor Unassigned, [place] [facility] 1.114 350.1.13.10 4.2.7.2.686 [id number] [facility] 2021-06-04 12:42:22 2021-06-04 12:57:22 Electroplater Automatic Visit Lab, Ang - Db Rodney Critical access hospital?[facility] MED[facility] BUILDING 1.114 350.1.13.10 4.2.7.2.686 [id number] [facility] 2021-06-04 12:15:00 2021-06-04 12:54:26 Outpatient R MARIO PENA [facility] [id number] [facility] 2021-06-04 12:20:21 2021-06-04 12:35:21 Office Visit Rodney Critical access hospital?[facility] MEDICAL OFF[facility] BUILDING 1.114 350.1.13.10 4.2.7.2.686 [id number] [facility] 2021-06-04 12:15:00 2021-06-04 12:15:00 Outpatient MARIO PRYOR [facility] [id number] [facility] 2021-05-18 00:00:00 2021-05-18 00:00:00 Refill Rodney [facility] Office Building 1..840.114 350.1.13.10 4.2.7.2.686 [id number] [facility] 2021-05-17 00:00:00 2021-05-17 00:00:00 Telephone Mario Pena [facility]inald[facility] Office Building 1..840.114 350.1.13.10 4.2.7.2.686 [id number] [facility] 2021-02-28 00:00:00 2021-02-28 00:00:00 Telephone Mario Pena [facility] Office Building One ..840.114 350.1.13.10 4.2.7.2.686 [id number] [facility] 2021-02-22 09:42:33 2021-02-22 10:02:33 Electroplater Automatic Visit Lab, Adc Fam Pob I Rodney [facility] Office Building One .840.114 350.1.13.10 4.2.7.2.686 [id number] [facility] 2021-02-22 09:40:00 2021-02-22 09:40:00 Outpatient MARIO PRYOR [facility] [id number] [facility] 2021-02-19 09:40:00 2021-02-19 09:40:00 Outpatient MARIO PRYOR [facility] [id number] [facility] 2021-02-16 00:00:00 2021-02-16 00:00:00 Telephone Mario Pena [facility] Office Building One 1.114 350.1.13.10 4.2.7.2.686 [id number] [facility] 2021-02-13 00:00:00 2021-02-13 00:00:00 Telephone Mario Pena [facility] Office Building One .114 350.1.13.10 4.2.7.2.686 [id number] [facility] 2021-02-08 09:00:00 2021-02-08 09:00:00 Outpatient R [facility] [id number] [facility] 2021-02-08 00:00:00 2021-02-08 00:00:00 Orders Only Doctor Unassigned, [place] [facility] 1.114 350.1.13.10 4.2.7.2.686 [id number] [facility] 2021-02-07 00:00:00 2021-02-07 00:00:00 Refill Mario Pena [facility] Building 1.114 350.1.13.10 4.2.7.2.686 [id number] [facility] 2021-01-31 10:15:00 2021-01-31 10:15:00 Outpatient R KRISTEN PENAONY [facility] [id number] [facility] 2021-01-29 09:36:42 2021-01-29 09:56:42 Electroplater Automatic Visit Lab, Adc Fam Pob I Unknown, Attending [facility] Office Building One 1.114 350.1.13.10 4.2.7.2.686 [id number] [facility] 2021-01-29 09:40:00 2021-01-29 09:40:00 Outpatient R UNKNOWN, ATTENDING [facility] [id number] [facility] 2021-01-29 00:00:00 2021-01-29 00:00:00 Orders Only Doctor Unassigned, [place] [facility] 1.2.840.114 350.1.13.10 4.2.7.2.686 [id number] [facility] 2020-12-26 00:00:00 2020-12-26 00:00:00 Refill Mario Pena [facility] Building 1.2.840.114 350.1.13.10 4.2.7.2.686 [id number] [facility] 2020-12-26 00:00:00 2020-12-26 00:00:00 Refill Mario Pena [facility] Building 1.2.840.114 350.1.13.10 4.2.7.2.686 [id number] 2020-11-15 00:00:00 2020-11-15 00:00:00 Letter (Out) Clinic, [facility] Neurology [facility] 1.2.840.114 350.1.13.10 4.2.7.2.686 [id number] [facility] 2020-11-15 00:00:00 2020-11-15 00:00:00 Letter (Out) Clinic, [facility] Neu[facility] 1.2.840.114 350.1.13.10 4.2.7.2.686 [id number] 2020-11-14 08:00:00 2020-11-14 08:00:00 Outpatient PAT BELL HOWARD [facility] [id number] [facility] 2020-11-09 08:55:04 2020-11-09 09:10:04 Office Visit Mario Pena [facility] Office Building One 1.0.114 350.1.13.10 4.2.7.2.686 [id number] [facility] 2020-11-09 08:55:04 2020-11-09 09:10:04 Office Visit Mario Pena [facility] Office Building One 1.0.114 350.1.13.10 4.2.7.2.686 [id number] 2020-11-09 08:45:00 2020-11-09 08:45:00 Outpatient R MARIO PENA [facility] [id number] [facility] 2020-11-02 08:06:52 2020-11-02 08:26:52 Electroplater Automatic Visit Lab, Adc Fam Pob I Rodney [facility] Office Building One 1..114 350.1.13.10 4.2.7.2.686 [id number] [facility] 2020-11-02 08:00:00 2020-11-02 08:00:00 Outpatient R MARIO PENA [facility] [id number] [facility] 2020-11-02 00:00:00 2020-11-02 00:00:00 Telephone Mario Pena [facility] Office Building One 1..114 350.1.13.10 4.2.7.2.686 [id number] [facility] 2020-07-14 00:00:00 2020-07-14 00:00:00 Refill Mario Pena [facility] Building 1..114 350.1.13.10 4.2.7.2.686 [id number] [facility] 2020-07-03 17:05:10 2020-07-03 17:25:10 Laboratory Only Lab, Adc Fam Pob I Omaghomi, Omayemi [facility] Office Building One 1..840.114 350.1.13.10 4.2.7.2.686 [id number] [facility] 2020-07-03 17:20:00 2020-07-03 17:20:00 Outpatient R [facility] [id number] [facility] 2019-12-06 14:00:00 2019-12-06 14:00:00 Outpatient R MARIO PENA [facility] [id number] [facility] 2019-12-06 07:42:48 2019-12-06 07:57:48 Telemedici ne Visit Mario Pena [facility] Building 1..840.114 350.1.13.10 4.2.7.2.686 [id number] [facility] 2019-10-25 14:45:00 2019-10-25 14:45:00 Outpatient R MARIO PENA [facility] [id number] [facility] 2019-10-22 16:00:00 2019-10-22 16:00:00 Outpatient R ROSITA YATES [facility] [id number] [facility] 2019-10-19 00:00:00 2019-10-19 00:00:00 Telephone Mario Pena [facility] Office Building One 1..840.114 350.1.13.10 4.2.7.2.686 [id number] [facility] 2019-10-18 15:20:00 2019-10-18 15:20:00 Outpatient R ROSITA YATES [facility] [id number] [facility] 2019-10-15 07:00:00 2019-10-15 07:00:00 Outpatient R SIMA ELIZABETH [facility] [id number] [facility] 2019-10-08 14:20:00 2019-10-08 14:20:00 Outpatient R SIMA ELIZABETH [facility] [id number] [facility] 2019-10-08 08:00:00 2019-10-08 08:00:00 Outpatient SIMA SAAVEDRA [facility] [id number] [facility] Results Test Description Test Time Test Comments Results Result Co mments [facility] 02:49:34* Test Item Value Reference Range Interpretation Comme [facility] POCT GLU (test code = 7190412328) 292 mg/dL 70-110 H Lab Interpretation (test cod e = 99493-5) Abnormal [facility] (NA, K, CL, CO2, GLUCOSE, BUN, CREATININE, CA)2024-10-27 02:14:14* Test Item Value Reference Range Interpretation Comme nts NA (test code = 3215043996) 132 mmol/L 135-145 L K (test code = 0753681747) 4.1 mmol/L 3.5-5.0 CL (test code = 9845191185) 101 mmol/L 98-108 CO2 TOTAL (test code = 0560223560) 21 mmol/L 23-31 L AGAP (test code = 1414876163) 10 2-16 BUN (test code = 4689608956) 16 mg/dL 7-23 GLUCOSE (test code = 5367922136) 324 mg/dL 70-110 H CREATININE (test code = 2160-0) 0.58 mg/dL 0.50-1.04 CALCIUM (test code = 3520265085) 8.7 mg/dL 8.6-10.6 eGFR (test code = 98932-1) 102.5 mL/min/1.73m2 CKD-EPI eGFR (2020). Assuming creatinine has been stable day-to-day for at least three months, the eGFR indicates Category G1 (>= 90 mL/min/1.73 m2) Lab Interpretation (test code = 55813-9) [facility]normal [facility] F8881-22-17 02:10:47* Test Item Value Reference Range Interpretation Comme nts TROPONIN I (test code = 9307866567) 0.000 ng/mL <=0.034 DAYANARA (test code = DAYANARA) Reference (Normal) Range (defined by the 99th percentile reference limit): <= 0.034 ng/mL Note: Cardiac troponin begins to rise 3-4 hours after the onset of ischemia. Repeat in 4-6 hours if the sample was drawn within 3-4 hours of the onset of the symptom and found normal. Diagnosis of myocardial injury is made with acute changes in cTn concentrations with at least one serial sample above the 99th percentile upper reference limit (URL), taken together with the patient's clinical presentation. Biotin has been reported to cause a negative bias, interpret results relative to patient's use of biotin. Lab Interpretation (test code = 16548-7) Normal [facility] SARS-COV-2 ANTIGEN (BINAX NOW)2024-03-01 21:38:00* Test Item Value Reference Range Interpretation Comme nts POCT SARS-COV-2 ANTIGEN (test code = 68858-7) Not Detected Not Detected, See Comment On board controls acceptable with C Line (test code = 3574) Yes [facility] SARS-COV-2 ANTIGEN (BINAX NOW)2022-12-10 14:27:00* Test Item Value Reference Range Interpretation Comme nts POCT SARS-COV-2 ANTIGEN (jesus t code = 01258-9) Not Detected Not Detected On board controls acceptable with C Line (test code = 3574) Yes Lab Interpretation (test cod e = 38752-6) Normal [facility] Notes Date/Time Note Provider Source 2024-10-26 23:05:41 Pt discharged with diagnosis of nausea, hyperglycemia due to diabetes mellitus, and PCV. Printed and verbal instructions reviewed with and given to pt. Prescriptions given x 1. pt verbalized understanding of teaching and recommended follow-up. Denies questions or concerns at this time. Pt ambulatory at discharge. Appears in no apparent distress. No ataxia noted. Accompanied by spouse. Ashlie Barber RN [facility] 2024-10-26 19:57:25 Pt. Presents to ED via w/c with C/O of nausea approx. 5, diarrhea x3 that started today; pt. Reports she was seen by PCP this morning & was referred to cardiology; in between appointments pt. Reports is when the pt. Began not feeling well; PMH afib, chronic back pain Whitney Richards RN [facility] 2024-10-26 10:45:00 Images from the original note were not included. Venipuncture collection performed by clean technique on the right anticubitus. Total of 1 attempts were made. Slight pressure and a bandage/dressing were applied to the site(s). The patient experienced no complications. The following specimens were processed according to instructions and sent to [facility] laboratories per lab order on 10/26/2024 : LT BLUE SST 2 RED LAV 2 PPT DK GREEN (LiHep) DK GREEN (SodH) ARANDA DK BLUE (K2) DK BLUE (S) ACD Blood Culture NIPT/NTD [facility] 2024-08-26 09:23:27 lisdexamfetamine 40 mg capsule 30 capsule 0 07/26/2024 Notes: [facility]/pharmacy #[id number] - [place], [place] - [address] AT [facility] Last Refilled: 07/26/24 Recent Visits Date Type Provider Dept 03/01/24 Office Visit Sima Elizabeth PA [facility] 11/04/23 Office Visit Mario Pena MD [facility] 10/02/23 Office Visit Mario Pena MD [facility] 09/08/23 Office Visit Mario Pena MD [facility] 07/31/23 Office Visit Mario Pena MD [facility] 05/22/23 Office Visit Mario Pena MD [facility] Showing recent visits within past 540 days with a meds authorizing provider and meeting all other requirements Future Appointments No visits were found meeting these conditions. Showing future appointments within next 150 days with a meds authorizing provider and meeting all other requirements [facility] [employer] 2024-07-26 12:39:02 Notes: please review and advise, pharmacy change. Also, Zoloft says start day is 09/03/23 is this correct? Last Refilled: lisdexamfetamine 40 mg capsule 30 capsule 0 07/26/2024 -- -- Sig: Take 1 capsule by mouth every morning. Sent to pharmacy as: lisdexamfetamine 40 mg capsule (VYVANSE) Class: eRX Earliest Fill Date: 07/26/2024 Route: Oral Order: [id number] Date/Time Signed: 07/26/2024 06:46 E-Prescribing Status: Receipt confirmed by pharmacy (07/26/2024 6:46 AM [facility]) SERTraline 100 mg tablet 90 tablet 3 09/03/2023 -- -- Sig: Take 1 tablet by mouth in the morning. Sent to pharmacy as: sertraline 100 mg tablet (ZOLOFT) Class: eRX Route: Oral Order: [id number] Date/Time Signed: 09/03/2023 10:48 E-Prescribing Status: Receipt confirmed by pharmacy (09/03/2023 10:48 AM [facility]) Recent Visits Date Type Provider Dept 03/01/24 Office Visit Sima Elizabeth PA [facility] 11/04/23 Office Visit Mario Pena MD [facility] 10/02/23 Office Visit Mario Pena MD [facility] 09/08/23 Office Visit Mario Pena MD [facility] 07/31/23 Office Visit Mario Pena MD [facility] 05/22/23 Office Visit Mario Pena MD [facility] Showing recent visits within past 540 days with a meds authorizing provider and meeting all other requirements Future Appointments No visits were found meeting these conditions. Showing future appointments within next 150 days with a meds authorizing provider and meeting all other requirements [facility] [employer] 2024-07-23 13:55:38 Notes: please review and advise Last Refilled: lisdexamfetamine 40 mg capsule 30 capsule 0 06/02/2024 -- -- Sig: Take 1 capsule by mouth every morning. Sent to pharmacy as: lisdexamfetamine 40 mg capsule (VYVANSE) Class: eRX Earliest Fill Date: 06/02/2024 Route: Oral Order: [id number] Date/Time Signed: 06/02/2024 09:22 E-Prescribing Status: Receipt confirmed by pharmacy (06/02/2024 9:22 AM CDT) Recent Visits Date Type Provider Dept 03/01/24 Office Visit Sima Elizabeth PA [facility] 11/04/23 Office Visit Mario Pena MD [facility] 10/02/23 Office Visit Mario Pena MD [facility] 09/08/23 Office Visit Mario Pena MD [facility] 07/31/23 Office Visit Mario Pena MD [facility] 05/22/23 Office Visit Mario Pena MD [facility] Showing recent visits within past 540 days with a meds authorizing provider and meeting all other requirements Future Appointments No visits were found meeting these conditions. Showing future appointments within next 150 days with a meds authorizing provider and meeting all other requirements [facility] 2024-07-09 16:06:11 I recommend patient go to the [facility] urgent care for evaluation and treatment. [facility] 2024-07-09 13:42:56 Dr Pena, I've been down since Friday with flu like symptoms. I did a home covid test this morning and it was positive. It's there anything that can be called in for me? Thank you. Lillie Wasserman RESEARCH TECHNICIAN Mary Babin NATHALIE [facility] 2024-06-02 08:46:14 Recent Visits Date Type Provider Dept 03/01/24 Office Visit Sima Elizabeth PA [facility] 11/04/23 Office Visit Mario Pena MD [facility] 10/02/23 Office Visit Mario Pena MD [facility] 09/08/23 Office Visit Mario Pena MD [facility] 07/31/23 Office Visit Mario Pena MD [facility] 05/22/23 Office Visit Mario Pena MD [facility] Showing recent visits within past 540 days with a meds authorizing provider and meeting all other requirements Future Appointments No visits were found meeting these conditions. Showing future appointments within next 150 days with a meds authorizing provider and meeting all other requirements Last refill was Disp Refills Start End TONG lisdexamfetamine 40 mg capsule 30 capsule 0 04/19/2024 -- -- Sig: Take 1 capsule by mouth every morning. Ligia Bill MA [facility] 2024-04-19 07:58:30 From: Estephanie Wasserman To: Office of Mario Pena Sent: 04/17/2024 8:25 AM CDT Subject: Medication Renewal Request Refills have been requested for the following medications: lisdexamfetamine 40 mg capsule [Mario Pena] Preferred pharmacy: [facility]PHARMACY #[id number] - [place], [place] - [address] AT [facility] [address] Delivery method: Pickup Recent Visits Date Type Provider Dept 03/01/24 Office Visit Sima Elizabeth PA [facility] 11/04/23 Office Visit Mario Pena MD [facility] 10/02/23 Office Visit Mario Pena MD [facility] 09/08/23 Office Visit Mario Pena MD [facility] 07/31/23 Office Visit Mario Pena MD [facility] 05/22/23 Office Visit Mario Pena MD [facility] 04/22/23 Office Visit Amalia Foster MD [facility] 11/04/22 Office Visit Mario Pnea MD [facility] Showing recent visits within past 540 days with a meds authorizing provider and meeting all other requirements Future Appointments No visits were found meeting these conditions. Showing future appointments within next 150 days with a meds authorizing provider and meeting all other requirements [facility] 2024-03-12 14:09:19 Note: please review, pt needs to send to a different location Last Refilled: lisdexamfetamine 40 mg capsule 30 capsule 0 03/10/2024 -- -- Sig: Take 1 capsule by mouth every morning. Sent to pharmacy as: lisdexamfetamine 40 mg capsule (VYVANSE) Class: eRX Earliest Fill Date: 03/10/2024 Route: Oral Order: [id number] Date/Time Signed: 03/10/2024 10:44 E-Prescribing Status: Receipt confirmed by pharmacy (03/10/2024 10:45 AM CDT) Recent Visits Date Type Provider Dept 03/01/24 Office Visit Sima Elizabeth PA [facility] 11/04/23 Office Visit Mario Pena MD [facility] 10/02/23 Office Visit Mario Pena MD [facility] 09/08/23 Office Visit Mario Pena MD [facility] 07/31/23 Office Visit Mario Pena MD [facility] 05/22/23 Office Visit Mario Pena MD [facility] 04/22/23 Office Visit Amalia Foster MD [facility] 11/04/22 Office Visit Mario Pena MD [facility] Showing recent visits within past 540 days with a meds authorizing provider and meeting all other requirements Future Appointments No visits were found meeting these conditions. Showing future appointments within next 150 days with a meds authorizing provider and meeting all other requirements [facility] 2024-03-12 14:07:34 From: Estephanie Wasserman To: Office of Mario Pena Sent: 03/11/2024 6:53 PM CDT Subject: Medication Renewal Request Refills have been requested for the following medications: lisdexamfetamine 40 mg capsule [Mario Pena] Patient Comment: First refill request was sent to [facility] [employer]. Icanceled the order with [facility] and [employer] called and said they need a new prescription. Ca n you please forward a new script? Preferred pharmacy: [facility]PH[facility]ACY #[id number] [place], [place] - [address] [facility] [address] [place] Delivery method: Pickup [facility] 2024-03-10 10:42:36 Recent Visits Date Type Provider Dept 03/01/24 Office Visit Sima Elizabeth PA [facility] 11/04/23 Office Visit Mario Pena MD [facility] 10/02/23 Office Visit Mario Pena MD [facility] 09/08/23 Office Visit Mario Pena MD [facility] 07/31/23 Office Visit Mario Pena MD [facility] 05/22/23 Office Visit Mario Pena MD [facility] 04/22/23 Office Visit Amalia Foster MD [facility] 11/04/22 Office Visit Mario Pena MD [facility] Showing recent visits within past 540 days with a meds authorizing provider and meeting all other requirements Future Appointments No visits were found meeting these conditions. Showing future appointments within next 150 days with a meds authorizing provider and meeting all other requirements Last refill was lisdexamfetamine 40 mg capsule 30 capsule 0 01/26/2024 -- -- Sig: Take 1 capsule by mouth every morning. [facility] 2024-03-02 15:29:23 Please review, complete, and sign if appropriate. [facility] 2024-03-01 17:00:00 Images from the original note were not included. Venipuncture collection performed by clean technique on the right anticubitus. Total of 1 attempts were made. Slight pressure and a bandage/dressing were applied to the site(s). The patient experienced no complications. The following specimens were processed according to instructions and sent to [facility] laboratories per lab order on 03/01/2024 : LT BLUE SST 3 RED LAV 2 PPT DK GREEN (LiHep) DK GREEN (SodH) ARANDA DK BLUE (K2) DK BLUE (S) ACD Blood Culture NIPT/NTD [facility] 2024-01-26 09:05:25 From: Estephanie Wasserman To: Office of Mario Pena Sent: 01/25/2024 2:05 PM CDT Subject: Medication Renewal Request Refills have been requested for the following medications: lisdexamfetamine 40 mg capsule [Mario Pena] Preferred pharmacy: [facility] #[id number] - [place], [place] - [facility] [address] AT [facility] [address] [place] Delivery method: Pickup Recent Visits Date Type Provider Dept 11/04/23 Office Visit Mario Pena MD [facility] 10/02/23 Office Visit Mario Pena MD [facility] 09/08/23 Office Visit Mario Pena MD [facility] 07/31/23 Office Visit Mario Pena MD [facility] 05/22/23 Office Visit Mario Pena MD [facility] 04/22/23 Office Visit Amalia Foster MD [facility] 11/04/22 Office Visit Mario Pena MD [facility] 08/08/22 Office Visit Mario Pena MD [facility] Showing recent visits within past 540 days with a meds authorizing provider and meeting all other requirements Future Appointments No visits were found meeting these conditions. Showing future appointments within next 150 days with a meds authorizing provider and meeting all other requirements [facility] 2023-12-18 10:48:15 From: Estephanie Wasserman To: Office of Mario Pena Sent: 12/18/2023 10:26 AM CDT Subject: Medication Renewal Request Refills have been requested for the following medications: lisdexamfetamine 40 mg capsule [Mario Pena] Patient Comment: I'm asking a week early because it takes so long for the pharmacy to fill it. Up to 2 weeks because they have to order it. Preferred pharmacy: [id number] [place] [address] AT [facility] Delivery method: Pickup [facility] 2023-11-24 07:02:53 From: Estephanie Wasserman To: Office of Mario Pena MD Sent: 11/22/2023 12:54 PM CDT Subject: Medication Renewal Request Refills have been requested for the following medications: lisdexamfetamine 40 mg capsule [Mario Pena] Preferred pharmacy: [id number] [address] [facility] [address] [place] Delivery method: Pickup Recent Visits Date Type Provider Dept 11/04/23 Office Visit Mario Pena MD [facility] 10/02/23 Office Visit Mario Pena MD [facility] 09/08/23 Office Visit Mario Pena MD [facility] 07/31/23 Office Visit Mario Pena MD [facility] 05/22/23 Office Visit Mario Pena MD [facility] 04/22/23 Office Visit Amalia Foster MD [facility] 11/04/22 Office Visit Mario Pena MD [facility] 08/08/22 Office Visit Mario Pena MD [facility] Showing recent visits within past 540 days with a meds authorizing provider and meeting all other requirements Future Appointments No visits were found meeting these conditions. Showing future appointments within next 150 days with a meds authorizing provider and meeting all other requirements [facility] 2023-09-16 13:03:46 Estephanie Wasserman is a 63 year old female is requesting the prescription for lisdexamfetamine (VYVANSE) 30 mg capsule be sent to [facility] [address] [place] [address] due to the fact that medication is on back order at other pharmacy. Please advise RESEARCH TECHNICIAN James Bustos [facility] 2023-09-03 08:33:34 Outpatient Medication Detail Disp Refills Start End TONG SERTraline 100 mg tablet 90 tablet 3 08/08/2022 -- No Sig: Take 1 tablet by mouth in the morning. Sent to pharmacy as: sertraline 100 mg tablet (ZOLOFT) Class: eRX Route: Oral Order: [id number] Date/Time Signed: 08/08/2022 13:07 E-Prescribing Status: Receipt confirmed by pharmacy (08/08/2022 1:07 PM FEED RESEARCH TECHNICIAN) Recent Visits Date Type Provider Dept 07/31/23 Office Visit Mario Pena MD [facility] 05/22/23 Office Visit Mario Pena MD [facility] 04/22/23 Office Visit Amalia Foster MD [facility] 11/04/22 Office Visit Mario Pena MD [facility] 08/08/22 Office Visit Mario Pena MD [facility] Showing recent visits within past 540 days with a meds authorizing provider and meeting all other requirements Future Appointments Date Type Provider Dept 09/08/23 Appointment Mario Pena MD [facility] Showing future appointments within next 150 days with a meds authorizing provider and meeting all other requirements [facility] 2023-09-03 08:33:30 From: Estephanie Wasserman To: Office of Mario Pena MD Sent: 09/03/2023 7:36 AM FEED RESEARCH TECHNICIAN Subject: Medication Renewal Request Refills have been requested for the following medications: SERTraline 100 mg tablet [Mario Pena] Preferred pharmacy: [facility] - [address] Delivery method: Mail [facility] 2023-04-22 15:15:00 Formatting of this n ote is different from the original. Images from the original note were not included. Venipuncture collection performed by clean technique on the right anticubitus. Total of 1 attempts were made. Slight pressure and a bandage/dressing were applied to the site(s). The patient experienced no complications. The following specimens were processed according to instructions and sent to [facility] laboratories per lab order on today: LT BLUE SST 1 RED LAV 2 PPT DK GREEN (LiHep) DK GREEN (SodH) ARANDA DK BLUE (K2) DK BLUE (S) ACD Blood Culture NIPT/NTD [facility]
[2024-11-12 13:06] LABS: Absolute Basophils 0.1 K/uL (0-0.5); Absolute Eosinophils 0.1 K/uL (0-0.5); Absolute Lymphocytes (CBC) 2.9 K/uL (0.7-4.9); Absolute Monocytes 0.4 K/uL (0.1-1.3); Absolute Neutrophil 4.6 K/uL (1.8-8.0); Basophils % 0.7 % (0-1.3); Eosinophils % 1.1 % (0-4.4); Hematocrit 40.2 % (36.0-45.0); Hemoglobin 13.6 g/dL (12.0-15.0); Lymphocytes % 35.4 % (15.3-44.8); MCH 24.4 pg (27.0-35.0); MCHC 33.8 g/dL (32.0-36.0); MCV 72.1 fL (80-100); MPV 9.9 fL (7.6-11.3); Monocytes % 5.5 % (3.3-12.3); Neutrophils % 57.3 % (41.7-73.7); Nucleated Red Blood Cells % 0.2 % (0-0); Platelets 206 thou/uL (152-406); RBC Red Blood Cell Count 5.58 M/uL (3.86-4.86); Red Cell Distribution Width 14.9 % (12.1-15.2)
[2024-11-12] MEDS ORDERED: NA CHLORIDE 0.9% 1,000 ML ONE ×2 (13:17→14:22)
--- NOTE | 2024-11-12 13:21 | RAD REPORT ---
EXAMINATION: ONE VIEW CHEST XR CLINICAL INDICATION: COUGH TECHNIQUE: Frontal chest projection is submitted. Examination is limited by patient positioning and t echnique. COMPARISON: 10/11/2019 FINDINGS: The lungs are well inflated and clear. The heart is upper limit of normal in size. No displaced fract ures identified. IMPRESSION: No acute intrathoracic abnormalities.
[2024-11-12 13:26] LABS: ALT/SGPT 20 U/L (13-56); AST/SGOT 17 U/L (15-37); Albumin/Globulin Ratio 1.1 (1.1-1.8); Alkaline Phosphatase 62 U/L (45-117); BUN Blood Urea Nitrogen 10 mg/dL (7-18); Bicarbonate 24 mEq/L (21-32); Bilirubin Total 0.3 mg/dL (0.2-1.0); Globulin 2.7 g/dL (2.3-3.5); Glomerular Filtration Rate 101 ml/min (=/>90); Glucose Level 260 mg/dL (74-106); Lipase 21 U/L (13-75); Magnesium 1.7 mg/dL (1.6-2.4); NT PRO-BNP 25 pg/mL (<125); Protein, Total 5.7 g/dL (6.4-8.2); Sodium Level 138 mEq/L (136-145); Troponin High Sensitivity 5.2 pg/mL (<58.9)
[2024-11-12 13:30] LABS: Bilirubin Direct < 0.2 mg/dL (0-0.2); Bilirubin Indirect, Calculated 0.1 mg/dL (0.2-0.8)
[2024-11-12 13:48] LABS: Specific Gravity 1.011 (1.005-1.030); Sqamous Epithelial <5 /HPF (None Seen); Urine Bacteria None Seen /HPF (<20); Urine Bilirubin NEGATIVE (Negative); Urine Blood Negative (Negative); Urine Clarity Turbid (Clear); Urine Color Light-Yellow (Yellow); Urine Culture Reflex Order NOT NEEDED; Urine Glucose 2+ (Negative); Urine Ketones 1+ (Negative); Urine Microscopic Reflex YN ORDER UMIC; Urine Mucus Slight /HPF (None Seen); Urine Nitrite NEGATIVE (Negative); Urine Protein NEGATIVE (Negative); Urine RBC None Seen /HPF (None Seen); Urine Urobilinogen Normal (Normal); Urine WBC <5 /HPF (<5); Urine pH 5.5 (5.0-7.0)
[2024-11-12 14:13] LABS: PT Prothrombin Time 11.2 SECONDS (10-13.0); Protime INR 0.98
[2024-11-12] MEDS ORDERED: MAGNESIUM SULFATE 1 gm IVPB 1 GM/100 ML BAG IV ONE (14:21)
--- NOTE | 2024-11-12 14:57 | ER ---
Nurse's Notes [facility] Name: Estephanie Wasserman Age: 64 yrs Sex: Female : 1960 Arrival Date: 11/12/2024 Time: 12:31 Bed 23 Private MD: Diagnosis: Syncope Near;Orthostatic hypotension;Weakness Presentation: 11/12 13:00 Chief complaint: EMS states: toned out for near syncope. Patient was donating blood me1 plasma but this is the second time shes almost passed out. c/o generalized weakness and some dizziness after episode of near syncope. BGL 234. 22g R hand and given 600mg LR. NSR for EMS. Coronavirus screen: At this time, the client does not indicate any symptoms associated with coronavirus-19. Ebola Screen: No symptoms or risks identified at this time. Initial Sepsis Screen: Does the patient meet any 2 criteria? No. Patient's initial sepsis screen is negative. Does the patient have a suspected source of infection? No. Patient's initial sepsis screen is negative. Risk Assessment: Do you want to hurt yourself or someone else? Patient reports no desire to harm self or others. Onset of symptoms was November 12, 2024 at 12:00. 13:00 Method Of Arrival: EMS me1 13:00 Acuity: SARA 3 me1 Triage Assessment: 13:05 General: Appears in no apparent distress. well groomed, well developed, well nourished, me1 Behavior is calm, cooperative, appropriate for age. Pain: Denies pain. EENT: No signs and/or symptoms were reported regarding the EENT system. Neuro: Level of Consciousness is awake, alert, obeys commands, Oriented to person, place, time, situation, Appropriate for age Reports dizziness, episode of near syncope. Cardiovascular: Patient's skin is warm and dry. Respiratory: Airway is patent Respiratory effort is even, unlabored, Respiratory pattern is regular, symmetrical. GI: No signs and/or symptoms were reported involving the gastrointestinal system. : No signs and/or symptoms were reported regarding the genitourinary system. Derm: Skin is intact, is healthy with good turgor, Skin is pink, warm \T\ dry. Musculoskeletal: No signs and/or symptoms reported regarding the musculoskeletal system. Historical: - Allergies: 13:05 Morphine (Respiratory distress); me1 - PMHx: 13:05 Depression; Diabetes - NIDDM; me1 - PSHx: 13:05 gastric sleeve; left knee; right knee; Tonsillectomy; me1 - Immunization history:: Adult Immunizations up to date. - Infectious Disease History:: Denies. - Social history:: Smoking status: Patient denies any tobacco usage or history of. - Family history:: not pertinent. Screenin:11 [facility] ED Fall Risk Assessment (Adult) History of falling in the last 3 months, me1 including since admission No falls in past 3 months (0 pts) Confusion or Disorientation No (0 pts) Intoxicated or Sedated No (0 pts) Impaired Gait No (0 pts) Mobility Assist Device Used No (0 pt) Altered Elimination No (0 pt) Score/Fall Risk Level 0 - 2 = Low Risk Maintained a safe environment, Provided non-skid footwear, Hourly rounding (assess needs \T\ fall precautionary measures) done. Abuse screen: Denies threats or abuse. Nutritional screening: No deficits noted. Tuberculosis screening: No symptoms or risk factors identified. Assessment: 13:11 General: See triage assessment. me1 Vital Signs: 13:00 BP 99 / 62; Pulse 76; Resp 19; Temp 98.3; Pulse Ox 100% ; Weight 87.54 kg; Height 5 ft. me1 5 in. ; Pain 0/10; 13:15 BP 97 / 61; Pulse 81; Resp 16; Pulse Ox 100% ; me1 14:00 BP 96 / 78; Pulse 86; Resp 16; Pulse Ox 97% ; me1 15:00 BP 121 / 70; Pulse 97; Resp 16; Pulse Ox 100% ; me1 15:21 BP 102 / 53 Supine; Pulse 111; Resp 16; Pulse Ox 98% ; me1 15:22 BP 97 / 53 Sitting; Pulse 111; Resp 16; Pulse Ox 98% ; me1 15:23 BP 77 / 49; Pulse 112; Resp 16; Pulse Ox 99% ; me1 16:00 BP 84 / 51; Pulse 92; Resp 16; Pulse Ox 98% ; me1 17:00 BP 96 / 62; Pulse 88; Resp 16; Pulse Ox 95% ; me1 18:00 BP 101 / 51; Pulse 104; Resp 16; Pulse Ox 96% ; me1 19:00 BP 121 / 64; Pulse 85; Resp 16; Pulse Ox 100% ; me1 20:00 BP 99 / 48; Pulse 111; Resp 6; Pulse Ox 98% ; me1 21:00 BP 109 / 58; Pulse 99; Resp 17; Pulse Ox 96% ; me1 21:48 BP 124 / 73; Pulse 90; Resp 16; Pulse Ox 96% ; me1 13:00 Body Mass Index 32.12 (87.54 kg, 165.1 cm) me1 13:00 Pain Scale: Adult [facility] ED Course: 12:38 Patient arrived in ED. eb 12:40 Alex Ashley MD is Attending Physician. vamsi 12:55 Basic Metabolic Panel Sent. ty 12:55 CBC with Diff Sent. ty 12:55 LFT's Sent. ty 12:55 Magnesium Sent. ty 12:55 NT PRO-BNP Sent. ty 12:55 PT-INR Sent. ty 12:55 Troponin HS Sent. ty 12:55 Initial lab(s) drawn, by nj, sent to lab. Maintain EMS IV. Dressing intact. Good blood ty return noted. Site clean \T\ dry. Gauge \T\ site: 22 Gauge Right Hand. Flushed with 10 mL NS. 12:56 Valorie Chowdhury, RN is Primary Nurse. me1 13:05 Triage completed. me1 13:05 Arm band placed on Patient placed in an exam room. me1 13:11 No provider procedures requiring assistance completed. me1 13:11 Patient has correct armband on for positive identification. Bed in low position. Call [facility] light in reach. Side rails up X 1. Provided Education on: POC. Verbalized understanding.. Client placed on continuous cardiac and pulse oximetry monitoring. NIBP monitoring applied. solar pv installer on. Pulse ox on. NIBP on. 13:13 Basic Metabolic Panel Sent. me1 13:13 LFT's Sent. me1 13:13 Magnesium Sent. me1 13:13 NT PRO-BNP Sent. me1 13:13 PT-INR Sent. me1 13:13 Troponin HS Sent. me1 13:13 Lipase Sent. me1 13:15 XRAY Chest (1 view) In Process Unspecified. EDMS 14:10 EKG done, by ED staff, reviewed by Valorie Chowdhury RN. me1 14:56 Rhys Wu MD is Referral Physician. vamsi 15:40 Silvino Romero MD is Hospitalizing Provider. vamsi 21:45 Patient admitted, IV remains in place. me1 Administered Medications: 13:23 Drug: NS 0.9% IV 1000 ml IV at 1 bolus Per protocol; to be given as a bolus over 60 me1 minutes Route: IV; Rate: 1 bolus; Site: right hand; 14:30 Follow up: Response: No adverse reaction; IV Status: Completed infusion; IV Intake: me1 1000ml 14:27 Drug: Magnesium Sulfate IVPB 1 grams IVPB once over 1 hrs Route: IVPB; Infused Over: 1 me1 hrs; Site: right hand; 15:28 Follow up: Response: No adverse reaction; IV Status: Completed infusion me1 14:27 Drug: NS 0.9% IV 1000 ml IV at 1000 ml once; to be given as a bolus over 60 minutes me1 Route: IV; Rate: 1000 ml; Site: right hand; 15:29 Follow up: IV Status: Completed infusion me1 Medication: 13:11 VIS not applicable for this client. me1 Intake: 14:30 IV: 1000ml; Total: 1000ml. me1 Outcome: 14:57 Discharge ordered by . vamsi 15:42 Decision to Hospitalize by Provider. vamsi 21:45 Admitted to ER Hold. Please see [facility] for further documentation. me1 21:45 Condition: stable 21:45 Instructed on the need for admit, 11/13 12:17 Patient left the ED. eb Signatures: Dispatcher [employer] Alex Justice MD MD cha Botello, Elizabeth eb Eddleman, Michelle, KENTRELL RN me1 Matt Shen
--- NOTE | 2024-11-12 14:57 | EDPHYS ---
Physician Documentation [facility] Name: Estephanie Wasserman Age: 64 yrs Sex: Female : 1960 Arrival Date: 11/12/2024 Time: 12:31 Bed 23 Private MD: ED Physician Alex Ashley HPI: 11/12 14:38 This 64 yrs old Female presents to ER via EMS with complaints of Near Syncope.vamsi 14:38 The patient has experienced near-syncope, almost passed out, felt dizzy. Onset: The vamsi symptoms/episode began/occurred just prior to arrival. Duration: This was a single episode, that lasted 20 second(s). Context: the episode(s) was witnessed, by family, gave plasma, had near syncope. Associated injury: The patient did not suffer any apparent associated injury. Associated signs and symptoms: The patient has no apparent associated signs or symptoms. Current symptoms: Currently, the patient is not experiencing any symptoms, the patient feels back to baseline. The patient has experienced similar episodes in the past, a few times. Historical: - Allergies: 13:05 Morphine (Respiratory distress); me1 - PMHx: 13:05 Depression; Diabetes - NIDDM; me1 - PSHx: 13:05 gastric sleeve; left knee; right knee; Tonsillectomy; me1 - Immunization history:: Adult Immunizations up to date. - Infectious Disease History:: Denies. - Social history:: Smoking status: Patient denies any tobacco usage or history of. - Family history:: not pertinent. ROS: 14:38 Constitutional: Negative for fever, chills, and weight loss, Eyes: Negative for injury, vamsi pain, redness, and discharge, ENT: Negative for injury, pain, and discharge, Neck: Negative for injury, pain, and swelling, Cardiovascular: Negative for chest pain, palpitations, and edema, Respiratory: Negative for shortness of breath, cough, wheezing, and pleuritic chest pain, Abdomen/GI: Negative for abdominal pain, nausea, vomiting, diarrhea, and constipation, Back: Negative for injury and pain, : Negative for injury, bleeding, discharge, and swelling, MS/Extremity: Negative for injury and deformity, Skin: Negative for injury, rash, and discoloration, Psych: Negative for depression, anxiety, suicide ideation, homicidal ideation, and hallucinations, Allergy/Immunology: Negative for hives, rash, and allergies, Endocrine: Negative for neck swelling, polydipsia, polyuria, polyphagia, and marked weight changes, Hematologic/Lymphatic: Negative for swollen nodes, abnormal bleeding, and unusual bruising, 14:38 Neuro: Positive for dizziness, near syncope, weakness, Exam: 14:38 Constitutional: This is a well developed, well nourished patient who is awake, alert, vamsi and in no acute distress. Head/Face: Normocephalic, atraumatic. Eyes: Pupils equal round and reactive to light, extra-ocular motions intact. Lids and lashes normal. Conjunctiva and sclera are non-icteric and not injected. Cornea within normal limits. Periorbital areas with no swelling, redness, or edema. ENT: Nares patent. No nasal discharge, no septal abnormalities noted. Tympanic membranes are normal and external auditory canals are clear. Oropharynx with no redness, swelling, or masses, exudates, or evidence of obstruction, uvula midline. Mucous membranes moist. Neck: Trachea midline, no thyromegaly or masses palpated, and no cervical lymphadenopathy. Supple, full range of motion without nuchal rigidity, or vertebral point tenderness. No Meningismus. Chest/axilla: Normal chest wall appearance and motion. Nontender with no deformity. No lesions are appreciated. Cardiovascular: Regular rate and rhythm with a normal S1 and S2. No gallops, murmurs, or rubs. Normal PMI, no JVD. No pulse deficits. Respiratory: Lungs have equal breath sounds bilaterally, clear to auscultation and percussion. No rales, rhonchi or wheezes noted. No increased work of breathing, no retractions or nasal flaring. Abdomen/GI: Soft, non-tender, with normal bowel sounds. No distension or tympany. No guarding or rebound. No evidence of tenderness throughout. Back: No spinal tenderness. No costovertebral tenderness. Full range of motion. Skin: Warm, dry with normal turgor. Normal color with no rashes, no lesions, and no evidence of cellulitis. MS/ Extremity: Pulses equal, no cyanosis. Neurovascular intact. Full, normal range of motion., bilateral aka Neuro: Awake and alert, GCS 15, oriented to person, place, time, and situation. Cranial nerves II-XII grossly intact. Motor strength 5/5 in all extremities. Sensory grossly intact. Cerebellar exam normal. Normal gait. Psych: Awake, alert, with orientation to person, place and time. Behavior, mood, and affect are within normal limits. 14:38 ECG was reviewed by the Attending Physician. 14:54 Musculoskeletal/extremity: DVT Exam: No signs of deep vein thrombosis. no pain, no vamsi swelling, no tenderness, negative Homans' sign noted on exam, no appreciated bluish discoloration, no erythema, no increased warmth, Vital Signs: 13:00 BP 99 / 62; Pulse 76; Resp 19; Temp 98.3; Pulse Ox 100% ; Weight 87.54 kg; Height 5 ft. me1 5 in. ; Pain 0/10; 13:15 BP 97 / 61; Pulse 81; Resp 16; Pulse Ox 100% ; me1 14:00 BP 96 / 78; Pulse 86; Resp 16; Pulse Ox 97% ; me1 15:00 BP 121 / 70; Pulse 97; Resp 16; Pulse Ox 100% ; me1 15:21 BP 102 / 53 Supine; Pulse 111; Resp 16; Pulse Ox 98% ; me1 15:22 BP 97 / 53 Sitting; Pulse 111; Resp 16; Pulse Ox 98% ; me1 15:23 BP 77 / 49; Pulse 112; Resp 16; Pulse Ox 99% ; me1 16:00 BP 84 / 51; Pulse 92; Resp 16; Pulse Ox 98% ; me1 17:00 BP 96 / 62; Pulse 88; Resp 16; Pulse Ox 95% ; me1 18:00 BP 101 / 51; Pulse 104; Resp 16; Pulse Ox 96% ; me1 19:00 BP 121 / 64; Pulse 85; Resp 16; Pulse Ox 100% ; me1 20:00 BP 99 / 48; Pulse 111; Resp 6; Pulse Ox 98% ; me1 21:00 BP 109 / 58; Pulse 99; Resp 17; Pulse Ox 96% ; me1 21:48 BP 124 / 73; Pulse 90; Resp 16; Pulse Ox 96% ; me1 13:00 Body Mass Index 32.12 (87.54 kg, 165.1 cm) de1 13:00 Pain Scale: Adult de1 MDM: 12:40 Medical Screening Exam initiated vamsi 14:54 Differential Diagnosis: aortic aneurysm, cardiac arrhythmia, drug effect, GI bleed, vamsi idiopathic syncope, pseudo seizure, seizure, sepsis, transient ischemic attack, vasovagal episode. Data reviewed: vital signs, nurses notes, EMS record, lab test result(s), EKG, radiologic studies, plain films. Consideration of Admission/Observation Escalation of care including admission/observation considered. I considered the following discharge prescriptions or medication management in the emergency department Medications were administered in the Emergency Department. See MAR. Independent interpretation of the following test(s) in the Emergency Department EKG: See my EKG interpretation above. Test considered but Not performed: Ultrasound no 2 d echo. Historians other than the Patient: Spouse/Significant Other: spouse well informed. Care significantly affected by the following chronic conditions: Diabetes, Obesity, depression. 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 11/12 12:41 Order name: Basic Metabolic Panel; Complete Time: 14:15 [facility] 11/12 12:41 Order name: CBC with Diff; Complete Time: 14:15 [facility] 11/12 12:41 Order name: LFT's; Complete Time: 14:15 [facility] 11/12 12:41 Order name: Magnesium; Complete Time: 14:15 [facility] 11/12 12:41 Order name: NT PRO-BNP; Complete Time: 14:15 [facility] 11/12 12:41 Order name: PT-INR; Complete Time: 14:15 [facility] 11/12 12:41 Order name: Troponin HS; Complete Time: 14:15 [facility] 11/12 12:41 Order name: Lipase; Complete Time: 14:15 [facility] 11/12 12:41 Order name: Urinalysis w/ reflexes; Complete Time: 14:15 [facility] 11/12 14:16 Order name: Urine Culture [facility] 11/12 16:46 Order name: Basic Metabolic Panel [facility] 11/12 16:46 Order name: Basic Metabolic Panel [facility] 11/12 16:46 Order name: Basic Metabolic Panel [facility] 11/12 16:46 Order name: Basic Metabolic Panel [facility] 11/12 16:46 Order name: Basic Metabolic Panel [facility] 11/12 16:46 Order name: Basic Metabolic Panel [facility] 11/12 16:46 Order name: Basic Metabolic Panel [facility] 11/12 16:46 Order name: Basic Metabolic Panel [facility] 11/12 16:46 Order name: CBC with Automated Diff [facility] 11/12 16:46 Order name: CBC with Automated Diff [facility] 11/12 16:46 Order name: CBC with Automated Diff [facility] 11/12 16:46 Order name: CBC with Automated Diff [facility] 11/12 16:46 Order name: CBC with Automated Diff [facility] 11/12 16:46 Order name: CBC with Automated Diff [facility] 11/12 16:46 Order name: CBC with Automated Diff [facility] 11/12 16:46 Order name: CBC with Automated Diff [facility] 11/12 16:46 Order name: Comprehensive Metabolic Panel [facility] 11/12 16:46 Order name: Comprehensive Metabolic Panel [facility] 11/12 16:46 Order name: Magnesium ED[facility] 11/12 16:46 Order name: Magnesium EDMS 11/12 16:46 Order name: Magnesium EDMS 11/12 16:46 Order name: Magnesium EDMS 11/12 16:46 Order name: Magnesium EDMS 11/12 16:46 Order name: Magnesium [facility] 11/12 16:46 Order name: Magnesium EDMS 11/12 16:46 Order name: Magnesium [facility] 11/12 12:41 Order name: XRAY Chest (1 view); Complete Time: 14:15 [facility] 11/12 12:41 Order name: Cardiac monitoring; Complete Time: 14:10 [facility] 11/12 12:41 Order name: EKG - Nurse/Tech; Complete Time: 14:10 [facility] 11/12 12:41 Order name: IV Saline Lock; Complete Time: 12:55 [facility] 11/12 12:41 Order name: Labs collected and sent; Complete Time: 12:55 [facility] 11/12 12:41 Order name: O2 Per Protocol; Complete Time: 13:13 [facility] 11/12 12:41 Order name: O2 Sat Monitoring; Complete Time: 13:13 [facility] 11/12 12:41 Order name: PO challenge; Complete Time: 14:10 [facility] 11/12 13:12 Order name: Labs - recollect needed: recollect the blue top; Complete Time: 14:10 11/12 14:16 Order name: Orthostatics; Complete Time: 15:29 vamsi EC:38 Rate is 84 beats/min. Rhythm is regular. QRS [place] is Normal. [place] interval is normal. QRS vamsi interval is normal. QT interval is normal. No Q waves. T waves are Normal. No ST changes noted. Clinical impression: Normal ECG and No evidence of ischemia. Interpreted by me. Administered Medications: 13:23 Drug: NS 0.9% IV 1000 ml IV at 1 bolus Per protocol; to be given as a bolus over 60 me1 minutes Route: IV; Rate: 1 bolus; Site: right hand; 14:30 Follow up: Response: No adverse reaction; IV Status: Completed infusion; IV Intake: me1 1000ml 14:27 Drug: Magnesium Sulfate IVPB 1 grams IVPB once over 1 hrs Route: IVPB; Infused Over: 1 me1 hrs; Site: right hand; 15:28 Follow up: Response: No adverse reaction; IV Status: Completed infusion me1 14:27 Drug: NS 0.9% IV 1000 ml IV at 1000 ml once; to be given as a bolus over 60 minutes me1 Route: IV; Rate: 1000 ml; Site: right hand; 15:29 Follow up: IV Status: Completed infusion me1 Disposition Summary: 11/12/24 15:42 Hospitalization Ordered Notes: Hospitalization Status: Observation vamsi Provider: Silvino Romero vamsi Condition: Fair(11/12/24 15:42) vamsi Problem: new(11/12/24 15:42) vamsi Symptoms: have improved(11/12/24 15:42) vamsi Bed/Room Type: Standard vamsi Location: [facility] ER HOLD(11/12/24 20:19) Room Assignment: ERHOLD-(11/12/24 20:19) cg Diagnosis - Syncope Near(11/12/24 15:42) vamsi - Orthostatic hypotension vamsi - Weakness vamsi Forms: - Medication Reconciliation Form vamsi - SBAR form vamsi - Leadership Thank You Letter vamsi Signatures: Dispatcher [employer] Aelx Justice MD MD cha Garcia, Cindy, KENTRELL RN Dena Elizondo Michelle, RN RN me1 Corrections: (The following items were deleted from the chart) 12:42 12:41 BASIC METABOLIC PANEL+C.LAB.BRZ ordered. EDMS EDMS 12:42 12:41 CBC+H.LAB.BRZ ordered. EDMS EDMS 12:42 12:41 HEPATIC FUNCTION+C.LAB.BRZ ordered. EDMS EDMS 12:42 12:41 MAGNESIUM+C.LAB.BRZ ordered. EDMS EDMS 12:42 12:42 PROBNP+C.LAB.BRZ ordered. EDMS EDMS 12:42 12:42 PROTIME (+INR)+COAG.LAB.BRZ ordered. EDMS EDMS 12:42 12:42 Troponin High Sensitivity+C.LAB.BRZ ordered. EDMS EDMS 12:42 12:42 LIPASE+C.LAB.BRZ ordered. EDMS EDMS 12:42 12:42 Urinalysis+U.LAB.BRZ ordered. EDMS EDMS 12:42 12:42 Chest Single View+RAD.RAD.BRZ ordered. EDMS EDMS 14:17 14:17 Urine Culture+BA.LAB.BRZ ordered. EDMS EDMS 15:39 14:57 Home vamsi vamsi 15:39 14:57 new vamsi vamsi 15:39 14:57 have improved vamsi vamsi 15:39 14:57 Stable vamsi vamsi 15:39 14:57 Syncope Near vamsi vamsi 15:39 14:57 Hypotension, unspecified - resolved vamsi vamsi 20:19 15:42 Telemetry/MedSurg (observation) vamsi cg 20:19 15:42 vamsi cg
[2024-11-12] MEDS ORDERED: ONDANSETRON 4 MG/2 ML VIAL IV PRN ×2 (16:42)
[2024-11-12] MEDS ORDERED: ACETAMINOPHEN 500 MG TAB PO PRN (16:42)
--- NOTE | 2024-11-12 16:50 | P.HP ---
Certification for Inpatient Patient admitted to: Observation With expected LOS: <2 Midnights Practitioner: I am a practitioner with admitting privileges, knowledge of patient current condition, hospital course, and medical plan of care. Services: Services provided to patient in accordance with Admission requirements found in Title 42 Section 412.3 of the Code of Federal Regulations Patient History Date of Service: 11/12/24 Reason for admission: Presyncope History of Present Illness: 64-year-old female with history of depression, admitted for presyncope episode while donating plasma. Per patient, while donating plasma, she suddenly felt like she could not breathe, did not feel well, nauseated and dry heaving. Medical staff checked her vitals and noted that she was hypotensive and tachycardic so EMS was called and patient was brought to the emergency room. In the ER vitals positive for orthostatic hypotension with systolic blood pressure decreasing from 102 supine to 77 standing. At bedside currently, patient blood pressure is in the 80s. Per patient she did not have breakfast prior to plasma donation. Allergies morphine Allergy (Verified 02/09/19 20:29) Unknown Home Medications: Sertraline HCl 50 mg PO DAILY 10/11/19 - Past Medical/Surgical History Diabetic: Yes -: depression -: dm -: shoulder sx -: gastric bypass -: multiple sx on each of knees -: sx top of r foot 2x - Family History Father -: Heart disease, Diabetes Mother -: Heart disease, Diabetes - Social History Alcohol use: No CD- Drugs: No Caffeine use: Yes Review of Systems 10-point ROS is otherwise unremarkable Physical Examination - Physical Exam General: Alert, In no apparent distress, Oriented x3 HEENT: Atraumatic, PERRLA Neck: Supple Respiratory: Clear to auscultation bilaterally, Normal air movement, Diminished Cardiovascular: No edema, Normal pulses Capillary refill: <2 Seconds Gastrointestinal: Normal bowel sounds Musculoskeletal: No clubbing, No swelling, No contractures Neurological: Normal gait, Normal speech, Normal strength at 5/5 x4 extr - Studies Laboratory Data (last 24 hrs) 11/12/24 11/12/24 11/12/24 14:00 12:54 12:54 WBC 8.10 Hgb 13.6 Hct 40.2 Plt Count 206 PT 11.2 INR 0.98 Sodium 138 Potassium 4.0 BUN 10 Creatinine 0.62 Glucose 260 H Magnesium 1.7 Total Bilirubin 0.3 AST 17 ALT 20 Alkaline Phosphatase 62 Lipase 21 Assessment and Plan - Plan 1. Presyncope secondary to orthostatic hypotension - Symptoms occurred while donating plasma - SBP currently in the 80s - Orthostatic vital signs positive in the ER. SBP dropped from 102 supine to 77 standing - On IV fluids - On teletypesetter monitor 2. History of anxiety/depression - Will resume Zoloft at home dose 3. DVT prophylaxis - SCDs - Advance Directives Does patient have a Living Will: No Does patient have a Durable POA for Healthcare: No
[2024-11-12] MEDS: NA CHLORIDE 0.9% 1,000 ML IV SCH (17:00)
[2024-11-12 22:07] VITALS: BMI 32.1
[2024-11-13 05:54] LABS: Absolute Eosinophils 0.1 K/uL (0-0.5); Absolute Lymphocytes (CBC) 2.6 K/uL (0.7-4.9); Absolute Monocytes 0.3 K/uL (0.1-1.3); Absolute Neutrophil 2.2 K/uL (1.8-8.0); Eosinophils % 1.4 % (0-4.4); Hematocrit 33.4 % (36.0-45.0); Hemoglobin 11.1 g/dL (12.0-15.0); Lymphocytes % 49.3 % (15.3-44.8); MCH 24.2 pg (27.0-35.0); MCHC 33.2 g/dL (32.0-36.0); MCV 72.9 fL (80-100); MPV 9.6 fL (7.6-11.3); Monocytes % 6.2 % (3.3-12.3); Neutrophils % 42.1 % (41.7-73.7); Platelets 141 thou/uL (152-406); RBC Red Blood Cell Count 4.58 M/uL (3.86-4.86); Red Cell Distribution Width 14.9 % (12.1-15.2)
[2024-11-13 06:14] LABS: ALT/SGPT 18 U/L (13-56); Albumin 2.6 g/dL (3.4-5.0); Albumin/Globulin Ratio 1.1 (1.1-1.8); Alkaline Phosphatase 54 U/L (45-117); BUN Blood Urea Nitrogen 8 mg/dL (7-18); Bicarbonate 24 mEq/L (21-32); Bilirubin Total 0.2 mg/dL (0.2-1.0); Globulin 2.4 g/dL (2.3-3.5); Glomerular Filtration Rate 102 ml/min (=/>90); Glucose Level 267 mg/dL (74-106); Sodium Level 141 mEq/L (136-145)
[2024-11-13 06:24] LABS: AST/SGOT < 10 U/L (15-37)
[2024-11-13] MEDS ORDERED: NA CHLORIDE 0.9% 1,000 ML ONE (06:28)
[2024-11-13 08:21] VITALS: BP 91/61; TEMP 98.1
[2024-11-13] MEDS: SERTRALINE HCL 50 MG TAB PO SCH (09:00)
--- NOTE | 2024-11-13 11:22 | P.DS ---
Admission Date: 11/12/24 Discharge Date: 11/13/24 Disposition: ROUTINE DISCHARGE Discharge Condition: GOOD Reason for Admission: Presyncope Brief History of Present Illness: 64-year-old female with history of depression, admitted for presyncope episode while donating plasma. Per patient, while donating plasma, she suddenly felt like she could not breathe, did not feel well, nauseated and dry heaving. Medical staff checked her vitals and noted that she was hypotensive and tachycardic so EMS was called and patient was brought to the emergency room. In the ER vitals positive for orthostatic hypotension with systolic blood pressure decreasing from 102 supine to 77 standing. At bedside currently, patient blood pressure is in the 80s. Per patient she did not have breakfast prior to plasma donation. Hospital Course: 64-year-old female with history of anxiety/depression, admitted for symptomatic hypotension secondary to orthostasis, which occurred while donating plasma. Was brought to the ER by EMS. SBP in the ER was in the 80s. Orthostatic vital signs were positive. Patient received IV fluids and monitored overnight in the ER. The following day feeling much better with improved blood pressure so subsequently discharged Vital Signs/Physical Exam: Temp Pulse Resp BP Pulse Ox 98.1 F 71 18 91/61 99 11/13/24 08:00 11/13/24 08:00 11/13/24 08:00 11/13/24 08:00 11/13/24 08:00 General: Alert, Oriented x3 HEENT: Atraumatic, Normocephalic, PERRLA Neck: Supple Respiratory: Clear to auscultation bilaterally, Normal air movement Cardiovascular: No edema, Normal pulses, Regular rate/rhythm Gastrointestinal: Normal bowel sounds, Soft and benign, Non-distended Musculoskeletal: No clubbing, No swelling, No contractures Laboratory Data at Discharge: WBC 5.20 thou/uL (4.3-10.9) 11/13/24 05:45 Hgb 11.1 g/dL (12.0-15.0) L D 11/13/24 05:45 Hct 33.4 % (36.0-45.0) L 11/13/24 05:45 Plt Count 141 thou/uL (152-406) L D 11/13/24 05:45 PT 11.2 SECONDS (10-13.0) 11/12/24 14:00 INR 0.98 11/12/24 14:00 Sodium 141 mEq/L (136-145) 11/13/24 05:45 Potassium 4.0 mEq/L (3.5-5.1) 11/13/24 05:45 BUN 8 mg/dL (7-18) 11/13/24 05:45 Creatinine 0.58 mg/dL (0.55-1.02) 11/13/24 05:45 Glucose 267 mg/dL (74-106) H 11/13/24 05:45 Magnesium 2.0 mg/dL (1.6-2.4) 11/13/24 05:45 Total Bilirubin 0.2 mg/dL (0.2-1.0) 11/13/24 05:45 AST < 10 U/L (15-37) L 11/13/24 05:45 ALT 18 U/L (13-56) 11/13/24 05:45 Alkaline Phosphatase 54 U/L (45-117) 11/13/24 05:45 Lipase 21 U/L (13-75) 11/12/24 12:54 Home Medications: RX: Sertraline HCl 50 mg PO DAILY 10/11/19 Followup: NONE,NONE [Primary Care Provider] -
[2024-11-13 12:36] VITALS: O2SAT 96
--- NOTE | 2024-11-15 10:56 | EKG ---
Test Date: 2024-11-12 Test Time: 13:53:27 [employer] Job [employer]ter: [place] MEASUREMENT RESULTS: Intervals: Rate: 84 KS: 136 QRSD: 72 QT: 358 QTc: 423 [place]: P: 6 KS: 136 QRS: 13 T: 12 INTERPRETIVE STATEMENTS: Normal sinus rhythm Normal ECG Compared to ECG 01/08/2021 02:52:58 No significant changes Electronically Signed On 11-15-24 10:50:41 CDT by Octavio Whitney
== END 2024-11-13 10:10 | disposition home or self-care (01) ==
LOC: ER 12:31 → ERHOLD 21:40
PROVIDERS: ADMIT Internal Medicine; ATTEND Internal Medicine
DX: I95.1 Orthostatic hypotension (principal); R55 Syncope and collapse; F32.A Depression, unspecified; F41.9 Anxiety disorder, unspecified; Z88.5 Allergy status to narcotic agent
CPT/HCPCS: 96365; 96361; 87088; 85025 ×2; 81001; 87086; 80048; 36415; 83735 ×2; 85610; 80076; 84484; 83690; 80053; 83880; 71045; 99285; J3475; J7030 ×3; 93005; G0378